=== PATIENT | female | born 1990 | race Caucasian/White ===

== ENCOUNTER → 2019-05-17 12:30 | Outpatient (CLI) | payer BC, SELFPAY ==
[2019-05-17 13:58] LABS: INR 1.92 (0.9-1.1); Prothrombin Time 19.4 seconds (9.4-11.8)
--- NOTE | 2019-05-17 14:52 | HMH.PHAINT ---
ACC-TEXTED PATIENT WITH INR 1.92. SHE INDICATED SHE HAD MISSED ANOTHER DOSE THIS PAST WEEK SHE HAD LAST WEEK TOO. HAVING HER TAKE EXTRA 3 MG DAILY X3 DAYS THEN RESUME 6 MG DAILY THEREAFTER. WILL RECHECK NEXT WEEK.
== END ==
LOC: ACC 12:34 → LAB 12:39
PROVIDERS: Visit Provider Pediatrics Pediatric Cardiology
DX: Z51.81 Encounter for therapeutic drug level monitoring (principal); Z79.01 Long term (current) use of anticoagulants; I48.91 Unspecified atrial fibrillation; Q24.5 Malformation of coronary vessels; Z95.2 Presence of prosthetic heart valve; Z95.1 Presence of aortocoronary bypass graft
CPT/HCPCS: 36415; 85610

== ENCOUNTER → 2019-06-18 11:12 | Outpatient (CLI) | payer SELFPAY ==
[2019-06-18 12:12] LABS: INR 1.58 (0.9-1.1); Prothrombin Time 16.1 seconds (9.4-11.8)
== END ==
PROVIDERS: Visit Provider Pediatrics Pediatric Cardiology
DX: Z51.81 Encounter for therapeutic drug level monitoring (principal); Z79.01 Long term (current) use of anticoagulants; I48.91 Unspecified atrial fibrillation; Q24.5 Malformation of coronary vessels; Z95.2 Presence of prosthetic heart valve
CPT/HCPCS: 36415; 85610

== ENCOUNTER → 2019-06-25 11:42 | Outpatient (CLI) | payer SELFPAY ==
[2019-06-25 12:22] LABS: INR 3.89 (0.9-1.1); Prothrombin Time 37.9 seconds (9.4-11.8)
--- NOTE | 2019-06-25 13:46 | HMH.PHAINT ---
ACC-PATIENT'S INR WAS DRAWN IN LAB (INR 3.89). PATIENT'S THERAPEUTIC GOAL IS 3-4. RECOMMENDED PATIENT STOP LOVENOX INJECTIONS AT THIS TIME AND CONTINUE WITH WARFARIN 6 MG DAILY. PATIENT INDICATED SHE HAS BEEN SICK OVER THE LAST WEEK AND SUSPECTS UTI. HAD HER TALK TO YENI MOSHER, FINANCIAL COUNSELOR, AND TO FOLLOW UP IN [facility] FOR POSSIBLE UTI.
== END ==
PROVIDERS: Visit Provider Pediatrics Pediatric Cardiology
DX: Z51.81 Encounter for therapeutic drug level monitoring (principal); Z79.01 Long term (current) use of anticoagulants; I48.91 Unspecified atrial fibrillation; Q24.5 Malformation of coronary vessels; Z95.2 Presence of prosthetic heart valve
CPT/HCPCS: 36415; 85610

== ENCOUNTER → 2019-07-16 18:30 | Outpatient (CLI) | payer SELFPAY ==
[2019-07-16 18:53] LABS: INR 2.94 (0.9-1.1)
--- NOTE | 2019-08-06 14:03 | HMH.PHAINT ---
08/06/19 INR-PATIENT OBTAINED INR FROM OUTPATIENT LAB. INR WAS 1.3 ON 08/04/19. INQUIRED WITH PATIENT ABOUT MISSING DOSES. PATIENT INDICATED SHE HAD BEEN ADMITTED TO HOSPITAL FOR OVARIAN CYST. GIVEN 2 INJECTIONS OF VITAMIN K DUE TO BLEEDING ASSOCIATED WITH THIS. RECOMMENDED PATIENT TAKE HER LOVENOX INJECTIONS BUT PATIENT IS NOT DOING THIS DUE TO HER PERCEIVED RISK OF HAVING A BLEED. PATIENT TAKING 9 MG DAILY X 3 DAYS, THEN RESUMING WARFARIN 7 MG ON TUE/TUE/TUE; 6 MG ON TUE/TUE/RADHA/SAT. FOLLOW UP INR ON 08/13/19
== END ==
PROVIDERS: Visit Provider Pediatrics Pediatric Cardiology
DX: Z51.81 Encounter for therapeutic drug level monitoring (principal); Z79.01 Long term (current) use of anticoagulants
CPT/HCPCS: 36415; 85610

== ENCOUNTER → 2019-08-13 12:05 | Outpatient (CLI) | payer BC, SELFPAY ==
[2019-08-13 12:45] LABS: INR 2.85 (0.9-1.1); Prothrombin Time 28.2 seconds (9.4-11.8)
== END ==
PROVIDERS: Visit Provider Pediatrics Pediatric Cardiology
DX: Z51.81 Encounter for therapeutic drug level monitoring (principal); Z79.01 Long term (current) use of anticoagulants; I48.91 Unspecified atrial fibrillation; Q24.5 Malformation of coronary vessels; Z95.2 Presence of prosthetic heart valve
CPT/HCPCS: 36415; 85610

== ENCOUNTER → 2019-08-28 12:17 | Outpatient (CLI) | payer BC, SELFPAY ==
[2019-08-28 13:49] LABS: INR 4.81 (0.9-1.1); Prothrombin Time 46.4 seconds (9.4-11.8)
== END ==
PROVIDERS: Visit Provider Pediatrics Pediatric Cardiology
DX: Z51.81 Encounter for therapeutic drug level monitoring (principal); Z79.01 Long term (current) use of anticoagulants
CPT/HCPCS: 36415; 85610

== ENCOUNTER 2019-09-10 13:59 | Outpatient (CLI) | payer BC, SELFPAY ==
[2019-09-10 15:19] LABS: PHA INR Fingerstick 2.1 (0.9-1.1)
== END 2019-09-10 15:21 | disposition home or self-care (01) ==
LOC: ACC 14:02
PROVIDERS: Visit Provider Pediatrics Pediatric Cardiology
DX: Z51.81 Encounter for therapeutic drug level monitoring (principal); Z79.01 Long term (current) use of anticoagulants; I48.91 Unspecified atrial fibrillation; Q24.5 Malformation of coronary vessels; Z95.2 Presence of prosthetic heart valve; Z95.1 Presence of aortocoronary bypass graft
CPT/HCPCS: 85610; 99211; G0463

== ENCOUNTER 2019-09-10 14:37 | Emergency (ER) | payer BC, SELFPAY ==
[2019-09-10 14:49] VITALS: BP 126/79; PULSE 85; RESP 18; TEMP 37.1; O2SAT 99; BMI 20.6
--- NOTE | 2019-09-10 14:56 | HMH.EDUTC ---
[facility] [place]ression: Strep throat Disposition: Home, Self-Care Condition on Discharge: Good Instructions: Strep Throat, DI for Strep Throat Additional Instructions: Drink plenty of fluids. Take tylenol or ibuprofen for pain or fever. Throw your tooth brush away and get a new one tomorrow. Take the medications as directed. Follow up with your regular doctor. GO TO THE ER FOR ANY WORSENING SYMPTOMS Prescriptions: Amoxicillin [Amoxicillin 500mg Tab] 500 mg PO TID 10 Days #30 tab Transmission Status: Received by [id number] Referrals: Provider,Referral, [Primary Care Provider] - Time of Disposition: 15:09 Medical Decision Making - Medical Records Medical records reviewed: No: I reviewed the patient's medical records. - Carlos Inquiry Pt receiving controlled substance: No Vital Signs: 09/10/19 14:49 09/10/19 15:10 Temperature 98.7 F 98.7 F Temperature Source Oral Pulse Rate 85 Pulse Rate [Right Radial] 85 Respiratory Rate 18 18 Blood Pressure 126/79 Blood Pressure [Right Arm] 126/79 Blood Pressure Mean [Right Arm] 94 Blood Pressure Source [Right Arm] Automatic Cuff Blood Pressure Position [Right Arm] Sitting 02 Sat by Pulse Oximetry 99 Oxygen Delivery Method Room Air - Lab Data Lab results reviewed: Yes: I reviewed the patient's lab results. Lab Results 09/10/19 15:03: Strep Scn Rapid Clinic Positive [place] [facility] [place] - General Stated complaint: sore throat,swollen glands,headache Time Seen by Provider: 09/10/19 14:56 Mode of Arrival: Ambulatory Source of Information: Patient, Significant Other Limitations: No Limitations Description of Symptoms (Recalled from Triage Doc. by RN): PT C/O SORE THROAT, EAR PAIN, SCRATCHY THROAT, AND SAYS THAT HER THROAT FEELS SWOLLEN. HEENT Symptoms (Recalled from RN notes): Yes (SORE THROAT AND EARS) Resp Symptoms (Recalled from RN notes): No Skin Symptoms (Recalled from RN notes): No MS Symptoms (Recalled from RN notes): No Functional Status (Recalled from RN notes): N/A - History of Present Illness Provider Complaint: She c/o sore throat, mild head ache, and swollen lymph nodes in her neck for the past 3 days. She denies any cough, fever, known exposure to COVID-19. - Related Data Home Medications Medication Instructions Recorded Confirmed Warfarin Sodium [Coumadin] 6 mg PO DAILY 06/25/19 06/25/19 Previous Rx's Medication Instructions Recorded Nitrofurantoin Monohyd/M-Cryst 100 mg PO BID 10 Days #20 cap 06/25/19 [Macrobid 100 mg Capsule] Phenazopyridine HCl [Pyridium 200 pow PO TID #6 tab 06/25/19 200mg Tablet] Amoxicillin [Amoxicillin 500mg Tab] 500 mg PO TID 10 Days #30 tab 09/10/19 Allergies Allergy/AdvReac Type Severity Reaction Status Date / Time No Known Allergies Allergy Verified 06/25/19 12:59 - Worker's Comp Is this a Worker's Comp case?: No [facility] History - Hepatitis A Screen Drug use history?: No High risk sexual behaviors?: No History of sexually transmitted infection?: No Currently employed?: No Childcare worker?: No Do you have indoor plumbing?: Yes Do you have electricity?: Yes Attestation statement:: This patient has been screened for Hepatitis A risk factors. I have reviewed the patient's past medical history: Yes Medical History: Denies:: Diabetes Mellitus Type 1, Diabetes Mellitus Type 2 - Social History Smoking Status: Never smoker Alcohol Intake: never Occupational Status: employed ROS Obtained: Yes All systems reviewed & no additional complaints - Constitutional Constitutional: Denies chills, Reports fever(s), Reports poor appetite, Reports malaise - Eyes Eyes: Denies eye discharge - ENT Ears, Nose, Mouth, and Throat: Reports as per HPI Physical Exam - General General appearance: alert, in no apparent distress - Head Head exam: atraumatic, normocephalic, normal inspection - Eye Eye exam: Present: normal appeara
[2019-09-10 15:10] VITALS: BP 126/79; PULSE 85; RESP 18; TEMP 37.1; O2SAT 99
[2019-10-12 15:43] LABS: UTC Strep Screen (Rapid) Negative (Negative)
== END 2019-09-10 15:14 | disposition home or self-care (01) ==
PROVIDERS: Emergency Provider Nurse Practitioner Family
DX: J02.0 Streptococcal pharyngitis (principal); Z95.2 Presence of prosthetic heart valve; Z79.899 Other long term (current) drug therapy
CPT/HCPCS: 87880; 99201

== ENCOUNTER 2019-09-26 12:48 | Outpatient (CLI) | payer BC, SELFPAY ==
[2019-09-26 13:44] LABS: PHA INR Fingerstick 3.8 (0.9-1.1)
== END 2019-09-26 13:47 | disposition home or self-care (01) ==
LOC: ACC 12:49
PROVIDERS: Visit Provider Pediatrics Pediatric Cardiology
DX: Z51.81 Encounter for therapeutic drug level monitoring (principal); Z79.01 Long term (current) use of anticoagulants; I48.91 Unspecified atrial fibrillation; Q24.5 Malformation of coronary vessels; Z95.2 Presence of prosthetic heart valve
CPT/HCPCS: 85610; 99211; G0463

== ENCOUNTER 2019-10-12 13:33 | Outpatient (CLI) | payer BC, SELFPAY ==
[2019-10-12 15:28] LABS: PHA INR Fingerstick 2.3 (0.9-1.1)
== END 2019-10-12 15:30 | disposition home or self-care (01) ==
LOC: ACC 13:35
PROVIDERS: Visit Provider Pediatrics Pediatric Cardiology
DX: Z51.81 Encounter for therapeutic drug level monitoring (principal); Z79.01 Long term (current) use of anticoagulants; I48.91 Unspecified atrial fibrillation; Q24.5 Malformation of coronary vessels; Z95.2 Presence of prosthetic heart valve
CPT/HCPCS: 85610; 99211; G0463

== ENCOUNTER 2019-10-12 13:57 | Emergency (ER) | payer BC, SELFPAY ==
[2019-10-12 14:11] VITALS: BP 126/88; PULSE 94; RESP 19; TEMP 37.2; O2SAT 100; BMI 18.8
[2019-10-12 14:18] LABS: UTC Strep Screen (Rapid) Negative (Negative)
--- NOTE | 2019-10-12 14:33 | HMH.EDUTC ---
[facility] [place] Clinical Impression: Pharyngitis Disposition: Home, Self-Care Condition on Discharge: Good Instructions: Sore Throat, DI for Pharyngitis/Tonsillopharyngitis -- Adult Additional Instructions: Drink plenty of fluids. Take tylenol or ibuprofen for pain or fever. Take the medications as directed. Follow up with your regular doctor. GO TO THE ER FOR ANY WORSENING SYMPTOMS Prescriptions: Ondansetron [Zofran 4mg ODT] 4 mg PO Q8HP PRN #10 tab.rapdis PRN Reason: Nausea Transmission Status: Received by [id number] predniSONE [Deltasone 10mg tablet] 10 mg PO BID 3 Days #6 tab Transmission Status: Received by [id number] Azithromycin [Z-Aiden 250mg Tab*] 250 mg PO UD DOSE PK #6 tab Transmission Status: Received by [id number] Referrals: Provider,Referral, MD [Primary Care Provider] - Forms: Work/School Release Time of Disposition: 14:45 Medical Decision Making - Medical Records Medical records reviewed: No: I reviewed the patient's medical records. - Carlos Inquiry Pt receiving controlled substance: No Vital Signs: 10/12/19 14:11 10/12/19 14:45 Temperature 98.9 F 98.9 F Temperature Source Oral Pulse Rate 94 H Pulse Rate [Right Brachial] 94 H Respiratory Rate 19 19 Blood Pressure 126/88 Blood Pressure [Right Arm] 126/88 Blood Pressure Mean [Right Arm] 100 Blood Pressure Source [Right Arm] Automatic Cuff Blood Pressure Position [Right Arm] Sitting 02 Sat by Pulse Oximetry 100 Oxygen Delivery Method Room Air - Lab Data Lab results reviewed: Yes: I reviewed the patient's lab results. Lab Results 10/12/19 13:58: Strep Scn Rapid Clinic Negative Orders (Tests/Meds): ORDERS Category Date Time Status SARS-CoV-2, [place] ([place]) Stat Lab 10/12/19 14:30 Received Strep Screen Confirmation Stat Micro 10/12/19 13:58 Received [facility] [place] HPI - General Stated complaint: sore throat Time Seen by Provider: 10/12/19 14:15 Mode of Arrival: Ambulatory Source of Information: Patient Limitations: No Limitations Description of Symptoms (Recalled from Triage Doc. by RN): PATIENT C/O SORE THROAT X 2 WEEKS. WAS TREATED FOR STREP 2 WEEKS AGO AND SHE FEELS IT IS NOT BETTER. PATIENT ALSO STATES THAT SHE VOMITED AT WORK D/T A MIGRAINE A FEW DAYS AGO AND HER EMPLOYER IS REQUESTING THAT SHE BE TESTED FOR COVID. HEENT Symptoms (Recalled from RN notes): Yes Resp Symptoms (Recalled from RN notes): No Skin Symptoms (Recalled from RN notes): No MS Symptoms (Recalled from RN notes): No Functional Status (Recalled from RN notes): WNL - History of Present Illness Provider Complaint: She states that she did not get much better after being treated for strep throat approx 2 weeks ago. She did take all her prescribed medications. She denies any fever or cough. - Related Data Home Medications Medication Instructions Recorded Confirmed Warfarin Sodium [Coumadin] 6 mg PO DAILY 06/25/19 10/12/19 Previous Rx's Medication Instructions Recorded Azithromycin [Z-Aiden 250mg Tab*] 250 mg PO UD DOSE PK #6 tab 10/12/19 Ondansetron [Zofran 4mg ODT] 4 mg PO Q8HP PRN #10 tab.rapdis 10/12/19 predniSONE [Deltasone 10mg tablet] 10 mg PO BID 3 Days #6 tab 10/12/19 Allergies Allergy/AdvReac Type Severity Reaction Status Date / Time No Known Allergies Allergy Verified 06/25/19 12:59 - Worker's Comp Is this a Worker's Comp case?: No [facility] History - Hepatitis A Screen Drug use history?: No High risk sexual behaviors?: No History of sexually transmitted infection?: No Currently employed?: No Childcare worker?: No Do you have indoor plumbing?: Yes Do you have electricity?: Yes Attestation statement:: This patient has been screened for Hepatitis A risk factors. I have reviewed the patient's past medical history: Yes Medical History: Denies:: Diabetes Mellitus Type 1, Diabetes Mellitus Type 2 - Social History Smoking Status: Never smoker Alcoho
[2019-10-12 14:45] VITALS: BP 126/88; PULSE 94; RESP 19; TEMP 37.2; O2SAT 100
[2019-10-14 08:18] LABS: Covid-19 Nasal PCR Sendout UK Not Detected
== END 2019-10-12 14:55 | disposition home or self-care (01) ==
PROVIDERS: Emergency Provider Nurse Practitioner Family
DX: J02.9 Acute pharyngitis, unspecified (principal)
CPT/HCPCS: 87880; 99202; U0003

== ENCOUNTER 2019-10-23 12:51 | Outpatient (CLI) | payer BC, SELFPAY ==
[2019-10-25 13:19] LABS: PHA INR Fingerstick 2.5 (0.9-1.1)
== END 2019-10-25 13:21 | disposition home or self-care (01) ==
LOC: ACC 12:53
PROVIDERS: Visit Provider Pediatrics Pediatric Cardiology
DX: Z51.81 Encounter for therapeutic drug level monitoring (principal); Z79.01 Long term (current) use of anticoagulants; I48.91 Unspecified atrial fibrillation; Q24.5 Malformation of coronary vessels; Z95.2 Presence of prosthetic heart valve
CPT/HCPCS: 85610; 99211; G0463

== ENCOUNTER → 2019-10-23 13:49 | Outpatient (CLI) | payer BC, SELFPAY ==
[2019-10-25 15:39] LABS: Covid-19 Nasal PCR Sendout Lex NOT DETECTED
== END ==
PROVIDERS: Visit Provider Internal Medicine Cardiovascular Disease
DX: Z01.818 Encounter for other preprocedural examination (principal)
CPT/HCPCS: U0004

== ENCOUNTER 2019-11-22 13:03 | Outpatient (CLI) | payer BC, SELFPAY | END 2019-11-22 15:19 | disposition home or self-care (01) | LOC: ACC 13:04 | PROVIDERS: PCP Pediatrics Pediatric Cardiology; Visit Provider Pediatrics Pediatric Cardiology | DX: Z51.81 Encounter for therapeutic drug level monitoring (principal); Z79.01 Long term (current) use of anticoagulants; I48.91 Unspecified atrial fibrillation; Q24.5 Malformation of coronary vessels; Z95.2 Presence of prosthetic heart valve | CPT/HCPCS: 85610; 99211; G0463 ==

== ENCOUNTER 2019-12-18 12:30 | Outpatient (CLI) | payer BC, SELFPAY ==
[2019-12-18 13:31] LABS: PHA INR Fingerstick 3.1 (0.9-1.1)
== END 2019-12-18 13:34 | disposition home or self-care (01) ==
LOC: ACC 12:33
PROVIDERS: PCP Pediatrics Pediatric Cardiology; Visit Provider Pediatrics Pediatric Cardiology
DX: Z79.01 Long term (current) use of anticoagulants (principal); I48.91 Unspecified atrial fibrillation; Z95.2 Presence of prosthetic heart valve; Q24.5 Malformation of coronary vessels
CPT/HCPCS: 85610; 99211; G0463

== ENCOUNTER 2019-12-19 12:16 | Emergency (ER) | payer BC, SELFPAY ==
[2019-12-19 12:19] VITALS: BP 155/83; PULSE 70; RESP 18; TEMP 36.8; O2SAT 99; BMI 22.1
--- NOTE | 2019-12-19 13:08 | HMH.EDGENADL ---
ED Disposition Clinical Impression: COVID-19 Disposition: Home, Self-Care Condition on Discharge: Good Instructions: DI for Diarrhea and Traveler's Diarrhea -- Adult, DI for Diarrhea and Traveler's Diarrhea -- Child, DI for Nausea -- Adult, DI for Nausea -- Child Referrals: Carol Ann Reinoso [Primary Care Provider] - - Critical Care Critical Care Time: No Attestation: On 12/19/19, the high probability of a clinically significant, sudden or life threatening deterioration of the following system(s) required my full and direct attention, intervention and personal management. The time I documented below is in addition to time spent performing reported procedures but includes the following listed in this critical care notation. Medical Decision Making - Medical Records Medical records reviewed: Yes: I reviewed the patient's medical records. - Carlos Inquiry Pt receiving controlled substance: No Vital Signs: 12/19/19 12:19 Temperature 98.2 F Temperature Source Oral Pulse Rate [Left Radial] 70 Respiratory Rate 18 Blood Pressure [Right Arm] 155/83 H Blood Pressure Mean [Right Arm] 107 Blood Pressure Source [Right Arm] Automatic Cuff Blood Pressure Position [Right Arm] Sitting 02 Sat by Pulse Oximetry 99 Oxygen Delivery Method Room Air Orders (Tests/Meds): ORDERS Category Date Time Status Covid-19 Nasal PCR Sendout Julio Stat Lab 12/19/19 12:35 Ordered Medical Decision Narrative: Presents for coronavirus 19 testing. On examination patient's vitals are stable, no tachycardia, hypoxemia, no significant dyspnea or work of breathing. Patient is well examination, abdominal exam benign, nontender to palpation, patient has mild cramps. Patient had coronavirus 19 swab performed here, patient was discharged in stable condition, follow-up with her primary care doctor for further work-up. Patient will be contacted by her primary care doctor regarding results. General Adult HPI - General Chief complaint: Nausea/Vomiting/Diarrhea Stated complaint: nausa vomiting muscle pain Time Seen by Provider: 12/19/19 13:08 Mode of Arrival: Ambulatory Limitations: No Limitations Description of Symptoms (Recalled from ER Triage Doc. by RN): PT states that she has had a small amout of vomiting once with some left leg pain. States she wants to get tested for covid due to her being in contact with a child whose family memeber has covid. NO direct contact with that person just the child. - History of Present Illness HPI narrative: Patient is a 29-year-old female, denies any past medical surgical history, patient is requesting a covid swab today. Patient has an acquaintance who tested positive for COVID earlier today, patient denies any chest pain, shortness of breath, does have some mild abdominal pain, and one episode of vomiting nonbilious nonbloody. Patient eats she would just like a COVID swab and would like to be discharged home. - Related Data Home Medications Medication Instructions Recorded Confirmed Warfarin Sodium [Coumadin] 6 mg PO DAILY 06/25/19 12/18/19 Warfarin Sodium 1 mg PO MOFR 12/18/19 12/18/19 Allergies Allergy/AdvReac Type Severity Reaction Status Date / Time No Known Allergies Allergy Verified 06/25/19 12:59 [facility] History - Hepatitis A Screen Drug use history?: No High risk sexual behaviors?: No History of sexually transmitted infection?: No Currently employed?: No Childcare worker?: No Do you have indoor plumbing?: Yes Do you have electricity?: Yes Attestation statement:: This patient has been screened for Hepatitis A risk factors. Medical History: Denies:: Diabetes Mellitus Type 1, Diabetes Mellitus Type 2 - Social History Smoking Status: Never smoker Alcohol Intake: never Occupational Status: other ROS Obtained: Yes All systems reviewed & no additional complaints Physical Exam - General General appearance: alert, in no apparent distress - Respiratory Respiratory
[2019-12-19 13:45] VITALS: BP 122/87; PULSE 85; RESP 17; TEMP 36.6; O2SAT 100
[2019-12-20 15:53] LABS: Covid-19 Nasal PCR Sendout Lex NOT DETECTED
== END 2019-12-19 13:45 | disposition home or self-care (01) ==
PROVIDERS: Emergency Provider Emergency Medicine; PCP Nurse Practitioner Family
DX: U07.1 COVID-19 (principal); R03.0 Elevated blood-pressure reading, without diagnosis of hypertension
CPT/HCPCS: 99282; U0004

== ENCOUNTER 2020-01-14 14:22 | Emergency (ER) | payer BC, SELFPAY ==
[2020-01-14 14:33] VITALS: BP 113/78; PULSE 69; RESP 18; TEMP 36.8; O2SAT 96; BMI 22.9
--- NOTE | 2020-01-14 14:42 | HMH.EDUTC ---
[facility] [place] Clinical Impression: Pharyngitis Qualifiers: Pharyngitis/tonsillitis etiology: unspecified etiology Qualified Code(s): J02.9 - Acute pharyngitis, unspecified Disposition: Home, Self-Care Condition on Discharge: Good Instructions: Sore Throat, DI for Pharyngitis/Tonsillopharyngitis -- Adult Additional Instructions: Drink plenty of fluids. Take tylenol or ibuprofen for pain or fever. Take the medications as directed. Follow up with your regular doctor. GO TO THE ER FOR ANY WORSENING SYMPTOMS Prescriptions: Azithromycin [Z-Aiden 250mg Tab*] 250 mg PO UD DOSE PK #6 tab Transmission Status: Received by [id number] Referrals: PCP,No [Primary Care Provider] - Forms: Work/School Release Time of Disposition: 14:49 Medical Decision Making - Medical Records Medical records reviewed: No: I reviewed the patient's medical records. - Carlos Inquiry Pt receiving controlled substance: No Vital Signs: 01/14/20 14:33 01/14/20 14:55 Temperature 98.3 F 98.3 F Temperature Source Oral Oral Pulse Rate 69 Pulse Rate [Radial] 69 Respiratory Rate 18 18 Blood Pressure 113/78 Blood Pressure [Right Arm] 113/78 Blood Pressure Mean [Right Arm] 89 Blood Pressure Source Automatic Cuff Blood Pressure Source [Right Arm] Automatic Cuff Blood Pressure Position Sitting Blood Pressure Position [Right Arm] Sitting 02 Sat by Pulse Oximetry 96 Oxygen Delivery Method Room Air Room Air - Lab Data Lab results reviewed: Yes: I reviewed the patient's lab results. Lab Results 01/14/20 14:39: Strep Scn Rapid Clinic Negative Orders (Tests/Meds): ORDERS Category Date Time Status Strep Screen Confirmation Stat Micro 01/14/20 14:39 Received [facility] [place] HPI - General Stated complaint: sore throat Time Seen by Provider: 01/14/20 14:42 Mode of Arrival: Ambulatory Source of Information: Patient Limitations: DEAF Description of Symptoms (Recalled from Triage Doc. by RN): SORE THROAT, EARS ARE ITCHY HEENT Symptoms (Recalled from RN notes): Yes Resp Symptoms (Recalled from RN notes): No Skin Symptoms (Recalled from RN notes): No MS Symptoms (Recalled from RN notes): No Functional Status (Recalled from RN notes): WNL - History of Present Illness Provider Complaint: She c.o sore throat and feeling bad for the past 2 days. She is also having a mild cough and some nausea. She denies any fever or chills. She denies any known contact with COVID-19. - Related Data Home Medications Medication Instructions Recorded Confirmed Warfarin Sodium [Coumadin] 6 mg PO DAILY 06/25/19 12/18/19 Warfarin Sodium 1 mg PO MOFR 12/18/19 12/18/19 Previous Rx's Medication Instructions Recorded Azithromycin [Z-Aiden 250mg Tab*] 250 mg PO UD DOSE PK #6 tab 01/14/20 Allergies Allergy/AdvReac Type Severity Reaction Status Date / Time No Known Allergies Allergy Verified 06/25/19 12:59 - Worker's Comp Is this a Worker's Comp case?: No [facility] History - Hepatitis A Screen Drug use history?: No High risk sexual behaviors?: No History of sexually transmitted infection?: No Currently employed?: No Childcare worker?: No Do you have indoor plumbing?: Yes Do you have electricity?: Yes Attestation statement:: This patient has been screened for Hepatitis A risk factors. I have reviewed the patient's past medical history: Yes Medical History: Reports:: Internal Pacemaker Denies:: Diabetes Mellitus Type 1, Diabetes Mellitus Type 2 Other Surgeries: Yes: Pacemaker - Social History Smoking Status: Never smoker Alcohol Intake: never Occupational Status: other ROS Obtained: Yes All systems reviewed & no additional complaints - Constitutional Constitutional: Reports chills, Denies fever(s), Reports poor appetite, Reports malaise - Eyes Eyes: Denies eye discharge - ENT Ears, Nose, Mouth, and Throat: Reports as per HPI - Cardiovascular Cardiovascular: Denies chest pain - Respiratory Res
[2020-01-14 14:47] LABS: UTC Strep Screen (Rapid) Negative (Negative)
[2020-01-14 14:55] VITALS: BP 113/78; PULSE 69; RESP 18; TEMP 36.8; O2SAT 96
== END 2020-01-14 14:56 | disposition home or self-care (01) ==
PROVIDERS: Emergency Provider Nurse Practitioner Family
DX: J02.9 Acute pharyngitis, unspecified (principal); Z95.0 Presence of cardiac pacemaker
CPT/HCPCS: 87880; 99201

== ENCOUNTER 2020-01-15 13:02 | Outpatient (CLI) | payer BC, SELFPAY ==
[2020-01-15 13:36] LABS: PHA INR Fingerstick 2.5 (0.9-1.1)
== END 2020-01-15 13:37 | disposition home or self-care (01) ==
PROVIDERS: PCP Internal Medicine Adolescent Medicine; Visit Provider Pediatrics Pediatric Cardiology
DX: Z51.81 Encounter for therapeutic drug level monitoring (principal); Z79.01 Long term (current) use of anticoagulants; I48.91 Unspecified atrial fibrillation; Q24.5 Malformation of coronary vessels; Z95.2 Presence of prosthetic heart valve; Z95.1 Presence of aortocoronary bypass graft
CPT/HCPCS: 85610; 99211; G0463

== ENCOUNTER 2020-02-12 12:56 | Outpatient (CLI) | payer BC, SELFPAY ==
[2020-02-12 14:05] LABS: PHA INR Fingerstick 2.7 (0.9-1.1)
== END 2020-02-12 14:09 | disposition home or self-care (01) ==
LOC: ACC 12:58
PROVIDERS: Visit Provider Pediatrics Pediatric Cardiology
DX: Z51.81 Encounter for therapeutic drug level monitoring (principal); Z79.01 Long term (current) use of anticoagulants; Z95.2 Presence of prosthetic heart valve
CPT/HCPCS: 85610; 99211; G0463

== ENCOUNTER 2020-02-24 12:51 | Emergency (ER) | payer BC, SELFPAY ==
[2020-02-24] VITALS (8 sets, daily range): BP systolic 105–130; BP diastolic 59–88; PULSE 60–91; RESP 12–17; TEMP 36.6–36.7; O2SAT 91–99; BMI 22.9
--- NOTE | 2020-02-24 12:50 | ECG_ITS ---
APPROVED REPORT Exam: Resting ECG HR:81 bpm ECG Measurements Heart Rate 81 AXES TN 136 P 217 QRSd 106 QRS 87 QT 380 T -2 QTc 441 Conclusion Unusual P axis, possible ectopic atrial rhythm with undetermined rhythm irregularity Incomplete left bundle branch block Nonspecific T wave abnormality Abnormal ECG Electronically signed by : Musa Rosales, 02/26/2020 14:48:40
--- NOTE | 2020-02-24 12:57 | XR_ITS ---
PROCEDURE: XR CHEST PORTABLE CLINICAL HISTORY: chest pain COMPARISON: No exams were available for comparison FINDINGS: The cardiomediastinal silhouette and pulmonary vascularity are within normal limits. The lungs are clear without infiltrates, suspicious nodules, or pleural effusions. The left-sided cardiac pacemaker a unipolar Julio road projecting over the right side of the heart at the level of the right hilum there monitor lines overlying the chest and sternal wire sutures are seen as well. No acute bony abnormalities. IMPRESSION: No acute findings. Dictated by: Dr. Loki Nguyen MD 02/24/2020 14:37 Dr. Loki Nguyen MD in [place] 02/24/2020 14:37
--- NOTE | 2020-02-24 13:20 | HMH.EDCP ---
ED Disposition Clinical Impression: Atypical chest pain Disposition: Home, Self-Care Condition on Discharge: Good Instructions: DI for Atypical Chest Pain Additional Instructions: Follow up with your Cardiologists at and return with any concerns. Referrals: PCP,No [Primary Care Provider] - - Critical Care Critical Care Time: No Attestation: On 02/24/20, the high probability of a clinically significant, sudden or life threatening deterioration of the following system(s) required my full and direct attention, intervention and personal management. The time I documented below is in addition to time spent performing reported procedures but includes the following listed in this critical care notation. Medical Decision Making - Carlos Inquiry Pt receiving controlled substance: No Vital Signs: 02/24/20 12:51 02/24/20 12:52 02/24/20 13:00 Temperature 97.9 F Temperature Source Temporal Artery Scan Pulse Rate Pulse Rate [Right] 91 H 91 H 85 Respiratory Rate 17 Blood Pressure Blood Pressure [Right Arm] 122/88 122/88 130/80 Blood Pressure Mean [Right Arm] 99 99 96 Blood Pressure Source Blood Pressure Source [Right Arm] Automatic Cuff Automatic Cuff Blood Pressure Position Blood Pressure Position [Right Arm] Sitting Sitting 02 Sat by Pulse Oximetry 91 L 99 99 Oxygen Delivery Method Room Air 02/24/20 13:30 02/24/20 13:52 02/24/20 14:00 Temperature Temperature Source Pulse Rate Pulse Rate [Right] 71 60 60 Respiratory Rate Blood Pressure Blood Pressure [Right Arm] 111/74 105/59 L 105/59 L Blood Pressure Mean [Right Arm] 86 74 74 Blood Pressure Source Blood Pressure Source [Right Arm] Automatic Cuff Automatic Cuff Automatic Cuff Blood Pressure Position Blood Pressure Position [Right Arm] Sitting Sitting Sitting 02 Sat by Pulse Oximetry 95 96 95 Oxygen Delivery Method Room Air Room Air Room Air 02/24/20 14:22 02/24/20 14:25 Temperature 97.9 F 98.1 F Temperature Source Oral Pulse Rate 62 90 Pulse Rate [Right] Respiratory Rate 15 12 Blood Pressure 105/59 L 106/60 L Blood Pressure [Right Arm] Blood Pressure Mean [Right Arm] Blood Pressure Source Automatic Cuff Blood Pressure Source [Right Arm] Blood Pressure Position Sitting Blood Pressure Position [Right Arm] 02 Sat by Pulse Oximetry Oxygen Delivery Method Room Air - Lab Data Lab Results 02/24/20 13:18: WBC 7.5, RBC 5.58 H, Hgb 17.1 H, Hct 51.2 H, MCV 91.7, MCH 30.7, MCHC 33.5, RDW 12.5, Plt Count 270, MPV 7.8, Neut % (Auto) 51.4, Lymph % (Auto) 35.7, Beltrami % (Auto) 4.9, Eos % (Auto) 7.2, Baso % (Auto) 0.8, Neut # (Auto) 3.9, Lymph # (Auto) 2.7, [place]trami # (Auto) 0.4, Eos # (Auto) 0.5 H, Baso # (Auto) 0.1 02/24/20 13:18: Sodium 142, Potassium 3.9, Chloride 102, Carbon Dioxide 28, Anion Gap 15.9 H, BUN 14, Creatinine 0.70, Estimated Creat Clear 95, Estimated GFR 100, Est GFR ( Amer) 121, Glucose 79, Calcium 10.1, Troponin I < 0.01 02/24/20 13:18: Serum HCG, Qual Negative Result diagrams: 02/24/20 13:18 02/24/20 13:18 Orders (Tests/Meds): ED MEDICATIONS Discontinued Medications Generic Name Dose Route Start Last Admin Trade Name Freq PRN Reason Stop Dose Admin Aspirin 324 mg 02/24/20 12:57 02/24/20 13:03 Aspirin 81mg Chewable Tablet PO 02/24/20 12:58 324 mg ONCE ONE Administration Naproxen 500 mg 02/24/20 13:59 02/24/20 14:20 Naproxen 500mg Tablet PO 02/24/20 14:00 500 mg ONCE ONE Administration Medical Decision Narrative: The patient is a 29 year old female who presents with chest pain. On arrival she is awake, alert stable. EKG obtained and is nonischemic. Benign exam and well appearing. Labs including CBC, BMP, troponins were obtained and unremarkable. CXR is unremarkable per my read. Urine is negative. Given naproxen for pain with improvement. ON reassesment patient is feeling better. Will discharge her with follow up with her Cardiol
[2020-02-24 13:28] LABS: Basophils # 0.1 K/mm3 (0-0.2); Basophils % 0.8 % (0.1-2.0); Eosinophils # 0.5 K/mm3 (0.0-0.4); Eosinophils % 7.2 % (0.1-12.0); Hematocrit 51.2 % (37.0-47.0); Hemoglobin 17.1 g/dL (12.2-16.2); Lymphocytes # 2.7 K/mm3 (0.7-4.5); Lymphocytes % 35.7 % (10-50); Mean Corpuscular HGB Conc 33.5 g/dL (31.8-35.4); Mean Corpuscular Hemoglobin 30.7 pg (27.0-31.2); Mean Corpuscular Volume 91.7 fl (81-99); Mean Platelet Volume 7.8 fl (7.4-10.4); Monocytes # 0.4 K/mm3 (0.1-1.0); Monocytes % 4.9 % (1.7-9.3); Neutrophils # 3.9 K/mm3 (1.8-7.8); Neutrophils % 51.4 % (37.0-80.0); Platelet Count 270 K/mm3 (142-424); Red Blood Count 5.58 M/mm3 (4.20-5.40); Red Cell Distribution Width 12.5 % (11.5-17.5); White Blood Count 7.5 K/mm3 (4.8-10.8)
[2020-02-24 13:31] LABS: Chloride 102 mmol/L (98-107)
[2020-02-24 13:32] LABS: Potassium 3.9 mmoL/L (3.5-5.1); Sodium 142 mmol/L (136-145)
[2020-02-24 13:35] LABS: Anion Gap 15.9 mEq/L (5-15); Blood Urea Nitrogen 14 mg/dl (7-17); Calcium 10.1 mg/dl (8.4-10.2); Carbon Dioxide 28 mmol/L (22.0-30.0); Creatinine Clearance Estimated 95 mL/min (50-200); Estimated Glomerular Filt Rate 100 ml/min (>60); GFR (African American) 121 ML/MIN (>60); Glucose 79 mg/dl (74-100)
--- NOTE | 2020-02-24 13:37 | PC.NURSE ---
Rad at bedside
[2020-02-24 13:47] LABS: Troponin I < 0.01 ng/ml (0.00-0.034)
[2020-02-24 13:49] LABS: HCG Qualitative, Serum Negative (Negative)
== END 2020-02-24 14:45 | disposition home or self-care (01) ==
PROVIDERS: Emergency Provider Emergency Medicine
DX: R07.89 Other chest pain (principal); Z95.0 Presence of cardiac pacemaker; Z95.1 Presence of aortocoronary bypass graft; Z95.2 Presence of prosthetic heart valve; Z79.899 Other long term (current) drug therapy
CPT/HCPCS: 71045; 80048; 84484; 84703; 85025; 93005; 99283

== ENCOUNTER 2020-02-27 12:58 | Outpatient (CLI) | payer BC, SELFPAY ==
[2020-02-27 13:47] LABS: PHA INR Fingerstick 1.8 (0.9-1.1)
== END 2020-02-27 13:53 | disposition home or self-care (01) ==
LOC: ACC 12:59
PROVIDERS: Visit Provider Pediatrics Pediatric Cardiology
DX: Z51.81 Encounter for therapeutic drug level monitoring (principal); Z79.01 Long term (current) use of anticoagulants; I48.91 Unspecified atrial fibrillation; Q24.5 Malformation of coronary vessels; Z95.2 Presence of prosthetic heart valve; Z95.1 Presence of aortocoronary bypass graft
CPT/HCPCS: 85610; 99211; G0463

== ENCOUNTER → 2020-03-10 16:28 | Outpatient (CLI) | payer BC, SELFPAY | PROVIDERS: Visit Provider Family Medicine | DX: N39.0 Urinary tract infection, site not specified (principal) | CPT/HCPCS: 87086 ==

== ENCOUNTER 2020-03-12 11:25 | Outpatient (CLI) | payer BC, SELFPAY ==
[2020-03-12 13:42] LABS: Prothrombin Time 60.9 seconds (9.4-11.8)
[2020-03-12 15:34] LABS: PHA INR Fingerstick 5.4 (0.9-1.1)
== END 2020-03-12 15:36 | disposition home or self-care (01) ==
LOC: ACC 11:26
PROVIDERS: PCP Family Medicine; Visit Provider Family Medicine
DX: Z51.81 Encounter for therapeutic drug level monitoring (principal); Z79.01 Long term (current) use of anticoagulants; I48.91 Unspecified atrial fibrillation; Q24.5 Malformation of coronary vessels; Z95.2 Presence of prosthetic heart valve
CPT/HCPCS: 36415; 85610; 99211; G0463

== ENCOUNTER → 2020-03-12 11:55 | Outpatient (CLI) | payer BC, SELFPAY | PROVIDERS: Visit Provider Family Medicine | DX: Z51.81 Encounter for therapeutic drug level monitoring (principal); Z79.01 Long term (current) use of anticoagulants | CPT/HCPCS: 36415; 85610 ==

== ENCOUNTER 2020-03-17 13:01 | Outpatient (CLI) | payer BC, SELFPAY ==
[2020-03-17 14:59] LABS: PHA INR Fingerstick 3.9 (0.9-1.1)
== END 2020-03-17 15:33 | disposition home or self-care (01) ==
LOC: ACC 13:01
PROVIDERS: PCP Family Medicine; Visit Provider Family Medicine
DX: Z51.81 Encounter for therapeutic drug level monitoring (principal); Z79.01 Long term (current) use of anticoagulants; I48.91 Unspecified atrial fibrillation; Q24.5 Malformation of coronary vessels; Z95.2 Presence of prosthetic heart valve
CPT/HCPCS: 85610; 99211; G0463

== ENCOUNTER 2020-03-27 12:51 | Outpatient (CLI) | payer BC, SELFPAY ==
[2020-03-27 14:37] LABS: PHA INR Fingerstick 3.9 (0.9-1.1)
== END 2020-03-27 14:39 | disposition home or self-care (01) ==
LOC: ACC 12:52
PROVIDERS: PCP Family Medicine; Visit Provider Family Medicine
DX: Z51.81 Encounter for therapeutic drug level monitoring (principal); Z79.01 Long term (current) use of anticoagulants; I48.91 Unspecified atrial fibrillation; Q24.5 Malformation of coronary vessels; Z95.2 Presence of prosthetic heart valve; Z95.1 Presence of aortocoronary bypass graft
CPT/HCPCS: 85610; 99211; G0463

== ENCOUNTER 2020-04-16 13:00 | Outpatient (CLI) | payer BC, SELFPAY ==
[2020-04-16 16:02] LABS: INR 6.19 (0.9-1.1); Prothrombin Time 58.2 seconds (9.4-11.8)
== END 2020-04-16 16:10 | disposition home or self-care (01) ==
LOC: ACC 13:01
PROVIDERS: PCP Family Medicine; Visit Provider Family Medicine
DX: Z51.81 Encounter for therapeutic drug level monitoring (principal); Z79.01 Long term (current) use of anticoagulants
CPT/HCPCS: 36415; 85610; 99211; G0463

== ENCOUNTER 2020-04-22 12:21 | Outpatient (CLI) | payer BC, SELFPAY ==
[2020-04-22 14:15] LABS: PHA INR Fingerstick 2.3 (0.9-1.1)
== END 2020-04-22 14:16 | disposition home or self-care (01) ==
PROVIDERS: PCP Family Medicine; Visit Provider Family Medicine
DX: Z51.81 Encounter for therapeutic drug level monitoring (principal); Z79.01 Long term (current) use of anticoagulants; I48.91 Unspecified atrial fibrillation; Q24.5 Malformation of coronary vessels; Z95.2 Presence of prosthetic heart valve
CPT/HCPCS: 85610; 99211; G0463

== ENCOUNTER 2020-04-30 12:44 | Outpatient (CLI) | payer BC, SELFPAY ==
--- NOTE | 2020-04-30 13:29 | XR_ITS ---
PROCEDURE: XR WRIST LT MIN 3V CLINICAL INDICATION: left wrist pain/ cyst evaluation COMPARISON: No exams were available for comparison FINDINGS: No fracture or dislocation. No lytic or blastic change. There is normal mineralization. The joint spaces are well-preserved. No significant degenerative/arthritic changes. No erosive changes evident. Other findings:None. IMPRESSION: No acute findings. Dictated by: Foster Patel MD 04/30/2020 17:46 Foster Patel MD in [facility] 04/30/2020 17:46
[2020-04-30 14:58] LABS: Prothrombin Time 54.9 seconds (9.4-11.8)
[2020-04-30 15:04] LABS: PHA INR Fingerstick 4.7 (0.9-1.1)
== END 2020-04-30 15:23 | disposition home or self-care (01) ==
PROVIDERS: PCP Family Medicine; Visit Provider Family Medicine
DX: M25.532 Pain in left wrist (principal); Z51.81 Encounter for therapeutic drug level monitoring; Z79.01 Long term (current) use of anticoagulants
CPT/HCPCS: 36415; 73110; 85610; 99211; G0463

== ENCOUNTER 2020-05-07 14:30 | Outpatient (CLI) | payer BC, SELFPAY ==
[2020-05-07 15:16] LABS: PHA INR Fingerstick 1.5 (0.9-1.1)
== END 2020-05-07 15:18 | disposition home or self-care (01) ==
LOC: ACC 14:30
PROVIDERS: PCP Family Medicine; Visit Provider Family Medicine
DX: Z51.81 Encounter for therapeutic drug level monitoring (principal); Z79.01 Long term (current) use of anticoagulants; I48.91 Unspecified atrial fibrillation; Q24.5 Malformation of coronary vessels; Z95.2 Presence of prosthetic heart valve
CPT/HCPCS: 85610; 99211; G0463

== ENCOUNTER 2020-05-21 14:30 | Outpatient (CLI) | payer BC, SELFPAY ==
[2020-05-21 16:16] LABS: PHA INR Fingerstick 2.9 (0.9-1.1)
== END 2020-05-21 16:19 | disposition home or self-care (01) ==
LOC: ACC 14:31
PROVIDERS: PCP Family Medicine; Visit Provider Family Medicine
DX: Z51.81 Encounter for therapeutic drug level monitoring (principal); Z79.01 Long term (current) use of anticoagulants; I48.91 Unspecified atrial fibrillation; Q24.5 Malformation of coronary vessels; Z95.2 Presence of prosthetic heart valve
CPT/HCPCS: 85610; 99211; G0463

== ENCOUNTER 2020-06-13 14:22 | Outpatient (CLI) | payer BC, SELFPAY ==
[2020-06-13 15:44] LABS: INR 6.16 (0.9-1.1); Prothrombin Time 56.3 seconds (9.4-11.8)
[2020-06-13 15:57] LABS: PHA INR Fingerstick 5.1 (0.9-1.1)
== END 2020-06-13 16:02 | disposition home or self-care (01) ==
PROVIDERS: PCP Family Medicine; Visit Provider Family Medicine
DX: Z51.81 Encounter for therapeutic drug level monitoring (principal); Z79.01 Long term (current) use of anticoagulants; I48.91 Unspecified atrial fibrillation; Q24.5 Malformation of coronary vessels; Z95.2 Presence of prosthetic heart valve
CPT/HCPCS: 36415; 85610; 99211; G0463

== ENCOUNTER 2020-06-18 13:21 | Outpatient (CLI) | payer BC, SELFPAY ==
[2020-06-18 14:03] LABS: PHA INR Fingerstick 2.7 (0.9-1.1)
== END 2020-06-18 14:22 | disposition home or self-care (01) ==
LOC: ACC 13:22
PROVIDERS: PCP Family Medicine; Visit Provider Family Medicine
DX: Z51.81 Encounter for therapeutic drug level monitoring (principal); Z79.01 Long term (current) use of anticoagulants; I48.91 Unspecified atrial fibrillation; Q24.5 Malformation of coronary vessels; Z95.2 Presence of prosthetic heart valve; Z95.1 Presence of aortocoronary bypass graft
CPT/HCPCS: 85610; 99211; G0463

== ENCOUNTER 2020-07-03 14:58 | Outpatient (CLI) | payer BC, SELFPAY ==
[2020-07-03 15:54] LABS: PHA INR Fingerstick 1.9 (0.9-1.1)
== END 2020-07-03 15:56 | disposition home or self-care (01) ==
LOC: ACC 14:59
PROVIDERS: PCP Family Medicine; Visit Provider Family Medicine
DX: Z51.81 Encounter for therapeutic drug level monitoring (principal); Z79.01 Long term (current) use of anticoagulants; I48.91 Unspecified atrial fibrillation; Q24.5 Malformation of coronary vessels; Z95.2 Presence of prosthetic heart valve; Z95.1 Presence of aortocoronary bypass graft
CPT/HCPCS: 85610; 99211; G0463

== ENCOUNTER → 2020-07-04 16:53 | Outpatient (CLI) | payer BC, SELFPAY ==
[2020-07-04 18:10] LABS: HCG Qualitative, Serum Negative (Negative)
== END ==
PROVIDERS: Visit Provider Family Medicine
DX: N64.4 Mastodynia (principal); R11.2 Nausea with vomiting, unspecified
CPT/HCPCS: 84703

== ENCOUNTER 2020-07-17 13:27 | Outpatient (CLI) | payer BC, SELFPAY | END 2020-07-17 15:43 | disposition home or self-care (01) | LOC: ACC 13:28 | PROVIDERS: PCP Family Medicine; Visit Provider Family Medicine | DX: I48.91 Unspecified atrial fibrillation (principal); Q24.5 Malformation of coronary vessels; Z95.2 Presence of prosthetic heart valve | CPT/HCPCS: 85610; 99211; G0463 ==

== ENCOUNTER 2020-08-08 14:08 | Outpatient (CLI) | payer BC, SELFPAY ==
[2020-08-08 15:07] LABS: INR 5.59 (0.9-1.1); Prothrombin Time 58.1 seconds (10.1-12.5)
== END 2020-08-08 16:21 | disposition home or self-care (01) ==
LOC: ACC 14:09
PROVIDERS: PCP Family Medicine; Visit Provider Family Medicine
DX: Z51.81 Encounter for therapeutic drug level monitoring (principal); Z79.01 Long term (current) use of anticoagulants; I48.91 Unspecified atrial fibrillation; Q24.5 Malformation of coronary vessels; Z95.2 Presence of prosthetic heart valve
CPT/HCPCS: 36415; 85610; 99211; G0463

== ENCOUNTER 2020-08-14 13:52 | Outpatient (CLI) | payer BC, SELFPAY ==
[2020-08-14 15:21] LABS: PHA INR Fingerstick 2.4 (0.9-1.1)
== END 2020-08-14 15:28 | disposition home or self-care (01) ==
LOC: ACC 13:53
PROVIDERS: PCP Emergency Medicine; Visit Provider Family Medicine
DX: Z51.81 Encounter for therapeutic drug level monitoring (principal); Z79.01 Long term (current) use of anticoagulants; I48.91 Unspecified atrial fibrillation; Q24.5 Malformation of coronary vessels; Z95.2 Presence of prosthetic heart valve
CPT/HCPCS: 85610; 99211; G0463

== ENCOUNTER 2020-09-05 12:55 | Outpatient (CLI) | payer BC, SELFPAY ==
[2020-09-05 15:36] LABS: PHA INR Fingerstick 2.1 (0.9-1.1)
== END 2020-09-05 15:38 | disposition home or self-care (01) ==
LOC: ACC 12:55
PROVIDERS: PCP Emergency Medicine; Visit Provider Family Medicine
DX: Z51.81 Encounter for therapeutic drug level monitoring (principal); Z79.01 Long term (current) use of anticoagulants; I48.91 Unspecified atrial fibrillation; Q24.5 Malformation of coronary vessels; Z95.2 Presence of prosthetic heart valve
CPT/HCPCS: 85610; 99211; G0463

== ENCOUNTER → 2020-09-05 17:07 | Outpatient (CLI) | payer BC, SELFPAY | PROVIDERS: Visit Provider Family Medicine | DX: N39.0 Urinary tract infection, site not specified (principal) | CPT/HCPCS: 87086; 87088; 87186 ==

== ENCOUNTER 2020-09-09 11:52 | Outpatient (CLI) | payer BC, SELFPAY ==
[2020-09-09 13:33] LABS: PHA INR Fingerstick 2.1 (0.9-1.1)
== END 2020-09-09 13:35 | disposition home or self-care (01) ==
LOC: ACC 11:53
PROVIDERS: PCP Family Medicine; Visit Provider Family Medicine
DX: Z51.81 Encounter for therapeutic drug level monitoring (principal); Z79.01 Long term (current) use of anticoagulants; I48.91 Unspecified atrial fibrillation; Q24.5 Malformation of coronary vessels; Z95.2 Presence of prosthetic heart valve
CPT/HCPCS: 85610; 99211; G0463

== ENCOUNTER → 2020-09-15 14:05 | Outpatient (CLI) | payer BC, SELFPAY ==
--- NOTE | 2020-09-15 14:10 | US_ITS ---
PROCEDURE: US TRANSVAGINAL CLINICAL INDICATION: pelvic pain/ check for abnormalities COMPARISON: No exams were available for comparison FINDINGS: UTERUS: 7cm x 4cmx 3cm with a combined endometrial thickness of 3.5mm LEFT OVARY: [id number] with a volume of 0.9ml. RIGHT OVARY: [id number] with a volume of 45ml. The right ovary is enlarged. There are at least 3 complex cyst within the right ovary measuring approximately 1.5 cm each containing low level echoes suggesting small hemorrhagic cyst. No cul-de-sac fluid apparent. IMPRESSION: Enlarged right ovary containing at least 3 complex cysts. Consider 6-8 week follow-up to confirm resolution. Dictated by: Foster Patel MD 09/16/2020 07:58 Foster Patel MD in [facility] 09/16/2020 07:58
== END ==
PROVIDERS: PCP Family Medicine; Visit Provider Nurse Practitioner Obstetrics & Gynecology
DX: R10.2 Pelvic and perineal pain (principal)
CPT/HCPCS: 76830

== ENCOUNTER 2020-09-30 13:55 | Outpatient (CLI) | payer BC, SELFPAY ==
[2020-09-30 15:10] LABS: PHA INR Fingerstick 2.3 (0.9-1.1)
== END 2020-09-30 15:18 | disposition home or self-care (01) ==
LOC: ACC 13:56
PROVIDERS: PCP Family Medicine; Visit Provider Family Medicine
DX: Z51.81 Encounter for therapeutic drug level monitoring (principal); Z79.01 Long term (current) use of anticoagulants; I48.91 Unspecified atrial fibrillation; Q24.5 Malformation of coronary vessels; Z95.2 Presence of prosthetic heart valve
CPT/HCPCS: 85610; 99211; G0463

== ENCOUNTER 2020-10-16 13:55 | Outpatient (CLI) | payer BC, SELFPAY ==
[2020-10-16 15:04] LABS: PHA INR Fingerstick 1.7 (0.9-1.1)
== END 2020-10-16 15:20 | disposition home or self-care (01) ==
LOC: ACC 13:55
PROVIDERS: PCP Family Medicine; Visit Provider Family Medicine
DX: Z51.81 Encounter for therapeutic drug level monitoring (principal); Z79.01 Long term (current) use of anticoagulants; I48.91 Unspecified atrial fibrillation; Q24.5 Malformation of coronary vessels; Z95.2 Presence of prosthetic heart valve
CPT/HCPCS: 85610; 99211; G0463

== ENCOUNTER 2020-10-31 13:59 | Outpatient (CLI) | payer BC, SELFPAY ==
[2020-10-31 15:03] LABS: PHA INR Fingerstick 2.7 (0.9-1.1)
== END 2020-10-31 15:11 | disposition home or self-care (01) ==
LOC: ACC 14:00
PROVIDERS: PCP Family Medicine; Visit Provider Family Medicine
DX: Z51.81 Encounter for therapeutic drug level monitoring (principal); Z79.01 Long term (current) use of anticoagulants; I48.91 Unspecified atrial fibrillation; Q24.5 Malformation of coronary vessels; Z95.2 Presence of prosthetic heart valve
CPT/HCPCS: 85610; 99211; G0463

== ENCOUNTER → 2020-11-19 19:08 | Outpatient (CLI) | payer BC, SELFPAY | PROVIDERS: Visit Provider Nurse Practitioner Family | DX: N39.0 Urinary tract infection, site not specified (principal) | CPT/HCPCS: 87086; 87088; 87186 ==

== ENCOUNTER 2020-11-21 14:12 | Outpatient (CLI) | payer BC, SELFPAY ==
[2020-11-21 18:00] LABS: PHA INR Fingerstick 3.9 (0.9-1.1)
== END 2020-11-21 18:04 | disposition home or self-care (01) ==
LOC: ACC 14:13
PROVIDERS: PCP Family Medicine; Visit Provider Family Medicine
DX: Z51.81 Encounter for therapeutic drug level monitoring (principal); Z79.01 Long term (current) use of anticoagulants; I48.91 Unspecified atrial fibrillation; Q24.5 Malformation of coronary vessels; Z95.2 Presence of prosthetic heart valve
CPT/HCPCS: 85610; 99211; G0463

== ENCOUNTER 2020-12-10 14:38 | Outpatient (CLI) | payer BC, SELFPAY ==
[2020-12-10 16:03] LABS: Prothrombin Time 44.3 seconds (10.1-12.5)
[2020-12-10 16:06] LABS: INR 4.17 (0.9-1.1)
== END 2020-12-10 16:38 | disposition home or self-care (01) ==
PROVIDERS: PCP Family Medicine; Visit Provider Family Medicine
DX: Z51.81 Encounter for therapeutic drug level monitoring (principal); Z79.01 Long term (current) use of anticoagulants; I48.91 Unspecified atrial fibrillation; Q24.5 Malformation of coronary vessels; Z95.2 Presence of prosthetic heart valve
CPT/HCPCS: 36415; 85610; 99211; G0463

== ENCOUNTER 2020-12-23 14:17 | Outpatient (CLI) | payer BC, SELFPAY ==
[2020-12-23 16:00] LABS: PHA INR Fingerstick 2.8 (0.9-1.1)
== END 2020-12-23 16:04 | disposition home or self-care (01) ==
LOC: ACC 14:19
PROVIDERS: PCP Family Medicine; Visit Provider Family Medicine
DX: I48.91 Unspecified atrial fibrillation (principal); Q24.5 Malformation of coronary vessels; Z95.2 Presence of prosthetic heart valve; Z51.81 Encounter for therapeutic drug level monitoring; Z79.01 Long term (current) use of anticoagulants
CPT/HCPCS: 85610; 99211; G0463

== ENCOUNTER 2020-12-23 14:51 | Emergency (ER) | payer BC, SELFPAY ==
[2020-12-23 15:41] VITALS: BP 110/64; PULSE 64; RESP 16; TEMP 37; O2SAT 99; BMI 22.9
[2020-12-23 15:48] VITALS: BP 112/64; PULSE 64; RESP 16; TEMP 36.6; O2SAT 100
--- NOTE | 2020-12-23 15:50 | HMH.EDUTC ---
[facility] [place] Clinical Impression: COVID-19 Disposition: Home, Self-Care Condition on Discharge: Good Instructions: DI for COVID-19 (Suspected or Confirmed ), Preventing the Spread of Coronavirus Discharge Instructions Referrals: Brian Narayan MD [Primary Care Provider] - Forms: Work/School Release Medical Decision Making - Carlos Inquiry Pt receiving controlled substance: No Carlos was queried for this patient: No Vital Signs: 12/23/20 15:41 12/23/20 15:48 Temperature 98.6 F 98 F Temperature Source Temporal Artery Scan Pulse Rate 64 Pulse Rate [Right] 64 Respiratory Rate 16 16 Blood Pressure 112/64 Blood Pressure [Right Arm] 110/64 Blood Pressure Mean [Right Arm] 79 Blood Pressure Source Automatic Cuff Blood Pressure Source [Right Arm] Automatic Cuff Blood Pressure Position Sitting Blood Pressure Position [Right Arm] Sitting 02 Sat by Pulse Oximetry 99 Oxygen Delivery Method Room Air Room Air Orders (Tests/Meds): ORDERS Category Date Time Status Covid-19 Nasal PCR ([facility]) Routine Lab 12/23/20 15:37 Ordered [facility] H[place] - General Stated complaint: exposure and symthoms Time Seen by Provider: 12/23/20 15:50 Mode of Arrival: Ambulatory Source of Information: Patient Limitations: No Limitations Description of Symptoms (Recalled from Triage Doc. by RN): pt here for covid test. Brother in law tested positive on . PT c/o sinus problems HEENT Symptoms (Recalled from RN notes): No Resp Symptoms (Recalled from RN notes): No Skin Symptoms (Recalled from RN notes): No MS Symptoms (Recalled from RN notes): No Functional Status (Recalled from RN notes): na - History of Present Illness Provider Complaint: Patient advised that brother in law recently tested positive for COVID and she has been around him recently States that she is having a scratchy throat and nasal congestion and wanted to get tested for COVID - Related Data Home Medications Medication Instructions Recorded Confirmed Warfarin Sodium 1 mg PO MOWEFR 12/18/19 11/19/20 Warfarin Sodium 6 mg PO DAILY 03/17/20 11/19/20 Previous Rx's Medication Instructions Recorded cephalexin 500 mg capsule 500 mg PO BID 10 Days #20 cap 11/19/20 fluconazole 150 mg tablet 150 mg PO Q3D 0 Days #2 tab 11/19/20 Allergies Allergy/AdvReac Type Severity Reaction Status Date / Time No Known Allergies Allergy Verified 11/19/20 14:23 - Worker's Comp Is this a Worker's Comp case?: No [facility] History - Hepatitis A Screen Drug use history?: No High risk sexual behaviors?: No History of sexually transmitted infection?: No Currently employed?: No Childcare worker?: No Do you have indoor plumbing?: Yes Do you have electricity?: Yes Attestation statement:: This patient has been screened for Hepatitis A risk factors. I have reviewed the patient's past medical history: Yes Medical History: Reports:: Internal Pacemaker, Urinary Tract Infection Denies:: Diabetes Mellitus Type 1, Diabetes Mellitus Type 2 Other Surgeries: Yes: Cardiac Surgery, Dilation and Curettage, Mitral Valve Replacement, Pacemaker, Tubal Ligation Amputation: No Fractures: No - Social History Smoking Status: Never smoker Alcohol Intake: never Occupational Status: employed Family Hx:: No significant family history ROS Obtained: Yes All systems reviewed & no additional complaints, Yes Systems reviewed as appropriate & no additional complaints - Constitutional Constitutional: Reports system reviewed and no additional complaints, except as docu, Reports body ache, Reports chills, Denies fever(s), Reports headache(s) - ENT Ears, Nose, Mouth, and Throat: Reports system reviewed and no additional complaints, except as docu, Reports nasal congestion, Reports nasal discharge - Cardiovascular Cardiovascular: Reports system reviewed and no additional complaints, except as docu - Respiratory Respiratory: Reports system reviewed and no additional complaints, e
== END 2020-12-23 15:49 | disposition home or self-care (01) ==
PROVIDERS: Emergency Provider Nurse Practitioner; PCP Family Medicine
DX: Z20.822 Contact with and (suspected) exposure to COVID-19 (principal); Z95.0 Presence of cardiac pacemaker
CPT/HCPCS: 99202; G0463; U0003

== ENCOUNTER 2021-01-07 14:07 | Outpatient (CLI) | payer BC, SELFPAY ==
[2021-01-07 16:29] LABS: PHA INR Fingerstick 2.4 (0.9-1.1)
== END 2021-01-07 16:31 | disposition home or self-care (01) ==
LOC: ACC 14:08
PROVIDERS: PCP Family Medicine; Visit Provider Family Medicine
DX: Z51.81 Encounter for therapeutic drug level monitoring (principal); Z79.01 Long term (current) use of anticoagulants; I48.91 Unspecified atrial fibrillation; Q24.5 Malformation of coronary vessels; Z95.2 Presence of prosthetic heart valve
CPT/HCPCS: 85610; 99211; G0463

== ENCOUNTER → 2021-01-16 17:01 | Outpatient (CLI) | payer BC, SELFPAY | PROVIDERS: PCP Family Medicine; Visit Provider Nurse Practitioner | DX: Z20.822 Contact with and (suspected) exposure to COVID-19 (principal) | CPT/HCPCS: C9803; U0003; U0005 ==

== ENCOUNTER → 2021-01-21 17:06 | Outpatient (CLI) | payer BC, SELFPAY | PROVIDERS: PCP Family Medicine; Visit Provider Nurse Practitioner | DX: Z20.822 Contact with and (suspected) exposure to COVID-19 (principal) | CPT/HCPCS: C9803; U0003; U0005 ==

== ENCOUNTER 2021-01-22 13:24 | Outpatient (CLI) | payer BC, SELFPAY ==
[2021-01-22 16:52] LABS: PHA INR Fingerstick 1.8 (0.9-1.1)
== END 2021-01-22 16:56 | disposition home or self-care (01) ==
LOC: ACC 13:26
PROVIDERS: PCP Family Medicine; Visit Provider Family Medicine
DX: Z51.81 Encounter for therapeutic drug level monitoring (principal); Z79.01 Long term (current) use of anticoagulants; I48.91 Unspecified atrial fibrillation; Q24.5 Malformation of coronary vessels; Z95.2 Presence of prosthetic heart valve
CPT/HCPCS: 85610; 99211; G0463

== ENCOUNTER → 2021-01-28 12:21 | Outpatient (CLI) | payer BC, SELFPAY | PROVIDERS: PCP Family Medicine; Visit Provider Nurse Practitioner | DX: Z20.822 Contact with and (suspected) exposure to COVID-19 (principal) | CPT/HCPCS: C9803; U0003; U0005 ==

== ENCOUNTER 2021-02-13 14:31 | Outpatient (CLI) | payer BC, SELFPAY ==
[2021-02-13 15:08] LABS: PHA INR Fingerstick 2.1 (0.9-1.1)
== END 2021-02-13 15:09 | disposition home or self-care (01) ==
LOC: ACC 14:31
PROVIDERS: PCP Emergency Medicine; Visit Provider Emergency Medicine
DX: Z51.81 Encounter for therapeutic drug level monitoring (principal); Z79.01 Long term (current) use of anticoagulants; I48.91 Unspecified atrial fibrillation; Q24.5 Malformation of coronary vessels; Z95.2 Presence of prosthetic heart valve
CPT/HCPCS: 85610; 99211; G0463

== ENCOUNTER 2021-03-09 14:27 | Outpatient (CLI) | payer BC, SELFPAY ==
[2021-03-09 15:57] LABS: PHA INR Fingerstick 2.9 (0.9-1.1)
== END 2021-03-09 15:58 | disposition home or self-care (01) ==
LOC: ACC 14:28
PROVIDERS: PCP Family Medicine; Visit Provider Family Medicine
DX: Z51.81 Encounter for therapeutic drug level monitoring (principal); Z79.01 Long term (current) use of anticoagulants; I48.91 Unspecified atrial fibrillation; Q24.5 Malformation of coronary vessels; Z95.2 Presence of prosthetic heart valve
CPT/HCPCS: 85610; 99211; G0463

== ENCOUNTER 2021-03-10 16:12 | Emergency (ER) | payer BC, SELFPAY ==
[2021-03-10 16:28] VITALS: BP 120/69; PULSE 81; RESP 16; TEMP 37.1; O2SAT 98; BMI 15.7
[2021-03-10 16:42] LABS: Apearance,Urine Cloudy (Clear); Color,Urine Amber (Yellow); Protein,Urine 1+ (Negative); Specific Gravity, Urine 1.025 (1.005-1.030)
[2021-03-10 16:43] LABS: Bilirubin,Urine 1+ (Negative); Blood, Urine 2+ (Negative); Glucose,Urine (UA) Negative (Negative); Ketones,Urine Negative (Negative); UTC Leukocyte Esterase,Urine 1+ (Negative); UTC Nitrate,Urine Negative (Negative); UTC Pregnancy Test, Urine Negative (Negative); UTC Strep Screen (Rapid) Negative (Negative); Urobilinogen,Urine 0.2 EU/dl (0.2)
--- NOTE | 2021-03-10 16:44 | HMH.EDUTC ---
[facility] [place] Clinical Impression: UTI (urinary tract infection) Qualifiers: Urinary tract infection type: site unspecified Hematuria presence: with hematuria Qualified Code(s): N39.0 - Urinary tract infection, site not specified Pharyngitis Qualifiers: Pharyngitis/tonsillitis etiology: unspecified etiology Qualified Code(s): J02.9 - Acute pharyngitis, unspecified Disposition: Home, Self-Care Condition on Discharge: Good Instructions: DI for Pharyngitis/Tonsillopharyngitis -- Adult, DI for Urinary Tract Infection (UTI) Additional Instructions: Drink plenty of fluids. Take tylenol or ibuprofen for pain or fever. Take the medications as directed. Follow up with your regular doctor. GO TO THE ER FOR ANY WORSENING SYMPTOMS Quarantine until you know the results of your covid-19 test. If it is positive, the health department should call you and give you further instructions about your length of Quarantine and other things. Notify your school or workplace of your results and follow their instructions regarding return to work/school. The pyridium will make your urine turn orange, this is an expected side effect. It will stain your clothes if it comes into contact with them. Prescriptions: Cefdinir [Omnicef 300mg Capsule] 300 mg PO BID #20 cap Transmission Status: Received by [id number] Phenazopyridine HCl [Pyridium 200mg Tablet] 200 pow PO TID #6 tab Transmission Status: Received by [id number] Referrals: Brian Narayan MD [Primary Care Provider] - Forms: Work/School Release Time of Disposition: 17:06 Medical Decision Making - Medical Records Medical records reviewed: No: I reviewed the patient's medical records. - Carlos Inquiry Pt receiving controlled substance: No Vital Signs: 03/10/21 16:28 03/10/21 17:10 Temperature 98.8 F 98.8 F Temperature Source Oral Pulse Rate 81 Pulse Rate [Left] 81 Respiratory Rate 16 16 Blood Pressure 120/69 Blood Pressure [Right Arm] 120/69 Blood Pressure Mean [Right Arm] 86 02 Sat by Pulse Oximetry 98 - Lab Data Lab results reviewed: Yes: I reviewed the patient's lab results. Lab Results 03/10/21 16:39: Strep Scn Rapid Clinic Negative 03/10/21 16:39: Urine Color Clarice, Urine Appearance Cloudy, Urine pH 6.0, Ur Specific [place] 1.025, Urine Protein 1+, Urine Glucose (UA) Negative, Urine Ketones Negative, Urine Blood 2+, Urine Nitrate Negative, Urine Bilirubin 1+ A, Urine Urobilinogen 0.2, Ur Leukocyte Esterase 1+ A, Tst Clinic Negative Orders (Tests/Meds): ORDERS Category Date Time Status Covid-19 Nasal PCR ([facility]) Routine Lab 03/10/21 17:07 Received Strep Screen Confirmation Routine Micro 03/10/21 16:39 Received Urine Culture Stat Micro 03/10/21 16:26 Received [facility] HPI - General Stated complaint: UTI Time Seen by Provider: 03/10/21 16:44 Mode of Arrival: Ambulatory Source of Information: Patient Limitations: No Limitations Description of Symptoms (Recalled from Triage Doc. by RN): pt c/o burning with urination x2 wks. pt c/o sore throat and body aches since yesterday. HEENT Symptoms (Recalled from RN notes): Yes (sore throat) Resp Symptoms (Recalled from RN notes): No Skin Symptoms (Recalled from RN notes): No MS Symptoms (Recalled from RN notes): No Functional Status (Recalled from RN notes): body aches - History of Present Illness Provider Complaint: She states that she has been having low back pain and burning while urinating for the past 2 days. She also has a sore throat. She denies fever and chills. - Related Data Home Medications Medication Instructions Recorded Confirmed Warfarin Sodium 1 mg PO MOWEFR 12/18/19 11/19/20 Warfarin Sodium 6 mg PO DAILY 03/17/20 11/19/20 Previous Rx's Medication Instructions Recorded cephalexin 500 mg capsule 500 mg PO BID 10 Days #20 cap 11/19/20 fluconazole 150 mg tablet 150 mg PO Q3D 0 Days #2 tab 11/19/20 Cefdinir [Omnicef 300mg
[2021-03-10 17:10] VITALS: BP 120/69; PULSE 81; RESP 16; TEMP 37.1
== END 2021-03-10 17:16 | disposition home or self-care (01) ==
PROVIDERS: Emergency Provider Nurse Practitioner Family; PCP Family Medicine
DX: N30.00 Acute cystitis without hematuria (principal); J02.9 Acute pharyngitis, unspecified; Z95.0 Presence of cardiac pacemaker
CPT/HCPCS: 81003; 81025; 87086; 87880; 99203; C9803; G0463; U0003; U0005

== ENCOUNTER → 2021-03-25 17:00 | Outpatient (CLI) | payer BC, SELFPAY | PROVIDERS: Visit Provider Nurse Practitioner Family | DX: N39.0 Urinary tract infection, site not specified (principal) | CPT/HCPCS: 87086 ==

== ENCOUNTER → 2021-03-30 15:27 | Outpatient (CLI) | payer BC, SELFPAY ==
[2021-03-30 19:17] LABS: INR 6.34 (0.9-1.1); Prothrombin Time 62.5 seconds (10.1-12.5)
--- NOTE | 2021-03-31 11:42 | HMH.PHAINT ---
WARFARIN 4.5 MG ON SUN/TUE/TUE/RADHA/SAT, 3 MG ON TUE/TUE. PATIENT HAS BEEN TAKING WARFARIN 3 MG ON TUE/TUE; 6 MG ON TUE/TUE/TUE/TUE/SAT. DOSE HAD BEEN CHANGED AT LAST VISIT.
== END ==
PROVIDERS: PCP Family Medicine; Visit Provider Family Medicine
DX: Z51.81 Encounter for therapeutic drug level monitoring (principal); Z79.01 Long term (current) use of anticoagulants; I48.91 Unspecified atrial fibrillation; Q24.5 Malformation of coronary vessels; Z95.2 Presence of prosthetic heart valve
CPT/HCPCS: 36415; 85610

== ENCOUNTER → 2021-04-01 15:06 | Outpatient (CLI) | payer BC, SELFPAY | PROVIDERS: Visit Provider Nurse Practitioner Family | DX: N39.0 Urinary tract infection, site not specified (principal) | CPT/HCPCS: 87086 ==

== ENCOUNTER → 2021-04-07 17:32 | Outpatient (CLI) | payer BC, SELFPAY | PROVIDERS: PCP Family Medicine; Visit Provider Nurse Practitioner Family | DX: U07.1 COVID-19 (principal) | CPT/HCPCS: C9803; U0003; U0005 ==

== ENCOUNTER 2021-04-10 10:54 | Outpatient (CLI) | payer BC, SELFPAY ==
[2021-04-10] VITALS (8 sets, daily range): BP systolic 101–111; BP diastolic 63–79; PULSE 60–76; RESP 16–18; TEMP 36.7–37.1; O2SAT 96–99
[2021-04-10 12:13] LABS: INR 4.11 (0.9-1.1); Prothrombin Time 41.8 seconds (10.1-12.5)
== END 2021-04-10 13:22 | disposition home or self-care (01) ==
LOC: INF 10:54
PROVIDERS: PCP Family Medicine; Visit Provider Family Medicine
DX: U07.1 COVID-19 (principal); Z23 Encounter for immunization; I48.91 Unspecified atrial fibrillation; Q24.5 Malformation of coronary vessels; Z95.2 Presence of prosthetic heart valve; R79.1 Abnormal coagulation profile
CPT/HCPCS: 85610; 96365

== ENCOUNTER → 2021-04-16 16:27 | Outpatient (CLI) | payer BC, SELFPAY | PROVIDERS: Visit Provider Nurse Practitioner | DX: U07.1 COVID-19 (principal) | CPT/HCPCS: C9803; U0003; U0005 ==

== ENCOUNTER 2021-05-04 15:30 | Outpatient (CLI) | payer BC, SELFPAY ==
[2021-05-04 15:50] LABS: PHA INR Fingerstick 1.8 (0.9-1.1)
== END 2021-05-04 15:52 | disposition home or self-care (01) ==
LOC: ACC 15:30
PROVIDERS: Family Medicine; PCP Emergency Medicine; Visit Provider Emergency Medicine
DX: Z51.81 Encounter for therapeutic drug level monitoring (principal); Z79.01 Long term (current) use of anticoagulants; I48.91 Unspecified atrial fibrillation; Q24.5 Malformation of coronary vessels; Z95.2 Presence of prosthetic heart valve
CPT/HCPCS: 85610; 99211; G0463

== ENCOUNTER 2021-05-14 14:17 | Outpatient (CLI) | payer BC, SELFPAY ==
[2021-05-14 15:13] LABS: PHA INR Fingerstick 1.8 (0.9-1.1)
== END 2021-05-14 15:20 | disposition home or self-care (01) ==
PROVIDERS: PCP Family Medicine; Visit Provider Family Medicine
DX: Z51.81 Encounter for therapeutic drug level monitoring (principal); Z79.01 Long term (current) use of anticoagulants; I48.91 Unspecified atrial fibrillation; Q24.5 Malformation of coronary vessels; Z95.2 Presence of prosthetic heart valve
CPT/HCPCS: 85610; 99211; G0463

== ENCOUNTER 2021-05-26 11:50 | Outpatient (CLI) | payer BC, SELFPAY ==
[2021-05-26 15:51] LABS: PHA INR Fingerstick 1.5 (0.9-1.1)
== END 2021-05-26 15:52 | disposition home or self-care (01) ==
LOC: ACC 11:51
PROVIDERS: PCP Family Medicine; Visit Provider Family Medicine
DX: Z51.81 Encounter for therapeutic drug level monitoring (principal); Z79.01 Long term (current) use of anticoagulants; I48.91 Unspecified atrial fibrillation; Q24.5 Malformation of coronary vessels; Z95.2 Presence of prosthetic heart valve
CPT/HCPCS: 85610; 99211; G0463

== ENCOUNTER 2021-06-03 13:25 | Outpatient (CLI) | payer BC, SELFPAY ==
[2021-06-03 14:38] LABS: PHA INR Fingerstick 2.5 (0.9-1.1)
== END 2021-06-03 14:41 | disposition home or self-care (01) ==
LOC: ACC 13:25
PROVIDERS: PCP Family Medicine; Visit Provider Family Medicine
DX: Z51.81 Encounter for therapeutic drug level monitoring (principal); Z79.01 Long term (current) use of anticoagulants; I48.91 Unspecified atrial fibrillation; Q24.5 Malformation of coronary vessels; Z95.2 Presence of prosthetic heart valve
CPT/HCPCS: 85610; 99211; G0463

== ENCOUNTER 2021-06-10 13:11 | Outpatient (CLI) | payer BC, SELFPAY ==
[2021-06-10 13:32] LABS: PHA INR Fingerstick 2.4 (0.9-1.1)
== END 2021-06-10 13:35 | disposition home or self-care (01) ==
LOC: ACC 13:12
PROVIDERS: PCP Family Medicine; Visit Provider Family Medicine
DX: Z51.81 Encounter for therapeutic drug level monitoring (principal); Z79.01 Long term (current) use of anticoagulants; I48.91 Unspecified atrial fibrillation; Q24.5 Malformation of coronary vessels; Z95.2 Presence of prosthetic heart valve
CPT/HCPCS: 85610; 99211; G0463

== ENCOUNTER 2021-06-24 11:14 | Outpatient (CLI) | payer BC, SELFPAY ==
[2021-06-24 12:43] LABS: PHA INR Fingerstick 4.3 (0.9-1.1)
[2021-06-24 14:58] LABS: INR 5.12 (0.9-1.1); Prothrombin Time 51.3 seconds (10.1-12.5)
== END 2021-06-24 13:56 | disposition home or self-care (01) ==
PROVIDERS: PCP Family Medicine; Visit Provider Family Medicine
DX: Z51.81 Encounter for therapeutic drug level monitoring (principal); Z79.01 Long term (current) use of anticoagulants; I48.91 Unspecified atrial fibrillation; Q24.5 Malformation of coronary vessels; Z95.2 Presence of prosthetic heart valve
CPT/HCPCS: 36415; 85610; 99211; G0463

== ENCOUNTER 2021-08-25 12:40 | Outpatient (CLI) | payer BC, SELFPAY | END 2021-08-25 15:32 | disposition home or self-care (01) | LOC: ACC 12:41 | PROVIDERS: PCP Family Medicine; Visit Provider Family Medicine | DX: Z51.81 Encounter for therapeutic drug level monitoring (principal); Z79.01 Long term (current) use of anticoagulants; Q24.5 Malformation of coronary vessels; I48.91 Unspecified atrial fibrillation; Z95.2 Presence of prosthetic heart valve | CPT/HCPCS: 85610; 99211; G0463 ==

== ENCOUNTER 2021-10-30 12:11 | Emergency (ER) | payer BC, SELFPAY ==
[2021-10-30 13:10] VITALS: BP 115/74; PULSE 86; RESP 20; TEMP 37; O2SAT 96; BMI 20.7
--- NOTE | 2021-10-30 13:27 | HMH.EDUTC ---
[facility] [place] Clinical Impression: UTI (urinary tract infection) Qualifiers: Urinary tract infection type: site unspecified Hematuria presence: with hematuria Qualified Code(s): N39.0 - Urinary tract infection, site not specified Disposition: Home, Self-Care Condition on Discharge: Good Instructions: Urinary Tract Infection, DI for Urinary Tract Infection (UTI), Nitrofurantoin Additional Instructions: *Increase fluids. Water not Soda or Tea *Start antibiotic immediately and be sure to take as ordered for the FULL length of time although you should start to see improvement over the next 48 hours *Pyridium as needed Remember this medication will turn your urine Crane. This is normal but it will stain what ever it gets on *You should not use Pyridium for more than 48 hours. If so , follow up with your primary physician to review urine culture and ensure that antibiotic is adequate for infection *Be SURE to follow up anytime for new or worsening symptoms with your family doctor. AND in 48 hours for urine culture results with your family doctor, if you do not have a doctor then you may call back to the [facility] for urine culture results and further treatment. We do recommend that you choose and establish care with a Primary Care Physician. AND follow up with them in 10-14 days to repeat UA to ensure infection is resolved and blood no longer present *Be sure to let your PCP know that we sent urine cultures from the [facility] so they can follow up to ensure that you area the on the correct antibiotic Call your doctor office and make appointment for 48 hours (2 days from today) to follow up and get the results of your urine culture and further treatment Prescriptions: Nitrofurantoin Monohyd/M-Cryst [Macrobid 100 mg Capsule] 100 mg PO BID 7 Days #14 cap Transmission Status: Received by [id number] Phenazopyridine HCl [Pyridium 200mg Tablet] 200 pow PO TID #6 tab Transmission Status: Received by [id number] Referrals: Brian Narayan MD [Primary Care Provider] - As needed Time of Disposition: 13:51 Medical Decision Making - Carlos Inquiry Pt receiving controlled substance: No Carlos was queried for this patient: No Vital Signs: 10/30/21 13:10 10/30/21 13:44 Temperature 98.6 F 98.6 F Temperature Source Oral Pulse Rate 86 Pulse Rate [Left Brachial] 86 Respiratory Rate 20 20 Blood Pressure 115/74 Blood Pressure [Left Arm] 115/74 Blood Pressure Mean [Left Arm] 87 Blood Pressure Source [Left Arm] Automatic Cuff Blood Pressure Position [Left Arm] Sitting 02 Sat by Pulse Oximetry 96 Oxygen Delivery Method Room Air - Lab Data Lab results reviewed: Yes: I reviewed the patient's lab results. Lab Results 10/30/21 13:10: Urine Color Dark yellow, Urine Appearance Clear, Urine pH 7.0, Ur Specific [place] 1.015, Urine Protein Negative, Urine Glucose (UA) Negative, Urine Ketones Negative, Urine Blood Trace, Urine Nitrate Positive A, Urine Bilirubin Negative, Urine Urobilinogen 0.2, Ur Leukocyte Esterase Trace Orders (Tests/Meds): ED MEDICATIONS Discontinued Medications Generic Name Dose Route Start Last Admin Trade Name Ezq PRN Reason Stop Dose Admin Ceftriaxone Sodium 1 gm 10/30/21 13:30 10/30/21 13:40 Ceftriaxone 1gm Vial IM 10/30/21 13:31 1 gm ONCE ONE Administration Lidocaine HCl 0 ml 10/30/21 13:30 10/30/21 13:40 Lidocaine 1% 5ml Pf Vial IM 10/30/21 13:31 2 ml ONCE ONE Administration ORDERS Category Date Time Status Urine Culture Stat Micro 10/30/21 13:25 Ordered [facility] [place] HPI - General Stated complaint: possible uti Time Seen by Provider: 10/30/21 13:27 Mode of Arrival: Ambulatory Source of Information: Patient Limitations: No Limitations Description of Symptoms (Recalled from Triage Doc. by RN): PATIENT C/O BURNING AND FREQUENCY WITH URINATION X 3 DAYS HEENT Symptoms (Recalled from RN notes): No Resp Symptoms (Recalled from RN notes): No Skin Symptoms
[2021-10-30 13:30] LABS: Apearance,Urine Clear (Clear); Bilirubin,Urine Negative (Negative); Blood, Urine Trace (Negative); Color,Urine Dark Yellow (Yellow); Glucose,Urine (UA) Negative (Negative); Ketones,Urine Negative (Negative); Protein,Urine Negative (Negative); Specific Gravity, Urine 1.015 (1.005-1.030); UTC Leukocyte Esterase,Urine Trace (Negative); UTC Nitrate,Urine Positive (Negative); Urobilinogen,Urine 0.2 EU/dl (0.2)
[2021-10-30 13:44] VITALS: BP 115/74; PULSE 86; RESP 20; TEMP 37; O2SAT 96
== END 2021-10-30 13:51 | disposition home or self-care (01) ==
PROVIDERS: Emergency Provider Nurse Practitioner; PCP Family Medicine
DX: N39.0 Urinary tract infection, site not specified (principal); H91.90 Unspecified hearing loss, unspecified ear; Z79.01 Long term (current) use of anticoagulants; Z95.0 Presence of cardiac pacemaker
CPT/HCPCS: 81003; 87086; 87088; 87186; 96372; 99213; G0463; J0696

== ENCOUNTER 2021-12-29 13:32 | Emergency (ER) | payer BC, SELFPAY ==
[2021-12-29 14:41] VITALS: BP 117/75; PULSE 70; RESP 18; TEMP 37.1; O2SAT 99; BMI 22.6
--- NOTE | 2021-12-29 15:02 | EXP.UTC ---
Discharge Plan Disposition Patient Disposition: Home, Self-Care Condition: Good Prescriptions Prescriptions: New benzonatate [benzonatate] 100 mg capsule 100 mg PO TIDP PRN (Reason: Cough) Qty: 30 0RF No Action phenazopyridine 200 MG tablet 200 pow PO TID Qty: 6 0RF nitrofurantoin monohyd/m-cryst 100 MG capsule 100 mg PO BID 7 Days Qty: 14 0RF warfarin 6 mg tablet 6 mg PO SUTUWETHFRSA warfarin 6 MG tablet 3 mg PO MO Referrals Follow up/Referrals: Brian Narayan MD [Primary Care Provider] - See instructions Activity Restrictions/Add. Instructions Additional Instructions/Restrictions: Drink plenty of fluids. Take tylenol for pain or fever. Return if you begin to have difficulty breathing. Follow up with your regular doctor. GO TO THE ER FOR ANY WORSENING SYMPTOMS Quarantine until you know the results of your covid-19 test. Notify your school or workplace of your results and follow their instructions regarding return to work/school. Clinical Impressions Clinical Impression: Acute viral syndrome Stand Alone Forms Stand Alone Forms: Work/School Release Instructions Patient Instructions: Coronavirus Disease 2019, Preventing the Spread of Coronavirus Discharge Instructions Discharge ED Provider: Evin Moran [facility] General Stated complaint: Scratchy throat, covid test Mode of Arrival: Ambulatory Source of Information: Patient Limitations: No Limitations Time Seen by Provider: 12/29/21 15:01 Description of Symptoms (Recalled from Triage Doc. by RN): patient comes in for covid test. pt was exposed by grandfather. only symptom is scratchy throat and cough. HEENT Symptoms (Recalled from RN notes): Yes Resp Symptoms (Recalled from RN notes): Yes Skin Symptoms (Recalled from RN notes): No MS Symptoms (Recalled from RN notes): No Functional Status (Recalled from RN notes): n/a History of Present Illness Provider Complaint: She states that for the past 1 day she has had low grade fever and chills. She has been exposed to covid-19 Related Data Home Medications Medication Instructions Recorded Confirmed warfarin 6 mg tablet 6 mg PO SUTUWETHFRSA Blood thinner 04/02/21 07/14/21 warfarin 6 mg tablet 3 mg PO MO Blood thinner 06/24/21 07/14/21 Previous Rx's Medication Instructions Recorded nitrofurantoin 100 mg PO BID 7 days #14 caps 07/08/22 monohydrate/macrocrystals 100 mg capsule phenazopyridine 200 mg tablet 200 pow PO TID #6 tabs 10/30/21 benzonatate 100 mg capsule 100 mg PO TIDP PRN Cough #30 caps 12/29/21 Allergies Allergy/AdvReac Type Severity Reaction Status Date / Time No Known Allergies Allergy Verified 12/29/21 14:46 Worker's Comp Is this a Worker's Comp case?: No PFSH PFSH Social History Smoking Status: Never smoker alcohol intake: never current occupational status: other Travel in the last 8 weeks: None household members: spouse housing: house ROS Obtained: Yes All systems reviewed & no additional complaints except as documented Constitutional Constitutional: Reports system reviewed and no additional complaints, except as documented, Denies chills and Denies fever(s) Eyes Eyes: Denies eye discharge ENT Ears, Nose, Mouth, and Throat: Denies dysphagia, Denies sore throat and Denies throat swelling Cardiovascular Cardiovascular: Denies chest pain and Denies dyspnea Respiratory Respiratory: Denies chest congestion, Denies cough and Denies dyspnea Gastrointestinal Gastrointestingal: Denies abdominal pain, constipation, diarrhea, dysphagia, nausea or vomiting Musculoskeletal Musculoskeletal: Denies arthralgias Integumentary/Breasts Skin/Breast: Denies rash Neurologic Neurologic: Denies paresthesias Allergic/Immunologic Allergic/Immunologic: Denies throat swelling Physical Exam General General appearance: alert and in no apparent distress Head Head exam: atra
[2021-12-29 15:14] VITALS: BP 117/75; PULSE 70; RESP 18; TEMP 37.1
== END 2021-12-29 15:21 | disposition home or self-care (01) ==
PROVIDERS: Emergency Provider Nurse Practitioner Family; PCP Family Medicine
DX: B34.9 Viral infection, unspecified (principal); R05.9 Cough, unspecified; Z79.01 Long term (current) use of anticoagulants; Z79.899 Other long term (current) drug therapy; Z20.822 Contact with and (suspected) exposure to COVID-19
CPT/HCPCS: 99213; C9803; G0463; U0003; U0005

== ENCOUNTER 2022-03-05 13:24 | Outpatient (CLI) | payer BC, SELFPAY ==
[2022-03-05 15:06] LABS: PHA INR Fingerstick 3.9 (0.9-1.1)
== END 2022-03-05 15:42 ==
LOC: ACC 13:25
PROVIDERS: PCP Family Medicine; Visit Provider Family Medicine
DX: Z51.81 Encounter for therapeutic drug level monitoring (principal); Z79.01 Long term (current) use of anticoagulants; I48.91 Unspecified atrial fibrillation; Q24.5 Malformation of coronary vessels; Z95.2 Presence of prosthetic heart valve
CPT/HCPCS: 85610; 99211; G0463

== ENCOUNTER 2022-04-01 08:17 | Emergency (ER) | payer BC, SELFPAY ==
--- NOTE | 2022-04-01 09:06 | EXP.UTC ---
Discharge Plan Disposition Patient Disposition: Home, Self-Care Condition: Good Prescriptions Prescriptions: New mtifkdbiyyfdvyv-bkstfggnw-IV [Bromfed DM] 2-30-10 mg/5 mL Syrup 5 ml PO Q6H PRN (Reason: Cough) Qty: 240 0RF ondansetron 4 mg Tablet,Disintegrating 4 mg PO Q8H PRN (Reason: Nausea) Qty: 12 0RF No Action warfarin 6 mg tablet See Rx Instructions .ROUTE .COMPLEX Qty: 30 0RF Dose Instruction: TAKE 1 TABLET BY MOUTH ONCE DAILY DIRECTED Rx Instructions: TAKE 1 TABLET BY MOUTH ONCE DAILY DIRECTED phenazopyridine 200 MG tablet 200 pow PO TID Qty: 6 0RF nitrofurantoin monohyd/m-cryst 100 MG capsule 100 mg PO BID 7 Days Qty: 14 0RF warfarin 6 mg tablet 6 mg PO SUTUWETHFRSA benzonatate [benzonatate] 100 mg capsule 100 mg PO TIDP PRN (Reason: Cough) Qty: 30 0RF Referrals Follow up/Referrals: Brian Narayan MD [Primary Care Provider] - See instructions Activity Restrictions/Add. Instructions Additional Instructions/Restrictions: Drink plenty of fluids. Take tylenol or ibuprofen for pain or fever. Take the medications as directed. Follow up with your regular doctor. GO TO THE ER FOR ANY WORSENING SYMPTOMS Clinical Impressions Clinical Impression: Acute viral syndrome, Exposure to 2019 novel coronavirus Instructions Patient Instructions: Coronavirus Disease 2019, Preventing the Spread of Coronavirus Discharge Instructions Discharge ED Provider: Evin Moran [facility] General Stated complaint: Cough,Sore throat Time Seen by Provider: 04/01/22 09:06 History of Present Illness Provider Complaint: She states that for the past 2 days she has had cough, sore throat and malaise. Related Data Home Medications Medication Instructions Recorded Confirmed warfarin 6 mg tablet 6 mg PO SUTUWETHFRSA Blood thinner 04/02/21 07/14/21 Previous Rx's Medication Instructions Recorded nitrofurantoin 100 mg PO BID 7 days #14 caps 10/30/21 monohydrate/macrocrystals 100 mg capsule phenazopyridine 200 mg tablet 200 pow PO TID #6 tabs 10/30/21 benzonatate 100 mg capsule 100 mg PO TIDP PRN Cough #30 caps 12/29/21 warfarin 6 mg tablet See Rx Instructions .Route 02/01/22 .COMPLEX #30 tabs twinlkafqqfpbrt-oyyamshifiikijc-DC 5 ml PO Q6H PRN Cough #240 mL 04/01/22 2 mg-30 mg-10 mg/5 mL oral syrup (Bromfed DM) ondansetron 4 mg disintegrating 4 mg PO Q8H PRN Nausea #12 tabs 04/01/22 tablet Allergies Allergy/AdvReac Type Severity Reaction Status Date / Time No Known Allergies Allergy Verified 04/01/22 09:31 [facility] Disclaimer: The information contained in this section may have been updated after the patient was seen, as this information can be updated by other users. Social History Smoking Status: Never smoker alcohol intake: never current occupational status: other Travel in the last 8 weeks: None household members: spouse housing: house ROS Obtained: Yes All systems reviewed & no additional complaints except as documented Constitutional Constitutional: Reports chills and Reports fever(s) Eyes Eyes: Denies eye discharge ENT Ears, Nose, Mouth, and Throat: Reports as per HPI Cardiovascular Cardiovascular: Denies chest pain Respiratory Respiratory: Denies chest congestion and Reports cough Gastrointestinal Gastrointestingal: Reports nausea; Denies abdominal pain, constipation, cramping, diarrhea or vomiting Musculoskeletal Musculoskeletal: Denies arthralgias Integumentary/Breasts Skin/Breast: Denies rash Neurologic Neurologic: Denies paresthesias Physical Exam General General appearance: alert and in no apparent distress Head Head exam: atraumatic, normocephalic and normal inspection Eye Eye exam: Present normal appearance, PERRL and EOMI ENT ENT exam: Present normal exam, normal oropharynx, mucous membranes moist, TM's normal bilaterally and normal exte
[2022-04-01 09:27] VITALS: BP 115/72; PULSE 75; RESP 16; TEMP 37.1; O2SAT 100; BMI 22.9
[2022-04-01 09:28] LABS: Adenovirus,PCR Not Detected (NotDetected); Bordetella Pertussis Not Detected (NotDetected); Chlamydophila Pneumoniae, PCR Not Detected (NotDetected); Coronavirus 19, PCR Not Detected (NotDetected); Coronavirus 229E Not Detected (NotDetected); Coronavirus NL63 Not Detected (NotDetected); Coronavirus OC43 Not Detected (NotDetected); Coronovirus HKU1,PCR Not Detected (NotDetected); Human Metapneumovirus Not Detected (NotDetected); Influenza A, PCR Not Detected (NotDetected); Influenza AH1, 2009 Not Detected (NotDetected); Influenza AH1, PCR Not Detected (NotDetected); Influenza AH3,PCR Not Detected (NotDetected); Influenza B, PCR Not Detected (NotDetected); Mycoplasma Pneumoniae, PCR Not Detected (NotDetected); Parainfluenza 1, PCR Not Detected (NotDetected); Parainfluenza 2, PCR Not Detected (NotDetected); Parainfluenza 3, PCR Not Detected (NotDetected); Parainfluenza 4, PCR Not Detected (NotDetected); Respiratory Syncytial Virus Not Detected (NotDetected); Rhinovirus/Enterovirus Not Detected (NotDetected)
[2022-04-01 09:45] VITALS: BP 115/72; PULSE 75; RESP 16; TEMP 37.1
== END 2022-04-01 09:52 | disposition home or self-care (01) ==
PROVIDERS: Emergency Provider Nurse Practitioner Family; PCP Family Medicine
DX: J02.9 Acute pharyngitis, unspecified (principal); R53.81 Other malaise; R50.9 Fever, unspecified; R05.9 Cough, unspecified; R11.0 Nausea; Z20.822 Contact with and (suspected) exposure to COVID-19; Z79.01 Long term (current) use of anticoagulants; Z79.52 Long term (current) use of systemic steroids
CPT/HCPCS: 87581; 87632; 87798; 99213; C9803; G0463; U0003; U0005

== ENCOUNTER 2022-04-26 11:49 | Emergency (ER) | payer BC, SELFPAY ==
[2022-04-26 13:25] VITALS: BP 125/77; PULSE 84; RESP 18; TEMP 36.8; O2SAT 99; BMI 19.3
[2022-04-26 13:38] VITALS: BP 125/77; PULSE 84; RESP 18; TEMP 36.8; O2SAT 99
--- NOTE | 2022-04-26 13:41 | EXP.UTC ---
Discharge Plan Disposition Patient Disposition: Home, Self-Care Condition: Good Prescriptions Prescriptions: New phenazopyridine [Pyridium] 200 mg tablet 200 mg PO Q8H 2 Days Qty: 6 0RF nitrofurantoin monohyd/m-cryst [Macrobid] 100 mg capsule 100 mg PO Q12H 7 Days Qty: 14 0RF Rx Instructions: must administer with a meal/food No Action warfarin 6 mg tablet 6 mg PO DIRECTED Rx Instructions: 6 MG M//, 3 MG S/S/T/ Referrals Follow up/Referrals: Brian Narayan MD [Primary Care Provider] - See instructions Activity Restrictions/Add. Instructions Additional Instructions/Restrictions: Make sure to let the [facility] Clinic know you are on antibiotics they have to monitor your levels and adjust your levels Take medication as prescribe *Increase fluids. Water not Soda or Tea *Start antibiotic immediately and be sure to take as ordered for the FULL length of time although you should start to see improvement over the next 48 hours *Pyridium as needed Remember this medication will turn your urine . This is normal but it will stain what ever it gets on *You should not use Pyridium for more than 48 hours. If so , follow up with your primary physician to review urine culture and ensure that antibiotic is adequate for infection *Be SURE to follow up anytime for new or worsening symptoms with your family doctor. AND in 48 hours for urine culture results with your family doctor, if you do not have a doctor then you may call back to the [facility] for urine culture results and further treatment. We do recommend that you choose and establish care with a Primary Care Physician. ?AND follow up with them ?in 10-14 days to repeat UA to ensure infection is resolved and blood no longer present *Be sure to let your PCP know that we sent urine cultures from the [facility] so they can follow up to ensure that you area the on the correct antibiotic Call your doctor office and make appointment for 48 hours (2 days from today) ?to follow up and get the results of your urine culture and further treatment Clinical Impressions Clinical Impression: UTI (urinary tract infection) Instructions Patient Instructions: DI for Urinary Tract Infection (UTI), Urinary Tract Infection Discharge ED Provider: Yocasta Crocker [facility] [place] General Stated complaint: Possible UTI Mode of Arrival: Ambulatory Source of Information: Patient Limitations: No Limitations Time Seen by Provider: 04/26/22 13:41 Description of Symptoms (Recalled from Triage Doc. by RN): PATIENT C/O FREQUENCY AND BURNING WITH URINATION SINCE YESTERDAY HEENT Symptoms (Recalled from RN notes): No Resp Symptoms (Recalled from RN notes): No Skin Symptoms (Recalled from RN notes): No MS Symptoms (Recalled from RN notes): No Functional Status (Recalled from RN notes): WNL History of Present Illness Provider Complaint: Patient is hearing impaired but can read lips and respond appropriately States that she has been having burning with urination since yesterday and only goes small amounts at a time Denies fever, chill, or abdominal pain Related Data Home Medications Medication Instructions Recorded Confirmed warfarin 6 mg tablet 6 mg PO DIRECTED Blood thinner 04/02/21 04/26/22 Previous Rx's Medication Instructions Recorded nitrofurantoin 100 mg PO Q12H 7 days #14 caps 04/26/22 monohydrate/macrocrystals 100 mg capsule (Macrobid) phenazopyridine 200 mg tablet 200 mg PO Q8H pain 2 days #6 tabs 04/26/22 (Pyridium) Allergies Allergy/AdvReac Type Severity Reaction Status Date / Time No Known Allergies Allergy Verified 04/09/22 10:57 Worker's Comp Is this a Worker's Comp case?: No [facility] Disclaimer: The information contained in this section may have been updated after the patient was seen, as this information can be updated by other users. Medical History (Updated 04/26/22 @ 13:55 by Yocasta Crocker APRN) Urinary tract infection Surgical History (Updated 0
[2022-04-26 13:45] LABS: Apearance,Urine Clear (Clear); Bilirubin,Urine Negative (Negative); Blood, Urine Trace (Negative); Color,Urine Dark Yellow (Yellow); Glucose,Urine (UA) Negative (Negative); Ketones,Urine Negative (Negative); PH,Urine 5.5 (5.0-8.5); Protein,Urine Negative (Negative); Specific Gravity, Urine 1.015 (1.005-1.030); Urobilinogen,Urine 0.2 EU/dl (0.2)
[2022-04-26 13:45] LABS: UTC Pregnancy Test, Urine Negative (Negative)
[2022-04-26 13:46] LABS: UTC Leukocyte Esterase,Urine Trace (Negative); UTC Nitrate,Urine Positive (Negative)
== END 2022-04-26 14:10 | disposition home or self-care (01) ==
PROVIDERS: Emergency Provider Nurse Practitioner; PCP Family Medicine
DX: N39.0 Urinary tract infection, site not specified (principal)
CPT/HCPCS: 81003; 81025; 87086; 87088; 87186; 99212; 99213; G0463

== ENCOUNTER 2022-04-27 15:31 | Emergency (ER) | payer BC, SELFPAY ==
[2022-04-27 17:45] VITALS: BMI 25.8
[2022-04-27 17:53] LABS: Coronavirus 19, PCR Not Detected (NotDetected); Influenza A, PCR Not Detected (NotDetected); Influenza B, PCR Not Detected (NotDetected)
--- NOTE | 2022-04-27 18:29 | PC.NURSE ---
1740 - Checked on patient in lobby. Took patient to triage room and checked vitals. Addressed any needs patient might have at the moment. Informed patient the ED was at max capacity and had no beds available at the moment, that patient would be brought back to the ED as soon as possible. Pt requesting to be seen in [facility], flu and covid swab obtained at this time. Pt agreeable at this time, and in stable condition.
[2022-04-27 18:50] VITALS: BP 107/75; PULSE 67; RESP 19; TEMP 37.1; O2SAT 99; BMI 23.2
--- NOTE | 2022-04-27 19:06 | EXP.UTC ---
Discharge Plan Disposition Patient Disposition: Home, Self-Care Condition: Good Prescriptions Prescriptions: New ondansetron 4 mg tablet,disintegrating 4 mg PO Q8H PRN (Reason: nausea and vomiting) Qty: 10 0RF cefdinir 300 mg capsule 300 mg PO BID Qty: 20 0RF No Action phenazopyridine [Pyridium] 200 mg tablet 200 mg PO Q8H 2 Days Qty: 6 0RF nitrofurantoin monohyd/m-cryst [Macrobid] 100 mg capsule 100 mg PO Q12H 7 Days Qty: 14 0RF Rx Instructions: must administer with a meal/food warfarin 6 mg tablet 6 mg PO DIRECTED Rx Instructions: 6 MG M/W/, 3 MG S/S/T/ Referrals Follow up/Referrals: Brian Narayan MD [Primary Care Provider] - See instructions Activity Restrictions/Add. Instructions Additional Instructions/Restrictions: Stop taking the macrobid (nitrofurantoin) and start the oral Cefdinir tomorrow Make sure to let the Warfarin clinic know about your medication You can check your results for the COVID test on the [facility]Info Health Portal Straight to ER if any life threatening symptoms Clinical Impressions Clinical Impression: Flu-like symptoms Discharge ED Provider: Gamaliel Guzman [facility] HPI General Stated complaint: Fever,Vomiting,Bodyaches Time Seen by Provider: 04/27/22 19:06 History of Present Illness Provider Complaint: Patient states that she was seen and treated yesterday for UTI States that she thinks the medication is making her sick States that she woke up with headache felt achy all over and had some N/V after taking it States that she is not sure but thinks she may have had a low grade fever Denies abdominal pain and denies pelvic pain States that she wants to get tested for Flu COVID and strep and get the medication changed Related Data Home Medications Medication Instructions Recorded Confirmed warfarin 6 mg tablet 6 mg PO DIRECTED Blood thinner 04/02/21 04/26/22 Previous Rx's Medication Instructions Recorded nitrofurantoin 100 mg PO Q12H 7 days #14 caps 04/26/22 monohydrate/macrocrystals 100 mg capsule (Macrobid) phenazopyridine 200 mg tablet 200 mg PO Q8H pain 2 days #6 tabs 04/26/22 (Pyridium) cefdinir 300 mg capsule 300 mg PO BID #20 caps 04/27/22 ondansetron 4 mg disintegrating 4 mg PO Q8H PRN nausea and 04/27/22 tablet vomiting #10 tabs Allergies Allergy/AdvReac Type Severity Reaction Status Date / Time No Known Allergies Allergy Verified 04/09/22 10:57 [facility] Disclaimer: The information contained in this section may have been updated after the patient was seen, as this information can be updated by other users. Medical History (Updated 04/27/22 @ 19:30 by Yocasta Crocker APRN) Urinary tract infection Surgical History (Updated 04/26/22 @ 13:36 by Shauna Hector RN) History of open heart surgery History of tubal ligation Social History (Updated 04/26/22 @ 13:36 by Shauna Hector RN) Smoking Status: Never smoker alcohol intake: never current occupational status: other Travel in the last 8 weeks: None household members: spouse housing: house ROS Obtained: Yes All systems reviewed & no additional complaints except as documented and Yes Systems reviewed as appropriate & no additional complaints except as documented Constitutional Constitutional: Reports system reviewed and no additional complaints, except as documented, Reports as per HPI, Reports body ache, Reports fever(s) and Reports headache(s) ENT Ears, Nose, Mouth, and Throat: Reports system reviewed and no additional complaints, except as documented, Reports as per HPI and Reports headache(s) Cardiovascular Cardiovascular: Reports system reviewed and no additional complaints, except as documented and Reports as per HPI Respiratory Respiratory: Reports system reviewed and no additional complaints, except as documented and Reports as per HPI Gastrointestinal Gastrointestingal: Reports system reviewed and no additional complaint
[2022-04-27 19:09] LABS: UTC Strep Screen (Rapid) Negative (Negative)
[2022-04-27 19:28] LABS: UTC Influenza A Antigen Negative (Negative)
[2022-04-27 19:29] LABS: UTC Influenza B Antigen Negative (Negative)
[2022-04-27 20:00] VITALS: BP 107/75; PULSE 67; RESP 19; TEMP 37.1; O2SAT 99
== END 2022-04-27 20:21 | disposition home or self-care (01) ==
PROVIDERS: Nurse Practitioner; Emergency Provider Emergency Medicine; PCP Family Medicine
DX: R50.9 Fever, unspecified (principal)
CPT/HCPCS: 87804; 87880; 96372; 99212; 99213; C9803; G0463; J0696; U0003; U0005

== ENCOUNTER → 2022-05-03 06:53 | Outpatient (CLI) | payer BC, SELFPAY | PROVIDERS: Visit Provider Nurse Practitioner Family | DX: B35.1 Tinea unguium (principal) | CPT/HCPCS: 87102; 87206; 87220 ==

== ENCOUNTER 2022-07-13 08:03 | Emergency (ER) | payer BC, SELFPAY ==
[2022-07-13 08:15] VITALS: BP 115/72; PULSE 73; RESP 20; TEMP 37.2; O2SAT 98; BMI 39.6
--- NOTE | 2022-07-13 08:28 | EXP.UTC ---
Discharge Plan Disposition Patient Disposition: Home, Self-Care Condition: Good Prescriptions Prescriptions: New amoxicillin [amoxicillin] 500 mg tablet 500 mg PO TID 10 Days Qty: 30 0RF oxohvhxlnulajsk-zfjudpaeu-TV [Bromfed DM] 2-30-10 mg/5 mL Syrup 5 ml PO Q6H PRN (Reason: Cough) Qty: 240 0RF No Action warfarin 6 mg tablet 6 mg PO DIRECTED Rx Instructions: 6 MG M//, 3 MG S/S// Referrals Follow up/Referrals: Brian Narayan MD [Primary Care Provider] - See instructions Activity Restrictions/Add. Instructions Additional Instructions/Restrictions: Drink plenty of fluids. Take tylenol or ibuprofen for pain or fever. Take the medications as directed. Follow up with your regular doctor. GO TO THE ER FOR ANY WORSENING SYMPTOMS Clinical Impressions Clinical Impression: Pharyngitis Stand Alone Forms Stand Alone Forms: Work/School Release Instructions Patient Instructions: Sore Throat, DI for Pharyngitis/Tonsillopharyngitis -- Adult Discharge ED Provider: Evin Moran [facility] General Stated complaint: Sore throat, congestion Time Seen by Provider: 07/13/22 08:20 History of Present Illness Provider Complaint: She states that for the past 2 days she has had sore throat, cough, chest congestion, and sinus congestion. Related Data Home Medications Medication Instructions Recorded Confirmed warfarin 6 mg tablet 6 mg PO DIRECTED Blood thinner 04/02/21 07/13/22 Previous Rx's Medication Instructions Recorded amoxicillin 500 mg tablet 500 mg PO TID 10 days #30 tabs 07/13/22 brlptphffzwuiur-cphjwgppuyskphb-QJ 5 ml PO Q6H PRN Cough #240 mL 07/13/22 2 mg-30 mg-10 mg/5 mL oral syrup (Bromfed DM) Allergies Allergy/AdvReac Type Severity Reaction Status Date / Time No Known Allergies Allergy Verified 07/13/22 08:43 [facility] Disclaimer: The information contained in this section may have been updated after the patient was seen, as this information can be updated by other users. Medical History Toenail fungus Urinary tract infection Surgical History History of open heart surgery History of tubal ligation Social History Smoking Status: Never smoker alcohol intake: never current occupational status: other Travel in the last 8 weeks: None household members: spouse housing: house ROS Obtained: Yes All systems reviewed & no additional complaints except as documented Constitutional Constitutional: Reports chills and Denies fever(s) Eyes Eyes: Denies eye discharge ENT Ears, Nose, Mouth, and Throat: Reports as per HPI Cardiovascular Cardiovascular: Denies chest pain Respiratory Respiratory: Denies chest congestion and Reports cough Gastrointestinal Gastrointestingal: Reports nausea; Denies abdominal pain, constipation, cramping, diarrhea or vomiting Musculoskeletal Musculoskeletal: Denies arthralgias Integumentary/Breasts Skin/Breast: Denies rash Neurologic Neurologic: Denies paresthesias Physical Exam General General appearance: alert and in no apparent distress Head Head exam: atraumatic, normocephalic and normal inspection Eye Eye exam: Present normal appearance, PERRL and EOMI ENT ENT exam: Present mucous membranes moist and normal external ear exam Expanded ENT Exam TM/Canal exam: Bilateral TM: erythema and bulging Nose exam: Absent sinus tenderness Mouth exam: Present normal external inspection; Absent drooling Teeth exam: Present normal inspection Throat exam: Present tonsillar erythema, tonsillomegaly and tonsillar exudate Neck Neck exam: Present normal inspection, full ROM and trachea midline; Absent tenderness, meningismus or lymphadenopathy Chest Chest inspection: Present normal inspection and symmetric chest wall rise; Absent tenderness Respiratory Respirator
[2022-07-13 08:36] LABS: UTC Strep Screen (Rapid) Negative (Negative)
[2022-07-13 09:58] VITALS: BP 115/72; PULSE 73; RESP 20; TEMP 37.2; O2SAT 98
== END 2022-07-13 09:58 | disposition home or self-care (01) ==
PROVIDERS: Emergency Provider Nurse Practitioner Family; PCP Family Medicine
DX: J02.9 Acute pharyngitis, unspecified (principal); R05.1 Acute cough; R09.81 Nasal congestion
CPT/HCPCS: 87880; 99212; 99214; G0463

== ENCOUNTER 2022-09-21 11:00 | Outpatient (CLI) | payer BC, SELFPAY ==
[2022-09-21 13:38] LABS: PHA INR Fingerstick 2.5 (0.9-1.1)
== END 2022-09-21 13:58 ==
LOC: ACC 11:01
PROVIDERS: PCP Family Medicine; Visit Provider Family Medicine
DX: Z51.81 Encounter for therapeutic drug level monitoring (principal); Z79.01 Long term (current) use of anticoagulants; Z95.2 Presence of prosthetic heart valve
CPT/HCPCS: 85610; 99211; G0463

== ENCOUNTER 2022-09-21 11:27 | Emergency (ER) | payer BC, SELFPAY ==
[2022-09-21 11:27] VITALS: BP 116/69; PULSE 81; RESP 16; TEMP 36.8; O2SAT 99; BMI 22.9
[2022-09-21 11:46] LABS: Apearance,Urine Clear (Clear); Blood, Urine 1+ (Negative); Color,Urine Dark Yellow (Yellow); Glucose,Urine (UA) Negative (Negative); Ketones,Urine Negative (Negative); Protein,Urine 3+ (Negative); Specific Gravity, Urine 1.025 (1.005-1.030)
[2022-09-21 11:47] LABS: Bilirubin,Urine Negative (Negative); UTC Leukocyte Esterase,Urine 1+ (Negative); UTC Nitrate,Urine Positive (Negative); Urobilinogen,Urine 1 EU/dl (0.2)
--- NOTE | 2022-09-21 11:47 | EXP.UTC ---
Discharge Plan Disposition Patient Disposition: Home, Self-Care Condition: Good Prescriptions Prescriptions: New nitrofurantoin monohyd/m-cryst [Macrobid] 100 mg Capsule 100 mg PO BID Qty: 10 0RF Rx Instructions: must administer with a meal/food phenazopyridine [Pyridium] 200 mg tablet 200 mg PO Q8H 2 Days Qty: 6 0RF No Action warfarin 6 mg tablet 6 mg PO DIRECTED Rx Instructions: 6 MG M//, 3 MG S/S// Referrals Follow up/Referrals: Brian Narayan MD [Primary Care Provider] - See instructions Activity Restrictions/Add. Instructions Additional Instructions/Restrictions: Drink plenty of fluids. Take tylenol or ibuprofen for pain or fever. Take the medications as directed. Follow up with your regular doctor. GO TO THE ER FOR ANY WORSENING SYMPTOMS The pyridium will make your urine turn orange, this is an expected side effect. It will stain your clothes if it comes into contact with them. We will culture the urine. That will tell what bacteria is causing your infection and which antibiotics will treat it best. Sometimes the first antibiotic we prescribe turns out to not work against different bacteria. So, make sure you follow up within 3 days if you are not getting better. Clinical Impressions Clinical Impression: UTI (urinary tract infection) Instructions Patient Instructions: Urine Culture, Phenazopyridine, DI for Urinary Tract Infection (UTI) Discharge ED Provider: Evin Moran [facility] [place] HPI General Stated complaint: Possible UTI Mode of Arrival: Ambulatory Source of Information: Patient Limitations: No Limitations Time Seen by Provider: 09/21/22 11:47 Description of Symptoms (Recalled from Triage Doc. by RN): pt presents to [facility] c/o burning and pressure with urination. pt denies any known fever. HEENT Symptoms (Recalled from RN notes): No Resp Symptoms (Recalled from RN notes): No Skin Symptoms (Recalled from RN notes): No MS Symptoms (Recalled from RN notes): No Functional Status (Recalled from RN notes): na History of Present Illness Provider Complaint: She states that for the past 2 days she has had low back pain, dysuria, lower abdominal pain and malaise. Related Data Home Medications Medication Instructions Recorded Confirmed warfarin 6 mg tablet 6 mg PO DIRECTED Blood thinner 04/02/21 08/02/22 Previous Rx's Medication Instructions Recorded nitrofurantoin 100 mg PO BID #10 caps 09/21/22 monohydrate/macrocrystals 100 mg capsule (Macrobid) phenazopyridine 200 mg tablet 200 mg PO Q8H 2 days #6 tabs 09/21/22 (Pyridium) Allergies Allergy/AdvReac Type Severity Reaction Status Date / Time No Known Allergies Allergy Verified 08/02/22 10:35 Worker's Comp Is this a Worker's Comp case?: No Is this an H Worker's Comp?: No Is this a [place] Worker's Comp?: No [facility] Disclaimer: The information contained in this section may have been updated after the patient was seen, as this information can be updated by other users. Medical History Toenail fungus Urinary tract infection Surgical History History of open heart surgery History of tubal ligation Social History Smoking Status: Never smoker alcohol intake: never current occupational status: other Travel in the last 8 weeks: None household members: spouse housing: house ROS Obtained: Yes All systems reviewed & no additional complaints except as documented Constitutional Constitutional: Reports system reviewed and no additional complaints, except as documented, Denies chills and Denies fever(s) Eyes Eyes: Denies eye discharge ENT Ears, Nose, Mouth, and Throat: Denies dysphagia, Denies sore throat and Denies throat swelling Cardiovascular Cardiovascular: Denies chest pain and Denies dyspnea Respirator
[2022-09-21 11:52] VITALS: BP 116/69; PULSE 81; RESP 16; TEMP 36.8; O2SAT 99
== END 2022-09-21 11:54 | disposition home or self-care (01) ==
PROVIDERS: Emergency Provider Nurse Practitioner Family; PCP Family Medicine
DX: N39.0 Urinary tract infection, site not specified (principal); M54.59 Other low back pain; R53.81 Other malaise
CPT/HCPCS: 81003; 87086; 99212; 99214; G0463

== ENCOUNTER 2022-09-30 12:34 | Emergency (ER) | payer BC, SELFPAY ==
[2022-09-30 12:34] VITALS: BP 140/71; PULSE 80; RESP 18; TEMP 36.8; O2SAT 99; BMI 22.9
--- NOTE | 2022-09-30 12:42 | EXP.UTC ---
Discharge Plan Disposition Patient Disposition: Home, Self-Care Condition: Good Prescriptions Prescriptions: New phenazopyridine 200 mg Tablet 200 mg PO TID 2 Days Qty: 6 0RF sulfamethoxazole-trimethoprim [Bactrim DS] 800-160 mg Tablet 1 tab PO BID Qty: 14 0RF ondansetron 4 mg Tablet,Disintegrating 4 mg PO Q8H PRN (Reason: Nausea) Qty: 12 0RF No Action nitrofurantoin monohyd/m-cryst [Macrobid] 100 mg Capsule 100 mg PO BID Qty: 10 0RF Rx Instructions: must administer with a meal/food phenazopyridine [Pyridium] 200 mg tablet 200 mg PO Q8H 2 Days Qty: 6 0RF warfarin 6 mg tablet 6 mg PO DIRECTED Rx Instructions: 6 MG //, 3 MG S/S// Referrals Follow up/Referrals: Brian Narayan MD [Primary Care Provider] - See instructions Activity Restrictions/Add. Instructions Additional Instructions/Restrictions: Drink plenty of fluids. Take tylenol or ibuprofen for pain or fever. Take the medications as directed. Follow up with your regular doctor. Make sure you are getting your pt/inr checked as you are supposed to. GO TO THE ER FOR ANY WORSENING SYMPTOMS The pyridium will make your urine turn orange, this is an expected side effect. It will stain your clothes if it comes into contact with them. We will culture the urine. That will tell what bacteria is causing your infection and which antibiotics will treat it best. Sometimes the first antibiotic we prescribe turns out to not work against different bacteria. So, make sure you follow up within 3 days if you are not getting better. Clinical Impressions Clinical Impression: UTI (urinary tract infection) Instructions Patient Instructions: Urine Culture, DI for Urinary Tract Infection (UTI) Discharge ED Provider: Evin Moran [facility] General Stated complaint: Possible UTI Nausea stomache hurts Time Seen by Provider: 09/30/22 12:42 History of Present Illness Provider Complaint: She is back to f/u over her uti symptoms. She has not got any better since her previous visit here. She is now having some n/v also. Related Data Home Medications Medication Instructions Recorded Confirmed warfarin 6 mg tablet 6 mg PO DIRECTED Blood thinner 04/02/21 08/02/22 Previous Rx's Medication Instructions Recorded nitrofurantoin 100 mg PO BID #10 caps 09/21/22 monohydrate/macrocrystals 100 mg capsule (Macrobid) phenazopyridine 200 mg tablet 200 mg PO Q8H 2 days #6 tabs 09/21/22 (Pyridium) ondansetron 4 mg disintegrating 4 mg PO Q8H PRN Nausea #12 tabs 09/30/22 tablet phenazopyridine 200 mg tablet 200 mg PO TID 2 days #6 tabs 09/30/22 sulfamethoxazole 800 1 tab PO BID #14 tabs 09/30/22 mg-trimethoprim 160 mg tablet (Bactrim DS) Allergies Allergy/AdvReac Type Severity Reaction Status Date / Time No Known Allergies Allergy Verified 08/02/22 10:35 [facility] Disclaimer: The information contained in this section may have been updated after the patient was seen, as this information can be updated by other users. Medical History Toenail fungus Urinary tract infection Surgical History History of open heart surgery History of tubal ligation Social History Smoking Status: Never smoker alcohol intake: never current occupational status: other Travel in the last 8 weeks: None household members: spouse housing: house ROS Obtained: Yes All systems reviewed & no additional complaints except as documented Constitutional Constitutional: Reports system reviewed and no additional complaints, except as documented, Denies chills and Denies fever(s) Eyes Eyes: Denies eye discharge ENT Ears, Nose, Mouth, and Throat: Denies dysphagia, Denies sore throat and Denies throat swelling Cardiovascular Cardiovascular: Denies ch
[2022-09-30 12:55] LABS: Apearance,Urine Clear (Clear); Color,Urine Orange (Yellow); Glucose,Urine (UA) 100 (Negative); Protein,Urine 3+ (Negative); Specific Gravity, Urine 1.015 (1.005-1.030)
[2022-09-30 12:56] LABS: Bilirubin,Urine 1+ (Negative); Blood, Urine 1+ (Negative); Ketones,Urine TRACE (Negative); UTC Leukocyte Esterase,Urine Negative (Negative); UTC Nitrate,Urine Positive (Negative); Urobilinogen,Urine 4 EU/dl (0.2)
[2022-09-30 13:18] VITALS: BP 140/71; PULSE 80; RESP 18; TEMP 36.8; O2SAT 99
== END 2022-09-30 13:21 | disposition home or self-care (01) ==
PROVIDERS: Emergency Provider Nurse Practitioner Family; PCP Family Medicine
DX: N39.0 Urinary tract infection, site not specified (principal); R11.2 Nausea with vomiting, unspecified
CPT/HCPCS: 81003; 87086; 99212; 99214; G0463

== ENCOUNTER 2022-11-19 10:54 | Outpatient (CLI) | payer BC, SELFPAY ==
[2022-11-19 15:58] LABS: PHA INR Fingerstick 1.9 (0.9-1.1)
== END 2022-11-19 16:09 ==
LOC: ACC 10:56
PROVIDERS: PCP Family Medicine; Visit Provider Family Medicine
DX: Z51.81 Encounter for therapeutic drug level monitoring (principal); Z79.01 Long term (current) use of anticoagulants; I48.91 Unspecified atrial fibrillation; Q24.5 Malformation of coronary vessels; Z95.2 Presence of prosthetic heart valve
CPT/HCPCS: 85610; 99211; G0463

== ENCOUNTER 2023-03-24 12:25 | Emergency (ER) | payer BC, SELFPAY ==
[2023-03-24 12:45] VITALS: BP 125/73; PULSE 76; RESP 20; TEMP 37.2; O2SAT 96; BMI 22.2
--- NOTE | 2023-03-24 13:07 | EXP.UTC ---
Discharge Plan Disposition Patient Disposition: Home, Self-Care Condition: Good Prescriptions Prescriptions: New amoxicillin 500 mg capsule 500 mg PO BID 10 Days Qty: 20 0RF No Action aspirin 81 mg Tablet,Chewable 81 mg PO DAILY warfarin 6 mg tablet 6 mg PO DIRECTED Rx Instructions: 6 MG //, 3 MG S/S// Referrals Follow up/Referrals: Brian Narayan MD [Primary Care Provider] - See instructions Activity Restrictions/Add. Instructions Additional Instructions/Restrictions: Make sure to let [facility] know your on antibiotics *Monitor Temp, Over the counter Motrin or Tylenol as directed/as needed Tylenol every 4 hours and Motrin every 6 hours (as long as your family doctor has told you that you can take it) for fever or pain. and straight to ER if unable to lower temp less than 101.0 after medication given *Warm salt water gargles may help to soothe the throat *Throat Lozenges? *Warm fluids like tea with honey may help to soothe the throat? *Sleep elevated *Humidifier/Vaporizer Your throat swab was sent for culture. Those results are typically sent to your primary care. Be sure to follow up in 2-3 days with your family doctor/primary care physician if no improvement so they can review those result and treat if necessary. If you don?t have a primary care doctor, I recommend you get one but in the mean time, you will have to return to a walk in clinic Follow up IMMEDIATELY for new or worsening symptoms or no Noticeable improvement over the next 48-72 hours. 911 for difficulty breathing or swallowing Clinical Impressions Clinical Impression: Pharyngitis Qualifiers: Pharyngitis/tonsillitis etiology: unspecified etiology Qualified Code(s): J02.9 - Acute pharyngitis, unspecified Instructions Patient Instructions: Sore Throat, Amoxicillin Discharge ED Provider: Yocasta Crocker [facility] General Stated complaint: cough Mode of Arrival: Ambulatory Source of Information: Patient Limitations: No Limitations Time Seen by Provider: 03/24/23 13:07 Description of Symptoms (Recalled from Triage Doc. by RN): PATIENT C/O SORE THROAT AND COUGH X 2 WEEKS HEENT Symptoms (Recalled from RN notes): Yes Resp Symptoms (Recalled from RN notes): Yes Skin Symptoms (Recalled from RN notes): No MS Symptoms (Recalled from RN notes): No Functional Status (Recalled from RN notes): WNL History of Present Illness Provider Complaint: Patient states that for the last couple of weeks she has been having sore throat and cough States over the last couple of days her throat is hurting worse and feels like she may have strep throat Related Data Home Medications Medication Instructions Recorded Confirmed warfarin 6 mg tablet 6 mg PO DIRECTED Blood thinner 04/02/21 03/24/23 aspirin 81 mg chewable tablet 81 mg PO DAILY 03/24/23 03/24/23 Previous Rx's Medication Instructions Recorded amoxicillin 500 mg capsule 500 mg PO BID 10 days #20 caps 03/24/23 Allergies Allergy/AdvReac Type Severity Reaction Status Date / Time No Known Allergies Allergy Verified 11/30/22 08:08 Worker's Comp Is this a Worker's Comp case?: No [facility] Disclaimer: The information contained in this section may have been updated after the patient was seen, as this information can be updated by other users. Medical History Toenail fungus Urinary tract infection Surgical History History of open heart surgery History of tubal ligation Social History Smoking Status: Never smoker alcohol intake: never current occupational status: other Travel in the last 8 weeks: None household members: spouse housing: house ROS Obtained: Yes All systems reviewed & no additional complaints except as documented and Yes Systems reviewed as appr
[2023-03-24 13:08] LABS: UTC Strep Screen (Rapid) Negative (Negative)
[2023-03-24 13:18] VITALS: BP 125/73; PULSE 76; RESP 20; TEMP 37.2; O2SAT 96
== END 2023-03-24 13:23 | disposition home or self-care (01) ==
PROVIDERS: Emergency Provider Nurse Practitioner; PCP Family Medicine
DX: J02.9 Acute pharyngitis, unspecified (principal); R05.9 Cough, unspecified
CPT/HCPCS: 87880; 99212; 99214; G0463

== ENCOUNTER 2023-06-08 11:57 | Outpatient (CLI) | payer BC, SELFPAY ==
[2023-06-08 14:22] LABS: PHA INR Fingerstick 2.6 (0.9-1.1)
== END 2023-06-08 14:35 ==
LOC: ACC 11:58
PROVIDERS: PCP Family Medicine; Visit Provider Family Medicine
DX: Z51.81 Encounter for therapeutic drug level monitoring (principal); Z79.01 Long term (current) use of anticoagulants; I48.91 Unspecified atrial fibrillation; Q24.5 Malformation of coronary vessels; Z95.2 Presence of prosthetic heart valve
CPT/HCPCS: 85610; 99211; G0463

== ENCOUNTER 2023-08-24 10:02 | Outpatient (CLI) | payer SELFPAY ==
[2023-08-24 11:57] LABS: PHA INR Fingerstick 1.8 (0.9-1.1)
== END 2023-08-24 14:12 ==
PROVIDERS: PCP Family Medicine; Visit Provider Family Medicine
DX: Z79.01 Long term (current) use of anticoagulants (principal); Z51.81 Encounter for therapeutic drug level monitoring
CPT/HCPCS: 85610; 99211; G0463

== ENCOUNTER 2023-12-23 11:32 | Outpatient (CLI) | payer MEDICAID, SELFPAY ==
[2023-12-23 13:25] LABS: PHA INR Fingerstick 2.6 (0.9-1.1)
== END 2023-12-23 13:35 ==
LOC: LAB 11:33
PROVIDERS: PCP Family Medicine; Visit Provider Family Medicine
DX: I48.91 Unspecified atrial fibrillation (principal); Q24.5 Malformation of coronary vessels; Z95.2 Presence of prosthetic heart valve
CPT/HCPCS: 85610; 99211; G0463

== ENCOUNTER 2024-01-25 08:40 | Emergency (ER) | payer MEDICAID, SELFPAY ==
[2024-01-25 08:53] VITALS: BP 118/69; PULSE 65; RESP 16; TEMP 36.8; O2SAT 100; BMI 22.8
--- NOTE | 2024-01-25 09:23 | ED_ITS ---
Discharge Plan Disposition Patient Disposition: Home, Self-Care Condition: Good Prescriptions Prescriptions: New benzonatate 100 mg capsule 100 mg PO TID PRN (Reason: cough) Qty: 30 0RF fluticasone propionate [Flonase Allergy Relief] 50 mcg/actuation spra y,suspension 1 - 2 spray intranasal DAILY Qty: 16 0RF Rx Instructions: administer into each nostril daily No Action sertraline [Zoloft] 50 mg tablet 50 mg PO DAILY Qty: 90 3RF Rx Instructions: to improve anxiety symptoms aspirin 81 mg Capsule 81 mg PO DAILY warfarin 6 mg tablet 6 mg PO DIRECTED Rx Instructions: 6 MG M//, 3 MG S/S/T/ Referrals Follow up/Referrals: Brian Narayan MD [Primary Care Provider] - See instructions Activity Restrictions/Add. Instructions Additional Instructions/Restrictions: *Monitor Temp, Over the counter Motrin or Tylenol as directed/as needed Tylenol every 4 hours and Motrin every 6 hours (as long as your family doctor has told you that you can take it) for fever or pain. and straight to ER if unable to lower temp less than 101.0 after medication given *Warm salt water gargles may help to soothe the throat *Throat Lozenges? *Warm fluids like tea with honey may help to soothe the throat? *Sleep elevated *Humidifier/Vaporizer *Flonase 2 sprays in each nostril daily but be aware that it may take 2-3 days before you notice improvement *Your throat swab was sent for culture. Those results are typically sent to your primary care. Be sure to follow up in 2-3 days with your family doctor/primary care physician if no improvement so they can review those result and treat if necessary. If you don?t have a primary care doctor, I recommend you get one but in the mean time, you will have to return to a walk in clinic Follow up IMMEDIATELY for new or worsening symptoms or no Noticeable improvement over the next 48-72 hours. 911 for difficulty breathing or swallowing Clinical Impressions Clinical Impression: Viral upper respiratory tract infection with cough Instructions Patient Instructions: Sore Throat, Cough Print Language Print Language: Maltese Discharge ED Provider: Yocasta Crocker [facility] HPI General Stated complaint: runny nose, sore throat, cough Mode of Arrival: Ambulatory Source of Information: Patient Time Seen by Provider: 01/25/24 09:24 Description of Symptoms (Recalled from Triage Doc. by RN): SORE THROAT, DRAINAGE, COUGH, RUNNY NOSE, AND SNEEZING, PT STATES SHE THINKS ITS ALLERGIES HEENT Symptoms (Recalled from RN notes): Yes Resp Symptoms (Recalled from RN notes): Yes Skin Symptoms (Recalled from RN notes): No MS Symptoms (Recalled from RN notes): No Functional Status (Recalled from RN notes): WNL History of Present Illness Provider Complaint: Patient states that she has been having sore throat, runny nose, cough and sneezing states that she feels like it may be allergies but wanted her to get checked for strep throat so she came in Related Data Home Medications ?Medication ?Instructions ?Recorded ?Confirmed warfarin 6 mg tablet 6 mg PO DIRECTED Blood thinner 04/02/21 01/25/24 aspirin 81 mg capsule 81 mg PO DAILY 01/25/24 01/25/24 Previous Rx's ?Medication ?Instructions ?Recorded sertraline 50 mg tablet (Zoloft) 50 mg PO DAILY #90 tabs 10/03/23 benzonatate 100 mg capsule 100 mg PO TID PRN cough #30 caps 01/25/24 fluticasone propionate 50 1 - 2 spray intranasal DAILY #16 01/25/24 mcg/actuation nasal grams spray,suspension (Flonase Allergy Relief) Allergies Allergy/AdvReac Type Severity Reaction Status Date / Time No Known Allergies Allergy Verified 10/03/23 14:56 Worker's Comp Is this a Worker's Comp case?: No [facility] Disclaimer: The information contained in this section may have been updated after the patient was seen, as this information can be updated by other users. Medical History Toenail fungus Urinary tract infection Surgical History History of tubal ligation History of open heart surgery Social History Smoking Status: Never smoker alcohol intake: never current occupational status: other Travel in the last 8 weeks: None household members: spouse housing: house ROS Obtained: Yes All systems reviewed & no additional complaints except as documented and Yes Systems reviewed as appropriate & no additional complaints except as documented ENT Ears, Nose, Mouth, and Throat: Reports system reviewed and no additional complaints, except as documented, Reports as per HPI, Reports nasal congestion, Reports nasal discharge and Reports sore throat Cardiovascular Cardiovascular: Reports system reviewed and no additional complaints, except as documented and Reports as per HPI Respiratory Respiratory: Reports system reviewed and no additional complaints, except as documented, Reports as per HPI and Reports cough Gastrointestinal Gastrointestingal: Reports system reviewed and no additional complaints, except as documented and as per HPI Physical Exam General General appearance: alert and in no apparent distress ENT ENT exam: Present mucous membranes moist Expanded ENT Exam Nose exam: Present other (clear drainage); Absent sinus tenderness Throat exam: Present tonsillar erythema; Absent tonsillar exudate Respiratory Respiratory exam: Present normal lung sounds bilaterally; Absent respiratory distress or wheezes Cardiovascular Cardiovascular exam: Present regular rate, normal rhythm and normal heart sounds Neurological Exam Neurological exam: Present alert, oriented X3 and normal gait Medical Decision Making Medical Records Screening: Per USPSTF and CDC recommendations, given the prevalence of disease in our region, it is our hospital?s policy to screen for HIV and viral Hepatitis for all patients aged 18 and over and those with ongoing risk factors. Carlos Inquiry Pt receiving controlled substance: No Carlos was queried for this patient: No Vital Signs: 01/25/24 08:53 Temperature 98.2 F Temperature Source Oral Pulse Rate [Left Radial] 65 Respiratory Rate 16 Blood Pressure [Left Arm] 118/69 Blood Pressure Mean [Left Arm] 85 02 Sat by Pulse Oximetry 100 Lab Data Lab results reviewed: Yes I reviewed the patient's lab results.
[2024-01-25 09:45] LABS: UTC Strep Screen (Rapid) Negative (Negative)
[2024-01-25 09:54] VITALS: BP 118/69; PULSE 65; RESP 16; TEMP 36.8; O2SAT 100
== END 2024-01-25 09:58 | disposition home or self-care (01) ==
PROVIDERS: Emergency Provider Nurse Practitioner; PCP Family Medicine
DX: J06.9 Acute upper respiratory infection, unspecified (principal); J02.9 Acute pharyngitis, unspecified; R05.9 Cough, unspecified
CPT/HCPCS: 87880; 99212; G0381

== ENCOUNTER 2024-06-15 10:03 | Outpatient (CLI) | payer MEDICAID, SELFPAY ==
[2024-06-15 11:08] LABS: PHA INR Fingerstick 3.1 (0.9-1.1)
== END 2024-06-15 11:11 ==
LOC: ACC 10:04
PROVIDERS: PCP Family Medicine; Visit Provider Family Medicine
DX: Z79.01 Long term (current) use of anticoagulants (principal); I48.91 Unspecified atrial fibrillation; Z95.2 Presence of prosthetic heart valve
CPT/HCPCS: 85610; 99211; G0463

== ENCOUNTER 2024-09-19 10:49 | Outpatient (CLI) | payer MEDICAID, SELFPAY ==
[2024-09-19 13:45] LABS: PHA INR Fingerstick 2.2 (0.9-1.1)
== END 2024-09-19 23:59 | disposition home or self-care (01) ==
LOC: ACC 10:50
PROVIDERS: PCP Family Medicine; Visit Provider Family Medicine
DX: Z79.01 Long term (current) use of anticoagulants (principal); Z95.2 Presence of prosthetic heart valve
CPT/HCPCS: 85610; 99211; G0463

== ENCOUNTER 2024-12-10 10:56 | Outpatient (CLI) | payer MEDICAID, SELFPAY ==
--- OUTSIDE RECORDS SUMMARY | 2024-12-10 10:59 | XMS_ITS | Clinical Summary ---
Author Organization [facility] Address [address] [place] [address] Care Team Providers Care Spool Sander Name Role Phone Irma Reinoso APRN Primary Care Provider [phone] Susie Hogue MD Unavailable [phone] Allergies No known active allergies Medications warfarin (COUMADIN) 10 MG tabletIndicatio ns:[facility] (INR:2.5-3.5),I NR = 4.0 per congenital heart team Take 6 mg by mouth daily 6 mg on Sun, , Wed, Thurs. 7 mg on Tue and Tuesday.. Active oxyCODONE-aceta minophen (PERCOCET) 5-325 MG Take 1 tablet by mouth every 6 (six) hours as needed for Pain. Max Daily Amount: 4 tablets 12 tablet 10/25/2019 12:58 PM EDT 10/25/2019 Active Active Problems Problem Noted Date Diagnosed Date Sick sinus syndrome 11/23/2019 Tubal occlusion 11/23/2019 Overview (11/23/2019): laparoscopic bilateral tubal occlusion (11/03/2019) H/O dilation and curettage 11/23/2019 Overview (11/23/2019): (11/02/2018) H/O mitral valve replacement with mechanical janel ve 11/23/2019 Overview (11/23/2019): S/P Mitral valve replacement with [address] Raymond mechanical valve (03/21/2000) S/P balloon mitral valvuloplasty 11/23/2019 Overview (11/23/2019): S/P Mitral valvuloplasty for severe MR (05/21/1993) Status post cardiac surgery 11/23/2019 Overview (11/23/2019): S/P coronary artery surgery. with pericardial patch of left coronary ostial stenosis and PRICE bypass to LAD (01/21/1993). 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 Immunizations Immunization Administration Dates Next Due DTaP, Unspecified 11/13/1996 Hep B Ped/Adolescent 12/27/1997,12/17/1996,11/13 INFLUENZA QUADRIVALENT LAIV (NASAL) 01/07/2015 Influenza Vaccine Quadrivalent Pf 01/12/2018, MMR 11/13/1996 OPV 11/13/1996 Td (Adult), 2 Lf Tetanus Tox oid, Preservative Free, Adsorbed 11/20/2003 Family History Medical History Relation Comments defects Brother clef palate; hea ring loss Asthma Maternal Grandmother Diabetes Maternal Grandmother Stroke Maternal Grandmother Hypertension Mother Seizures Mother Spina bifida Other 2019 Father of laverne clancy has Spina Bifida; doesn't think he had surgery; he walks Relation Status Comments Brother Maternal Grandmother Mother Other Social History Tobacco Use Types Packs/Day Years Used Date Smoking Tobacco: Never Smokeless Tobacco: Never Alcohol Use Standard Drinks/Week Comments No 0 (1 standard drink = 0.6 oz pur e alcohol) Comments No Sex and Gender Information Value Date Recorded Sex Assigned at Not on file Legal Sex Female 4:10 PM EST Gender Identity Not on file Sexual Orientation Not on file Last Filed Vital Signs Vital Sign Reading Time Taken Comments Blood Pressure 102/57 10/25/2019 2:15 PM EDT Pulse 76 10/25/2019 2:15 PM EDT Temperature 36.8 C (98.2 F) 10/25/2019 7:39 AM EDT Respiratory Rate 16 10/25/2019 2:15 PM EDT Oxygen Saturation 98% 10/25/2019 2:15 PM EDT Inhaled Oxygen Concentration - - Weight 45.4 kg (100 lb) 10/25/2019 7:39 AM EDT Height 147.3 cm (4' 10 ) 10/25/2019 7:39 AM EDT Body Mass Index 20.9 10/25/2019 7:39 AM EDT Plan of Treatment Health Maintenance Due Date Last Done Comments Polio (IPV) (2 of 3 - 4-dose series) 12/11/1996 11/13/1996 Tdap/Td Vaccine >11 yo (3 - Tdap) 11/21/2003 11/20/2003, 11/13/1996 Cervical Cancer Screening 2013 HPV Vaccine (1 - 3-dose SCDM series) 09/03/2019 Annual SDOH Screening 04/25/2024 Influenza Vaccine (#1) 2024 8, 01/07/2015, 01/07/2015 Hepatitis B (HepB) Vaccine Completed 12/27, 12/17/1996, 11/13/1996 Haemophilus Influenzae Type B (Hib) Vaccine Aged Out No longer eligible b ased on patient's age to complete this topic Hepatitis A (HepA) Vaccine Aged Out N o longer eligible based on patient's age to complete this topic Meningococcal ACWY Aged Out No longer eligible based on patient's age to complete this topic Pneumococcal Vaccines 6-49 y o Risk Aged Out No longer eligible b ased on patient's age to complete this topic Rotavirus (RV) Vaccine Aged Out No lo nger eligible based on patient's age to complete this topic Medical Devices Implanted Type Area Support Representative Device Identifier Shelf Expiration Date Model / Serial / Lot Medt- 4076 Capsurefix Novus Mri Surescan [id number] Pacemakers [employer] 4076 CAPSUREFIX NOVUS MRI SURESCAN / [id number] / Pacemaker Andres Dr Mri [id number] - [id number] Implanted:Qty : 1 on 10/25/2019 by Trino Coulter MD at [facility] Pacemakers Left: Chest Wall [employer] CARDIAC RHYTHM MGMT 01/06/2021 [id number] / [id number] / Medt- [id number] Sylvia Xt Dr Mri [id number] Implanted:05/2019 (Quantity not on file) Pacemakers [employer] [id number] SYLVIA XT DR MRI / [id number] / Explanted Type Area Support Representative Device Identifier Shelf Expiration Date Model / Serial / Lot Medt- [id number] Adapta [id number] Implanted:06/2009 (Quantity not on file) Explanted:Qty: 1 on 10/25/2019 by Trino Coulter MD at [facility] Pacemakers [employer] [id number] ADAPTA / [id number] / Advance Directives * Full Code (Latest Code Status on File) Date Activated Date Inactivated Comments 10/31/2018 1:55 PM 11/06/2018 3:50 PM * Full Code Date Activated Date Inactivated Comments 05/07/2016 10:50 PM 05/08/2016 3:17 PM Care Teams Spool Sander Relationship Specialty Start Date End Date Irma Reinoso APRN [address] [facility] [address] [place] [address] PCP - General Nurse Practitioner Family 10/16/18 Susie Hogue MD [address] [place] [address] [facility] [address] [place] [address] ZEB - OBMARGEN Obstetrics and Gynecology 10/16/18
--- OUTSIDE RECORDS SUMMARY | 2024-12-10 10:59 | XMS_ITS | Clinical Summary ---
Author Organization [facility] Address [address] [place] [address] Care Team Providers Care Activities Counselor Name Role Phone Brian Narayan MD Primary Care Provider [phone] Allergies No known active allergies Medications aspirin 81 MG EC tablet Take 1 tablet (81 mg) by mouth 1 (one) time each day. Active sertraline (Zoloft) 50 MG tablet Take 1 tablet (50 mg) by mouth 1 (one) time each day. 10/03/2023 Active warfarin (Coumadin) 4 MG tablet Take 1 tablet by mouth daily. 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 Rash 05/08/2024 Strep throat 05/08/2024 Onychomycosis 05/08/2024 UTI (urinary tract infection) 05/08/2024 Viral upper respiratory tract infection with cou gh 05/08/2024 Regular astigmatism, bilateral 09/15/2023 S/P CABG x 1 01/18/2020 Stenosis of left anterior descending artery 12/25 H/O mitral valve replacement with mechanical janel ve 11/23/2019 Overview (10/07/2020): S/P Mitral valve replacement with [address] Raymond mechanical valve (03/21/2000) H/O dilation and curettage 11/23/2019 Overview (10/07/2020): (11/02/2018) Sick sinus syndrome 11/23/2019 Tubal occlusion 11/23/2019 Overview (10/07/2020): laparoscopic bilateral tubal occlusion (11/03/2019) History of open heart surgery 11/23/2019 Overview (10/07/2020): S/P Mitral valvuloplasty for severe MR (05/21/1993) S/P coronary artery surgery. with pericardial patch of left coronary ostial stenosis and PRICE bypass to LAD (01/21/1993). 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 Chronic congestive heart failure 05/05/2016 Hypoglycemia 12/16/2015 Depression 12/11/2015 Eczema 12/11/2015 Insomnia 12/11/2015 Encounters Date Type Department Care Team Description 10/25/2024 Telephone Cardiac Imaging [address] [place] [address] Cherelle Gale 09/13/2024 Telephone Cardiac Imaging [address] [place] [address] Cherelle Gale 09/11/2024 11:40 AM EDT Office Visit [facility] [place] [address] [place] [address] Kenny Boyd MD Sick sinus syndrome (CMS/HCC) (Primary Dx); Pacemaker 09/11/2024 Travel from Last 3 Months Immunizations Immunization Administration Dates Next Due DTaP, Unspecified 11/13/1996 Hep B, Adolescent or Pediatric 12/27/1997,1996,11/13/1996 Influenza, injectable, quadrivalent 03/10/2020 Influenza, live, intranasal, quadrivalent 2014 MMR 11/13/1996 OPV 11/13/1996 TD (adult), 2 Lf tetanus tox oid, preservative free, adsorbed 11/20/2003 Family History Medical History Relation Name Comments Cleft palate Brother 1 Conversions - Other Brother 2 deafness or hearing loss Spina bifida Brother 3 Seizures Mother Spina bifida Other Relation Name Status Comments Brother 1 Brother 2 Brother 3 Mother Other Social History Tobacco Use Types Packs/Day Years Used Date Smoking Tobacco: Never Smokeless Tobacco: Never Tobacco Cessation:Counseling Given: Not Answered Alcohol Use Standard Drinks/Week Comments Not Currently 0 (1 standard drink = 0.6 oz pur e alcohol) PHQ-2 Answer Date Recorded Patient Health Questionnaire-2 Score 0 09/11/2024 PHQ-9 Answer Date Recorded Patient Health Questionnaire-9 Score 0 09/11/2024 PHQ-2A Answer Date Recorded Patient Health Questionnaire-2 Score 0 12/17/2022 Comments Unknown Sex and Gender Information Value Date Recorded Sex Assigned at Not on file Legal Sex Female 7:19 PM EDT Gender Identity Not on file Sexual Orientation Not on file Last Filed Vital Signs Vital Sign Reading Time Taken Comments Blood Pressure 116/81 09/11/2024 11:42 AM EDT Pulse 90 09/11/2024 11:42 AM EDT Temperature - - Respiratory Rate - - Oxygen Saturation 98% 09/11/2024 11:42 AM EDT Inhaled Oxygen Concentration - - Weight 52.3 kg (115 lb 4.8 oz) 09/11/2024 11:42 AM EDT Height 147.3 cm (4' 10 ) 09/11/2024 11:42 AM EDT Body Mass Index 24.1 09/11/2024 11:42 AM EDT Plan of Treatment Upcoming Encounters Date Type Department Care Team ([facility] st Contact Info) Description 04/12/2025 1:00 PM EST Appointment Cardiac Imaging [address] [place] [address] 04/12/2025 2:00 PM EST Office Visit [facility] [place] [address] [facility] [address] Viet Gutierres MD [address] [place] [address] 09/10/2025 10:20 AM EDT Office Visit [facility] [place] [address] [facility] [address] Kenny Boyd MD [address] [place] [address] Health Maintenance Due Date Last Done Comments [facility]-HIV Screening 1992 [facility]-Infant/Child/Adol SDOH Screenings 1992 [facility]-IPV Vaccines (2 of 3 - 4-dose series) 12/11/1996 11/13/1996 [facility]-Varicella Vaccines (1 of 2 - 13+ 2-dose series) 2005 [facility]- SDOH Screenings 2010 [facility]-Adult SDOH Screenings 2010 [facility]-Pneumococcal Vaccine: Pediatrics (0 to 5 Years) and At-Risk Patients (6 to 49 Years) (1 of 2 - PCV) 09/03/2011 [facility]-Pap Smear 2013 HPV Vaccines (1 - 3-dose SCDM series) 09/03/2019 [facility]-Cervical Cancer Screening 2022 [facility]-HPV/Cotest 2022 [id number] Vaccine (1 - season) 2023 [facility]-Influenza Vaccine (#1) 12/24/202404/06, 03/10/2020, 01/07/2015 [facility]-Depression Screening 09/11/2025 025, 09/11/2024 [facility]-DTaP,Tdap,and Td Vaccines (4 - Td or Tdap) 04/06/2034 04/06/2024, 11/20/2003, 11/13/1996 [facility]-Zoster Vaccines (1 of 2) 2042 [facility]-Hepatitis B Vaccines Completed 998, 12/17/1996, 11/13/1996 [facility]-Hepatitis C Screening Completed 11/10/2019 [facility]-HIB Vaccines Aged Out No longer e ligible based on patient's age to complete this topic [facility]-Hepatitis A Vaccines Aged Out No longer eligible based on patient's age to complete this topic [facility]-Rotavirus Vaccines Aged Out No lo nger eligible based on patient's age to complete this topic Procedures Procedure Name Priority Date/Time Associated Diagnosis Comments HEPATITIS C ANTIBODY - ED W/REFLEX TO HCV QUANT PCR Routine 11/10/2019 10:02 PM EDT from Last 3 Months or Most Recently Relevant to Health Maintenance Results * [place] Hepatitis C Antibody (11/10/2019 10:02 PM EDT) [place] Hepatitis C Ab NEGATIVE Reference Range: Negative SUNQUEST 11/10/2019 10:0 2 PM EDT 11/10/2019 10:25 PM EDT Dawit Ely MD LAB BLOOD ORDERABLES Final Resu lt SUNQUEST from Last 3 Months or Most Recently Relevant to Health Maintenance Insurance [facility] MEDICAID Care Teams Activities Counselor Relationship Specialty Start Date End Date Brian Narayan MD PCP - General 02/18/21
--- OUTSIDE RECORDS SUMMARY | 2024-12-10 10:59 | XMS_ITS | Encounter Summary ---
Author Organization Healthcare Address [address] [place] [address] Care Team Providers Care Financial Services Specialist Name Role Phone Brian Narayan MD Primary Care Provider [phone] Encounter Details Date Type Department Care Team (Late st Contact Info) Description 10/25/2024 Telephone Cardiac Imaging [address] [place] [address] Cherelle Gale Social History Tobacco Use Types Packs/Day Years Used Date Smoking Tobacco: Never Smokeless Tobacco: Never Alcohol Use Standard Drinks/Week Comments Not Currently [...] on file Sexual Orientation Not on file documented as of this encounter Miscellaneous Notes * Telephone Encounter - Cherelle Gale - 10/25/2024 11:37 AM EDT Device [facility] called and spoke with patient notifying [facility] is not able to connect with the patient???s pacemaker. Patient is adept with phone and opened [facility]ika, checked [employer], low data mode, and updates in settings. Unable to connect we request patient call [employer] [facility] at [phone] for support and f/u with [facility] at [phone] with update.Thank you. documented in this encounter Plan of Treatment Upcoming Encounters Date Type Department Care Team (Late st Contact Info) Description 04/12/2025 1:00 PM EST Appointment Cardiac Imaging [address] [place] [address] 04/12/2025 2:00 PM EST Office Visit [facility] [place] [address] [phone] Viet Gutierres MD [address] [place] [phone] 09/10/2025 10:20 AM EDT Office Visit [facility] [place] [address] [phone] Kenny Boyd MD [address] [place] [phone] documented as of this encounter Visit Diagnoses Not on filedocumented in this encounter Additional Health Concerns Assessment Noted Time PHQ-9 Depression Total Score: 0 09/12/19 11:48 AM EDT A fall risk assessment has been complete d for the patient 09/11/2024 11:48 AM EDT A Body Mass Index follow-up plan has been documented for the patient 09/11/2024 12:18 PM EDT documented as of this encounter Care Teams Financial Services Specialist Relationship Specialty Start Date End Date Brian Narayan MD PCP - General 02/18/21 documented as of this encounter
[2024-12-10 11:39] LABS: PHA INR Fingerstick 1.8 (0.9-1.1)
== END 2024-12-10 11:41 ==
LOC: ACC 10:57
PROVIDERS: PCP Family Medicine; Visit Provider Family Medicine
DX: Z95.2 Presence of prosthetic heart valve (principal)
CPT/HCPCS: 85610; 99211; G0463

== ENCOUNTER 2024-12-18 11:11 | Outpatient (CLI) | payer MEDICAID, SELFPAY ==
--- OUTSIDE RECORDS SUMMARY | 2024-12-17 09:52 | XMS_ITS | Encounter Summary ---
Author Organization Healthcare Address [address] [place] [address] Care Team Providers Care Cage Manager Name Role Phone Brian Narayan MD Primary Care Provider [phone] Encounter Details Date Type Department Care Team (Latest Contact Info) Description 12/17/2024 9:52 AM EDT - 12/17/2024 11:59 PM EDT Hospital Encounter Cardiac Imaging [address] [place] [address] Pacemaker Discharge Disposition: Home or Self Care [...] EST Appointment Cardiac Imaging [address] [place] [address] 04/12/2025 2:00 PM EST Office Visit [facility] 800 [facility]. [address] [address] Viet Gutierres MD [address] [place] [address] 09/10/2025 10:20 AM EDT Office Visit [facility] [address] [phone] Kenny Boyd MD [address] [place] [address] documented as of this encounter Procedures Procedure [...] documented as of this encounter Care Teams Cage Manager Relationship Specialty Start Date End Date Brian Narayan MD PCP - General 02/18/21 documented as of this encounter
--- OUTSIDE RECORDS SUMMARY | 2024-12-18 11:30 | XMS_ITS | Encounter Summary ---
Author Organization Healthcare Address [address] [place] [address] Care Team Providers Care Auto Club Safety Program Coordinator Name Role Phone Brian Narayan MD Primary Care Provider [phone] Encounter Details Date Type Department Care Team (Latest Contact Info) Description 12/17/2024 Travel Social History Tobacco Use Types Packs/Day Years [...] on file documented as of this encounter Plan of Treatment Upcoming Encounters Date Type Department Care Team (Late st Contact Info) Description 04/12/2025 1:00 PM EST Appointment Cardiac Imaging [address] [place] [address] 04/12/2025 2:00 PM EST Office Visit [facility] [address] [place] [phone] Viet Gutierres MD [address] [place] [address] 09/10/2025 10:20 AM EDT Office Visit [facility] [address] [place] [address] Kenny Boyd MD [address] [place] [address] documented as of this encounter Visit Diagnoses [...] documented as of this encounter Care Teams Auto Club Safety Program Coordinator Relationship Specialty Start Date End Date Brian Narayan MD PCP - General 02/18/21 documented as of this encounter
--- OUTSIDE RECORDS SUMMARY | 2024-12-18 11:30 | XMS_ITS | Encounter Summary ---
Author Organization Healthcare Address [address] [place] [address] Care Team Providers Care Manager Risk Management Name Role Phone Brian Narayan MD Primary Care Provider [phone] Encounter Details Date Type Department Care Team (Late st Contact Info) Description 10/25/2024 Telephone Cardiac Imaging [address] [place] [address] Cherelle Gale Social History Tobacco Use Types [...] called and spoke with patient notifying [facility] is not able to connect with the patient???s pacemaker. Patient is adept with phone and opened kanika, checked [employer], low data mode, and updates in settings. Unable to connect we request patient call [employer] [facility] at [phone] for support and f/u with [facility] at [phone] with update.Thank you. documented in this encounter Plan of Treatment Upcoming Encounters Date Type Department Care Team (Late st Contact Info) Description 04/12/2025 1:00 PM EST Appointment Cardiac Imaging [address] [place] [address] 04/12/2025 2:00 PM EST Office Visit [facility] [place] [address] [phone] Viet Gutierres MD [address] [place] [address] 09/10/2025 10:20 AM EDT Office Visit [facility] [place] [address] [phone] Kenny Boyd MD [address] [place] [address] documented as of this encounter Visit Diagnoses [...] documented as of this encounter Care Teams Manager Risk Management Relationship Specialty Start Date End Date Brian Narayan MD PCP - General 02/18/21 documented as of this encounter
--- OUTSIDE RECORDS SUMMARY | 2024-12-18 11:30 | XMS_ITS | Clinical Summary ---
Author Organization [facility] Address [address] [place] [address] Care Team Providers Care Caving Guide Name Role Phone Irma Reinoso APRN Primary Care Provider [phone] Susie Hogue MD Unavailable [phone] Allergies No known active allergies Medications warfarin (COUMADIN) 10 MG tabletIndicatio ns:[facility] Mitral Valve (INR:2.5-3.5),I NR = 4.0 per congenital heart team Take 6 mg by mouth daily 6 mg on Sun, Tu, Wed, Thurs. 7 mg on Tue and [...] (11/23/2019): Added automatically from request for surgery [id number] Generator change (10/25/2019) Missed 11/01/2018 Request for sterilization 11/01/2018 Congenital heart disease in adult 10/31/2018 High-risk 10/31/2018 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 Overview (06/07/2016): Needs hunter trapper Subtherapeutic international normalized ratio (I NR) 05/08/2016 [...] this topic Medical Devices Implanted Type Area Acoustics Teacher Device Identifier Shelf Expiration Date Model / Serial / Lot Medt- 4076 Capsurefix Novus Mri Surescan [id number] Pacemakers [employer] 4076 CAPSUREFIX NOVUS MRI SURESCAN / [id number] / Pacemaker Sylvia Dr Mri [id number] - [id number] Implanted:Qty : 1 on 10/25/2019 by Trino Coulter MD at [facility] Pacemakers Left: Chest Wall [employer] CARDIAC RHYTHM MGMT 01/06/2021 [id number] / [id number] / Medt- [id number] Sylvia Xt Dr Mri [id number] Implanted:05/2019 (Quantity not on file) Pacemakers [employer] [id number] SYLVIA XT DR MRI / [id number] / Explanted Type Area Acoustics Teacher Device Identifier Shelf Expiration Date Model / Serial / Lot Medt- [id number] Adapta [id number] Implanted:06/2009 (Quantity not on file) Explanted:Qty: 1 on 10/25/2019 by Trino Coulter MD at [facility] Pacemakers [employer] [id number] ADAPTA / [id number] / Advance Directives * Full Code (Latest Code Status on File) Date Activated Date Inactivated Comments 10/31/2018 1:55 PM 11/06/2018 3:50 PM * Full Code Date Activated Date Inactivated Comments 05/07/2016 10:50 PM 05/08/2016 3:17 PM Care Teams Caving Guide Relationship Specialty Start Date End Date Irma Reinoso APRN [address] [place] [address] [place] [address] PCP - General Nurse Practitioner Family 10/16/18 Susie Hogue MD [address] [place] [address] [facility] [address] [place] [address] PCP - OBGYN Obstetrics and Gynecology 10/16/18
--- OUTSIDE RECORDS SUMMARY | 2024-12-18 11:30 | XMS_ITS | Clinical Summary ---
Author Organization [facility] Address [address] [place] [address] Care Team Providers Care Acquisition Analyst Name Role Phone Brian Narayan MD Primary Care Provider [phone] Allergies No known active allergies Medications aspirin [...] (10/07/2020): Added automatically from request for surgery [id number] Generator change (10/25/2019) Supervision of high-risk 11/15/2018 Missed 11/01/2018 Request for sterilization 11/01/2018 Congenital heart disease in adult 10/31/2018 High-risk 10/31/2018 Pacemaker 10/17/2018 Anxiety 09/14/2016 Chronic headaches 09/14/2016 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 Overview (10/07/2020): Needs healthcare interpreter Subtherapeutic international normalized ratio (I NR) 05/08/2016 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 Chronic congestive heart failure 05/05/2016 Hypoglycemia 12/16/2015 Depression 12/11/2015 Eczema 12/11/2015 Insomnia 12/11/2015 Encounters Date Type Department Care Team Description 12/17/2024 9:52 AM EDT - 12/17/2024 11:59 PM EDT Hospital Encounter Cardiac Imaging [address] [place] [address] Pacemaker Discharge Disposition: Home or Self Care 12/17/2024 Travel 10/25/2024 Telephone Cardiac Imaging [address] [place] [address] Cherelle Gale from Last 3 Months Immunizations Immunization Administration [...] PM EST Appointment Cardiac Imaging [address] [place] [address] 04/12/2025 2:00 PM EST Office Visit [facility] 800 [facility]. [address] [address] Viet Gutierres MD [address] [place] [address] 09/10/2025 10:20 AM EDT Office Visit [facility] 800 [facility]. [address] [address] Kenny Boyd MD [address] [place] [address] Health Maintenance Due Date Last Done Comments [facility]-HIV Screening 1992 [facility]-/Child/Adol SDOH Screenings 1992 [facility]-IPV Vaccines (2 of [...] 09/03/2019 [facility]-Cervical Cancer Screening 2022 [facility]-HPV/Cotest 2022 CIB-UNTEB-16 Vaccine (1 - season) 2023 [facility]-Influenza Vaccine [...] PACEMAKER Routine 12/17/2024 10:02 AM EDT Pacemaker HEPATITIS C ANTIBODY - ED W/REFLEX TO HCV QUANT PCR Routine 11/10/2019 10:02 PM EDT from Last 3 Months or Most Recently Relevant to Health Maintenance Results * CARDIAC DEVICE CHECK - REMOTE [...] new events since last clinic/remote report evaluation. us Yocasta Ruiz Saulearldiana MAGANA CV IMPLANTABLE CARDIAC DEV ICE PROCEDURES Final Result * [place] Hepatitis C Antibody (11/10/2019 10:02 PM EDT) [place] Hepatitis C Ab NEGATIVE Reference Range: Negative SUNQUEST 11/10/2019 10:0 2 PM EDT 11/10/2019 10:25 PM EDT us Dawit Ely MD LAB BLOOD ORDERABLES Final Resu lt SUNQUEST from Last 3 Months or Most Recently Relevant to Health Maintenance Insurance [facility] MEDICAID Care Teams Acquisition Analyst Relationship Specialty Start Date End Date Brian Narayan MD PCP - General 02/18/21
[2024-12-18 11:39] LABS: PHA INR Fingerstick 3.3 (0.9-1.1)
--- NOTE | 2024-12-18 12:55 | XR_ITS ---
FINAL REPORT CLINICAL HISTORY: pain in middle finger FINDINGS: AP, lateral and oblique views of the right hand were obtained. There is no prior exam for comparison. There is a well-corticated calcification adjacent to the base of the third proximal phalanx favored to be chronic. There is no acute fracture or dislocation. The joint spaces are preserved. Soft tissue edema centered at the third PIP joint. IMPRESSION: Soft tissue edema without acute osseous abnormality of the right hand. Reviewed, Interpreted and Dictated by Frannie Thao MD Transcribed by Lily Chacon Authenticated and [facility]
== END 2024-12-18 11:41 | disposition still patient (30) ==
LOC: ACC 11:13
PROVIDERS: PCP Family Medicine; Visit Provider Nurse Practitioner
DX: M79.89 Other specified soft tissue disorders (principal); S69.90XA Unspecified injury of unspecified wrist, hand and finger(s), initial encounter; M79.646 Pain in unspecified finger(s); Z95.2 Presence of prosthetic heart valve
CPT/HCPCS: 73130; 85610; 99211; G0463

== ENCOUNTER 2024-12-20 04:18 | Day surgery (SDC) | payer MEDICAID, SELFPAY ==
--- OUTSIDE RECORDS SUMMARY | 2024-12-17 09:52 | XMS_ITS | Encounter Summary ---
Author Organization Healthcare Address [address] [place] [address] Care Team Providers Care Airport Operations Duty Manager Name Role Phone Brian Narayan MD Primary Care Provider [phone] Encounter Details Date Type Department Care Team (Latest Contact Info) Description 12/17/2024 9:52 AM EDT - 12/17/2024 11:59 PM EDT Hospital Encounter Cardiac Imaging [address] [place] [address] Pacemaker Discharge Disposition: Home or Self Care Social History Tobacco Use Types Packs/Day Years [...] on file documented as of this encounter Medications at Time of Discharge aspirin 81 MG EC tablet Take 1 tablet (81 mg) by mouth 1 (one) time each day. sertraline (Zoloft) 50 MG tablet Take 1 tablet (50 mg) by mouth 1 (one) time each day. 10/03/2023 warfarin (Coumadin) 4 MG tablet Take 1 tablet by mouth daily. 08/10/2024 documented as of this encounter Plan of Treatment Upcoming Encounters Date Type Department Care Team (Late st Contact Info) Description 04/12/2025 1:00 PM EST Appointment Cardiac Imaging [address] [place] [address] 04/12/2025 2:00 PM EST Office Visit [facility] 800 [facility]. [address] [address] Viet Gutierres MD [address] [place] [address] 09/10/2025 10:20 AM EDT Office Visit [facility] [address] [phone] Kenny Boyd MD [address] [place] [address] documented as of this encounter Procedures Procedure Name Priority Date/Time Associated Diagnosis Comments CARDIAC DEVICE CHECK - REMOTE - PACEMAKER Routine 12/17/2024 10:02 AM EDT Pacemaker documented in this encounter Results * CARDIAC DEVICE CHECK - REMOTE - PACEMAKER (12/17/2024 10:02 AM EDT) Anatomical Region Laterality Modality Other Narrative 12/17/2024 11:03 AM EDT Pacemaker remote interrogation. Device successfully sensing intrinsic cardiac events and marking appropriately. Available impedance values demonstrate stable trend within normal limits. Available lead capture thresholds measured without significant change. Adequate safety margin programmed in device permanent outputs. Battery discharge trend stable, appropriate given total time in service. EGMs reviewed against implant indication and diagnosis. Presenting rhythm is A paced and sensed. Programmed AAI Otherwise unremarkable. No new events since last clinic/remote report evaluation. Yocasta Ruiz Felix MAGANA CV IMPLANTABLE CARDIAC DEV ICE PROCEDURES Final Result documented in this encounter Visit Diagnoses Diagnosis Pacemaker Cardiac pacemaker in situ documented in this encounter Additional Health Concerns Assessment Noted Time PHQ-9 Depression Total Score: 0 09/12/19 25 11:48 AM EDT A fall risk assessment has been complete d for the patient 09/11/2024 11:48 AM EDT A Body Mass Index follow-up plan has been documented for the patient 09/11/2024 12:18 PM EDT documented as of this encounter Care Teams Airport Operations Duty Manager Relationship Specialty Start Date End Date Brian Narayan MD PCP - General 02/18/21 documented as of this encounter
[2024-12-20] VITALS (16 sets, daily range): BP systolic 90–111; BP diastolic 40–81; PULSE 67–84; RESP 14–18; TEMP 36.4–36.7; O2SAT 95–99; BMI 23.3
--- NOTE | 2024-12-20 04:29 | CT_ITS ---
PROCEDURE INFORMATION: Exam: CT Abdomen And Pelvis With Contrast Exam date and time: 12/20/2024 5:18 AM Age: 34 years old Clinical indication: Abdominal pain; Additional info: Rlq/pelvic pain, HX ovarian cysts TECHNIQUE: Imaging protocol: Computed tomography of the abdomen and pelvis with contrast. Radiation optimization: All CT scans at this facility use at least one of these dose optimization techniques: automated exposure control; mA and/or kV adjustment per patient size (includes targeted exams where dose is matched to clinical indication); or iterative reconstruction. Contrast material: ISOVUE; Contrast volume: 75 ml; Contrast route: IV; COMPARISON: US TRANSVAGINAL 09/15/2020 2:17 PM FINDINGS: Liver: Normal. No mass. Gallbladder and biliary ducts: Normal. No calcified stones. No ductal dilation. Pancreas: Normal. No ductal dilation. Spleen: Normal. No splenomegaly. Adrenal glands: Normal. No mass. Kidneys and ureters: Normal. No hydronephrosis. Stomach and bowel: Unremarkable. No obstruction. No mucosal thickening. Appendix: No evidence of appendicitis. Intraperitoneal space: Large amount of intra-abdominal hemorrhage appears to be originating from the pelvis. There is active extravasation within the right lower quadrant adjacent to the ovary measuring 1.7 x 0.6 cm in size. Vasculature: Unremarkable. No abdominal aortic aneurysm. Lymph nodes: Unremarkable. No enlarged lymph nodes. Urinary bladder: Unremarkable as visualized. Reproductive: See Intraperitoneal space finding. Bones/joints: Unremarkable. No acute fracture. Soft tissues: Unremarkable. IMPRESSION: 1. Large amount of intra-abdominal hemorrhage appears to be originating from the pelvis. There is active extravasation within the right lower quadrant adjacent to the ovary measuring 1.7 x 0.6 cm in size. 2. The remainder of the examination is unremarkable.
--- NOTE | 2024-12-20 04:35 | ED_ITS ---
Discharge Plan Disposition Patient Disposition: Admitted Prescriptions Prescriptions: No Action sertraline [Zoloft] 50 mg tablet 50 mg PO DAILY Qty: 90 3RF Rx Instructions: to improve anxiety symptoms warfarin 4 mg tablet 4 mg PO DAILY Qty: 30 1RF aspirin 81 mg Capsule 81 mg PO DAILY fluticasone propionate [Flonase Allergy Relief] 50 mcg/actuation spray,suspension 1 - 2 spray intranasal DAILY Qty: 16 0RF Rx Instructions: administer into each nostril daily Referrals Follow up/Referrals: Brian Narayan MD [Primary Care Provider, Family Practice] - See instructions Clinical Impressions Clinical Impression: Rupture of cyst of right ovary, Intraabdominal hemorrhage Stand Alone Forms Stand Alone Forms: Work/School Release Instructions Patient Instructions: DI for Acute Abdominal Pain Print Language Print Language: [place] Discharge ED Provider: Tanvir Martinez Adult HPI General Chief complaint: Abdominal Pain Stated complaint: pelvic,back pain,history-ovarian cyst rupture Time Seen by Provider: 12/20/24 04:20 Mode of Arrival: Ambulatory Source of Information: Patient Description of Symptoms (Recalled from ER Triage Doc. by RN): Pt reports pelvic pain that began yesterday and rates pain 10/10 and sharp. Pt also reports having pain with taking a breathe. History of Present Illness HPI narrative: 34-year-old female with history of tubal ligation, prior ovarian cyst rupture, presents for severe right lower quadrant abdominal pain/pelvic pain. She reports the pain started yesterday evening, and then became sharp and more severe prior to arrival. Reports it is 10 out of 10. Reports pain with deep breathing. Related Data Home Medications ?Medication ?Instructions ?Recorded ?Confirmed aspirin 81 mg capsule 81 mg PO DAILY 01/25/2411/24 Previous Rx's ?Medication ?Instructions ?Recorded fluticasone propionate 50 1 - 2 spray intranasal DAILY #16 01/25/24 mcg/actuation nasal grams spray,suspension (Flonase Allergy Relief) sertraline 50 mg tablet (Zoloft) 50 mg PO DAILY #90 ta bs 10/22/24 warfarin 4 mg tablet 4 mg PO DAILY #30 tabs 10/22 Allergies Allergy/AdvReac Type Severity Reaction Status Date / Time No Known Allergies Allergy Verified 12/18/24 12:13 [facility] Disclaimer: The information contained in this section may have been updated after the patient was seen, as this information can be updated by other users. Medical History (Updated 12/20/24 @ 05:44 by Tanvir Martinez MD) Injury of right middle finger Finger injury Toenail fungus Urinary tract infection Surgical History History of tubal ligation History of open heart surgery Family History Other Cancer Colon abnormality Hypertension Social History Smoking Status: Never smoker alcohol intake: never current occupational status: other Travel in the last 8 weeks?: None household members: spouse housing: house Have you lived/traveled outside US in past 30 days?: No Contact w/someone who lives/traveled outside US past 30 days?: No Exposure to someone with infectious disease in past 14 days?: No Do you have a fever (greater than 100.4 F or 38 C)?: No Have you tested positive for COVID-19?: No Exposed to someone with COVID-19 in past 14 days?: No Do you have a sore throat?: No Do you have a cough?: No Do you have any weakness?: No Do you have any diarrhea?: No Are you experiencing any unusual bleeding?: No Do you have any muscle aches/pain?: No Do you have any abdominal pain?: Yes Are you experiencing loss of taste or smell?: No Other Medical History Have you received the Flu Vaccine for this season: No Have you received the Pneumonia Vaccine: No ROS Obtained: Yes All systems reviewed & no additional complaints except as documented Physical Exam General General appearance: alert and in distress Head Head exam: atraumatic and normocephalic Eye Eye exam: Present normal appearance, PERRL and EOMI ENT ENT exam: Present normal oropharynx and normal external ear exam Neck Neck exam: Present normal inspection and full ROM Chest Chest inspection: Present normal inspection and symmetric chest wall rise; Absent tenderness Respiratory Respiratory exam: Present normal lung sounds bilaterally; Absent respiratory distress Cardiovascular Cardiovascular exam: Present regular rate and normal rhythm Abdominal Exam Abdominal exam: Present distention, tenderness (Severe generalized abdominal tenderness) and guarding Extremities Exam Extremities exam: Present normal inspection; Absent edema or joint swelling Back Exam Back exam: Present normal inspection; Absent tenderness Neurological Exam Neurological exam: Present alert and oriented X3; Absent motor sensory deficit Psychiatric Psychiatric exam: Present normal affect and normal mood Skin Skin exam: Present warm, dry and normal color Lymphatic Lymphatic Findings: no adenopathy Medical Decision Making Medical Records Medical records reviewed: Yes I reviewed the patient's medical records. Screening: Per USPSTF and CDC recommendations, given the prevalence of disease in our region, it is our hospital?s policy to screen for HIV and viral Hepatitis for all patients aged 18 and over and those with ongoing risk factors. Carlos Inquiry Pt receiving controlled substance: No Carlos was queried for this patient: No Vital Signs: 12/20/24 04:28 12/20/24 04:45 Temperature 98.1 F Temperature Source Oral Pulse Rate 80 Pulse Rate [Left] 82 Respiratory Rate 16 14 Blood Pressure 94/63 L Blood Pressure [Right Arm] 111/69 Blood Pressure Mean [Right Arm] 83 Blood Pressure Source Automatic Cuff Blood Pressure Source [Right Arm] Automatic Cuff Blood Pressure Position Sitting Blood Pressure Position [Right Arm] Supine 02 Sat by Pulse Oximetry 99 99 Oxygen Delivery Method Room Air Room Air Lab Data Lab results reviewed: Yes I reviewed the patient's lab results. Lab Results 12/20/24 04:41: WBC 14.2 H, RBC 4.37, Hgb 13.1, Hct 38.6, MCV 88.3, MCH 30.0, MCHC 33.9, RDW 12.4, Plt Count 255, MPV 9.8, Neut % (Auto) 75.3, Lymph % (Auto) 14.8, Barbour % (Auto) 6.3, Eos % (Auto) 3.0, Baso % (Auto) 0.3, Neut # (Auto) 10.7 H, Lymph # (Auto) 2.1, Barbour # (Auto) 0.9, Eos # (Auto) 0.4, Baso # (Auto) 0.0, Sodium 139, Potassium 3.9, Chloride 105, Carbon Dioxide 26, Anion Gap 11.9, BUN 12, Creatinine 0.60, Estimated Creat Clear 108, Estimated GFR 116, Est GFR ( Amer) 140, Glucose 121 H, Calcium 9.1, Total Bilirubin 1.3, AST 30, ALT 25, Alkaline Phosphatase 63, Total Protein 8.4 H, Albumin 4.8, Globulin 3.6 H, Albumin/Globulin Ratio 1.3, Serum HCG, Qual Negative 12/20/24 04:45: Urine Color Yellow, Urine Appearance Sl cloudy, Urine pH 6.0, Ur Specific Wilmore >= 1.030, Urine Protein Trace, Urine Glucose (UA) Negative, Urine Ketones Negative, Urine Blood Negative, Urine Nitrate Negative, Urine Bilirubin 1+ A, Urine Urobilinogen 1.0, Ur Leukocyte Esterase Negative, Urine RBC None, Urine WBC Occasional, Ur Squamous Epith Cells 5-10, Urine Bacteria 1+ 12/20/24 04:41 12/20/24 04:41 Orders (Tests/Meds): ED MEDICATIONS Generic Name Dose Route Start Last Admin Trade Name Freq PRN Reason Stop Dose Admin Lactated Ringer's 1,000 mls @ 999 mls/hr 12/20/24 05:30 12/20/24 05:35 Lactated Ringer's 1000 Ml Bag IV 12/20/24 06:30 999 mls/hr .Q1H1M KARLIE Administration Iopamidol 75 ml 12/20/24 05:27 12/20/24 05:27 Iopamidol-370 (76%);100ml Bottle IV 12/20/24 05:28 75 ml ONCE ONE Administration Sodium Chloride 10 ml 12/20/24 05:27 12/20/24 05:27 Sodium Chloride 0.9% 10ml Syr (Rad Only) IV 01/19/25 05:26 10 ml NEEDED PRN Administration Maintain IV Site Discontinued Medications Generic Name Dose Route Start Last Admin Trade Name Freq PRN Reason Stop Dose Admin Acetaminophen 1,000 mg 12/20/24 04:29 12/20/24 04:49 Acetaminophen 500mg Tab PO 12/20/24 04:30 1,000 mg ONCE ONE Administration Ketorolac Tromethamine 30 mg 12/20/24 04:29 12/20/24 04:49 Ketorolac 30mg/Ml Vial IV 12/20/24 04:30 30 mg ONCE ONE Administration Morphine Sulfate 4 mg 12/20/24 04:29 12/20/24 04:50 Morphine 4mg/Ml Syringe IV 12/20/24 04:30 4 mg ONCE ONE Administration Ondansetron HCl 4 mg 12/20/24 04:29 12/20/24 04:49 Ondansetron 4mg/2ml Vial IV 12/20/24 04:30 4 mg ONCE ONE Administration ORDERS Category Date Time Status Type and Screen Stat BBK 12/20/24 05:[address] abdomen pelvis w con Stat Cat Scan 12/20/24 04:29 Completed POCUS Point of Care (ER Only) Stat Exams 12/20/24 05:04 Ordered CBC w/Auto Diff [Complete Blood Count Auto Diff] Stat Lab 12/20/24 04:41 Completed CMP [Comprehensive Metabolic Panel] Stat Lab 12/20/24 04:41 Completed HCG Qualitative, Serum Stat Lab 12/20/24 04:41 Completed INR [Prothrombin Time INR] Stat Lab 12/20/24 05:39 Ordered UA [Urinalysis and Microscopic] Stat Lab 12/20/24 04:45 Completed Medical Decision Narrative: 34-year-old female with history of prior ovarian cysts, tubal ligation presents for severe right pelvic pain now radiating to her entire abdomen. History was obtained via interactive discussion with patient, family, chart review. On arrival, patient is [afebrile, hemodynamically stable, satting appropriately, alert, oriented x4, GCS 15], moving all extremities spontaneously. Full physical exam performed and significant for severe generalized abdominal tenderness Differential includes but is not limited to ruptured ovarian cyst, ovarian torsion, appendicitis, colitis. Patient was given morphine Toradol Zofran IV fluid bolus for symptomatic management and correction of underlying abnormalities. Workup initiated including CBC CMP UA hCG CT abdomen pelvis IV contrast. On re-evaluation, patient reports symptomatic improvement Laboratory workup independently interpreted by me and significant for stable hemoglobin, leukocytosis with white count of 14, unremarkable chemistries.. Imaging independently interpreted by me and significant for large volume intra- abdominal hemorrhage with blood extending to the liver and spleen. Active extract noted adjacent to the right ovary consistent with ruptured ovarian cyst that is actively bleeding.. See radiology read for full review of final results. Given patient history, exam and workup, patient's presentation most likely represents ruptured ovarian cyst with active bleeding. Interactive succussion was had with the RETAIL MERCHANDISER TECHNICIAN on-call who is coming in for emergent operative intervention. Procedures Risk/Benefits of Procedure(s) Were Explained: Yes Limited Ultrasound Indication:: Procedure: Ultrasound-guided IV Indication: Abdominal pain Description: Linear ultrasound probe was utilized to identify suitable vein. Images were saved to the patient's permanent record. A 20-gauge long IV was placed by me at bedside using direct ultrasound guidance. Procedure successful. Critical Care Critical Care Time Critical Care Time: Yes Attestation: On 12/20/24, the high probability of a clinically significant, sudden or life threatening deterioration of the following system(s) required my full and direct attention, intervention and personal management. The time I documented below is in addition to time spent performing reported procedures but includes the following listed in this critical care notation. Total Time Total Critical Care Time: 40
--- OUTSIDE RECORDS SUMMARY | 2024-12-20 04:38 | XMS_ITS | Encounter Summary ---
Author Organization Healthcare Address [address] [place] [address] Care Team Providers Care Bed Operator Name Role Phone Brian Narayan MD Primary Care Provider [phone] Encounter Details Date Type Department Care Team [...] PM EST Appointment Cardiac Imaging [address] [place] [phone] 04/12/2025 2:00 PM EST Office Visit [facility] [address] [place] [phone] Viet Gutierres MD [address] [place] [address] 09/10/2025 10:20 AM EDT Office Visit [facility] [address] [place] [address] Kenny Boyd MD [address] [place] [address] documented as of this encounter [...] documented as of this encounter Care Teams Bed Operator Relationship Specialty Start Date End Date Brian Narayan MD PCP - General 02/18/21 documented as of this encounter
--- OUTSIDE RECORDS SUMMARY | 2024-12-20 04:38 | XMS_ITS | Clinical Summary ---
Author Organization [facility] Address [address] [place] [address] Care Team Providers Care Dental Office Manager Name Role Phone Irma Reinoso APRN Primary Care Provider [phone] Susie Hogue MD Unavailable Allergies No known active allergies Medications warfarin (COUMADIN) 10 MG tabletIndicatio ns:[facility] (INR:2.5-3.5),I NR = 4.0 [...] (11/23/2019): Added automatically from request for surgery [id number] Generator change (10/25/2019) Missed 11/01/2018 Request for sterilization 11/01/2018 Congenital heart disease in adult 10/31/2018 High-risk 10/31/2018 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 Overview (06/07/2016): 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 car rental manager Subtherapeutic international normalized ratio (I NR) 05/08/2016 [...] this topic Medical Devices Implanted Type Area Lidder Device Identifier Shelf Expiration Date Model / Serial / Lot Medt- 4076 Capsurefix Novus Mri Surescan [id number] Pacemakers [employer] 4076 CAPSUREFIX NOVUS MRI SURESCAN / [id number] / Pacemaker Sylvia Dr Mri [id number] - [id number] Implanted:Qty : 1 on 10/25/2019 by Trino Coulter MD at [facility] Pacemakers Left: Chest Wall [employer] CARDIAC RHYTHM MGMT 01/06/2021 [id number] / [id number] / Medt- [id number] Sylvia Xt Dr Mri [id number] Implanted:05/2019 (Quantity not on file) Pacemakers [employer] [id number] SYLVIA XT DR MRI / [id number] / Explanted Type Area Lidder Device Identifier Shelf Expiration Date Model / Serial / Lot Medt- [id number] Adapta [id number] Implanted:06/2009 (Quantity not on file) Explanted:Qty: 1 on 10/25/2019 by Trino Coulter MD at [facility] Pacemakers [employer] [id number] ADAPTA / [id number] / Advance Directives * Full Code (Latest Code Status on File) Date Activated Date Inactivated Comments 10/31/2018 1:55 PM 11/06/2018 3:50 PM * Full Code Date Activated Date Inactivated Comments 05/07/2016 10:50 PM 05/08/2016 3:17 PM Care Teams Dental Office Manager Relationship Specialty Start Date End Date Irma Reinoso APRN [address] [place] [address] [place] [id number] PCP - General Nurse Practitioner Family 10/16/18 Susei Hogue MD [address] [place] [address] [facility] [address] [place] [address] PCP - OBGYN Obstetrics and Gynecology 10/16/18
--- OUTSIDE RECORDS SUMMARY | 2024-12-20 04:38 | XMS_ITS | Encounter Summary ---
Author Organization Healthcare Address [address] [place] [address] Care Team Providers Care Electric Meter Inspector Name Role Phone Brian Narayan MD Primary Care Provider Encounter Details Date Type Department Care Team (Late st Contact Info) Description 10/25/2024 Telephone Cardiac Imaging [address] [place] [address] Cherelle Gale Social History Tobacco Use Types [...] called and spoke with patient notifying The [employer] [facility] is not able to connect with the patient???s pacemaker. Patient is adept with phone and opened kanika, checked Blue Tooth, low data mode, and updates in settings. Unable to connect we request patient call [employer] Stay Connected at [phone] for support and f/u with [facility] [place] [facility] at [phone] with update.Thank you. documented in this encounter Plan of Treatment Upcoming Encounters Date Type Department Care Team (Late st Contact Info) Description 04/12/2025 1:00 PM EST Appointment Cardiac Imaging [address] [place] [phone] 04/12/2025 2:00 PM EST Office Visit [facility] [address] [phone] Viet Gutierres MD [address] [place] [phone] 09/10/2025 10:20 AM EDT Office Visit [facility] [address] [phone] Kenny Boyd MD [address] [place] [phone] documented as of this encounter Visit Diagnoses [...] documented as of this encounter Care Teams Electric Meter Inspector Relationship Specialty Start Date End Date Brian Narayan MD PCP - General 02/18/21 documented as of this encounter
--- OUTSIDE RECORDS SUMMARY | 2024-12-20 04:38 | XMS_ITS | Clinical Summary ---
Author Organization [facility] Address [address] [place] [address] Care Team Providers Care Hematology Technician Name Role Phone Brian Narayan MD Primary Care Provider [phone] Allergies No known active allergies Medications aspirin [...] (10/07/2020): Added automatically from request for surgery [id number] Generator change (10/25/2019) Supervision of high-risk 11/15/2018 Missed 11/01/2018 Request for sterilization 11/01/2018 Congenital heart disease in adult 10/31/2018 High-risk 10/31/2018 Pacemaker 10/17/2018 Anxiety 09/14/2016 Chronic headaches 09/14/2016 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 Overview (10/07/2020): Needs geomorphologist Subtherapeutic international normalized ratio (I NR) 05/08/2016 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 Chronic congestive heart failure 05/05/2016 Hypoglycemia 12/16/2015 Depression 12/11/2015 Eczema 12/11/2015 Insomnia 12/11/2015 Encounters Date Type Department Care Team Description 12/17/2024 9:52 AM EDT - 12/17/2024 11:59 PM EDT Hospital Encounter Cardiac Imaging [address] [place] [address] Pacemaker Discharge Disposition: Home or Self Care 12/17/2024 Travel 10/25/2024 Telephone Cardiac Imaging [address] [place] [address] Cherelle Gale from Last 3 Months Immunizations [...] PM EST Appointment Cardiac Imaging [address] [place] [address] 04/12/2025 2:00 PM EST Office Visit [facility] [address] [facility] [address] Viet Gutierres MD [address] [place] [address] 09/10/2025 10:20 AM EDT Office Visit [facility] [address] [facility] [phone] Kenny Boyd MD [address] [place] [address] Health Maintenance Due Date Last Done Comments [...] 09/03/2019 [facility]-Cervical Cancer Screening 2022 [facility]-HPV/Cotest 2022 [facility]-UNHHG-12 Vaccine (1 - season) 2023 [facility]-Influenza Vaccine [...] CARDIAC DEV ICE PROCEDURES Final Result * [place] Hepatitis C Antibody (11/10/2019 10:02 PM EDT) [place] Hepatitis C Ab NEGATIVE Reference Range: Negative SUNQUEST 11/10/2019 10:0 2 PM EDT 11/10/2019 10:25 PM EDT us Dawit Ely MD LAB BLOOD ORDERABLES Final Resu lt SUNQUEST from Last 3 Months or Most Recently Relevant to Health Maintenance Insurance [facility] [place] [address] Care Teams Hematology Technician Relationship Specialty Start Date End Date Brian Narayan MD PCP - General 02/18/21
[2024-12-20 04:49] LABS: Microscopic, Urine URINE MICROSCOPIC (MICROSCOPIC)
[2024-12-20] MEDS: KETOROLAC 30MG/ML VIAL 30 MG IV (04:49)
[2024-12-20] MEDS: ACETAMINOPHEN 500MG TAB 1000 MG PO (04:49)
[2024-12-20] MEDS: ONDANSETRON 4MG/2ML VIAL 4 MG IV (04:49)
[2024-12-20] MEDS: MORPHINE 4MG/ML SYRINGE 4 MG IV (04:50)
[2024-12-20 04:51] LABS: Hematocrit 38.6 % (37.0-47.0); Hemoglobin 13.1 g/dL (12.2-16.2); Immature Granulocytes % 0.3 %; Mean Corpuscular HGB Conc 33.9 g/dL (31.8-35.4); Mean Corpuscular Hemoglobin 30.0 pg (27.0-31.2); Mean Corpuscular Volume 88.3 fl (81-99); Nucleated Red Blood Cells % 0 %; Platelet Count 255 K/mm3 (142-424); Red Blood Count 4.37 M/mm3 (4.20-5.40); Red Cell Distribution Width-SD 40.3 fL; White Blood Count 14.2 K/mm3 (4.8-10.8)
[2024-12-20 04:59] LABS: Color,Urine YELLOW (Yellow); Glucose,Urine (UA) Negative (Negative); Ketones,Urine Negative (Negative); Leukocyte Esterase,Urine Negative (Negative); PH,Urine 6.0 (5.0-8.5); Protein,Urine TRACE (Negative); Specific Gravity, Urine >= 1.030 (1.005-1.030); Urobilinogen,Urine 1.0 EU/dl (0.2)
[2024-12-20 05:00] LABS: Albumin Level 4.8 g/dl (3.5-5.0); Chloride 105 mmol/L (98-107); Sodium 139 mmol/L (136-145)
[2024-12-20 05:01] LABS: Potassium 3.9 mmoL/L (3.5-5.1)
[2024-12-20 05:01] LABS: Bilirubin,Urine 1+ (Negative)
[2024-12-20 05:03] LABS: Alanine Aminotransferase 25 U/L (12-78); Albumin/Globulin Ratio 1.3 (1.1-1.8); Alkaline Phosphatase 63 U/L (38-126); Anion Gap 11.9 mEq/L (5-15); Aspartate Amino Transferase 30 U/L (14-36); Bilirubin,Total 1.3 mg/dl (0.2-1.3); Blood Urea Nitrogen 12 mg/dl (7-17); Carbon Dioxide 26 mmol/L (22.0-30.0); Creatinine Clearance Estimated 108 mL/min (50-200); Creatinine,Serum 0.60 mg/dl (0.52-1.04); Estimated Glomerular Filt Rate 116 ml/min (>60); GFR (African American) 140 ML/MIN (>60); Globulin 3.6 g/dL (1.3-3.2); Total Protein,Serum 8.4 g/dl (6.3-8.2)
[2024-12-20 05:04] LABS: Calcium 9.1 mg/dl (8.4-10.2); Glucose 121 mg/dl (74-100)
[2024-12-20 05:10] LABS: WBC,Urine Occasional #/hpf (0-3)
[2024-12-20 05:11] LABS: Bacteria,Urine 1+ /lpf
[2024-12-20 05:11] LABS: HCG Qualitative, Serum Negative (Negative)
[2024-12-20] MEDS: SODIUM CHLORIDE 0.9% 10ML SYR (RAD ONLY) 10 ML IV (05:27)
[2024-12-20] MEDS: IOPAMIDOL-370 (76%);100ML BOTTLE 75 ML IV (05:27)
[2024-12-20] MEDS: LACTATED RINGERS 1000ML 1,000 ML 999 ML IV (05:35)
[2024-12-20 06:01] LABS: INR 4.00 (0.9-1.1); Prothrombin Time 40.1 seconds (10.1-12.5)
--- NOTE | 2024-12-20 06:29 | P.HP_ITS ---
History of Present Illness *Admission Date: 12/20/24 *Reason for visit:: ruptured ovarian cyst *History of present illness: Philly Garcia is a pleasant 34-year-old female with history of tubal ligation, prior ovarian cyst rupture, presents for severe right lower quadrant abdominal pain/pelvic pain. She reports the pain started yesterday evening, and then became sharp and more severe prior to arrival. Reports it is 10 out of 10. Reports pain with deep breathing. Surgical hx is significant for D&C, tubal ligation, and diagnostic laparoscopy for ovarian cyst rutpure. Per chart review patient has a history of a mechanical heart valve and is on lifetime anticoagulation with warfarin [facility] Disclaimer: The information contained in this section may have been updated after the patient was seen, as this information can be updated by other users. Medical History (Updated 12/20/24 @ 05:44 by Tanvir Martinez MD) Injury of right middle finger Finger injury Toenail fungus Urinary tract infection Surgical History History of tubal ligation History of open heart surgery Family History Other Cancer Colon abnormality Hypertension Social History (Updated 12/20/24 @ 08:33 by eNlson Lee CRNA) Smoking Status: Never smoker alcohol intake: never substance use type: denies use current occupational status: other Travel in the last 8 weeks?: None household members: spouse housing: house Other Medical History Have you received the Flu Vaccine for this season: No Have you received the Pneumonia Vaccine: No Review of Systems Review of Systems Review of systems (narrative): Review of Systems Constitutional: Denies fever, chills, and sweats Eyes: Denies vision change/ pain Respiratory: Denies cough and shortness of breath Cardiovascular: Denies chest pain and lightheadedness Gastrointestinal: Admits abdominal pain. Denies nausea, vomiting. Genitourinary: Denies dysuria and incontinence Musculoskeletal: Denies shoulder pain and back pain Neurological: Denies change in speech or headaches Meds Home Medications and Allergies Home Medications ?Medication ?Instructions ?Recorded ?Confirmed ?Type aspirin 81 mg capsule 81 mg PO DAILY 01/25/2411/24 History fluticasone propionate 50 1 - 2 spray intranasal DAILY #16 01/25/24 12/18/24 Rx mcg/actuation nasal grams spray,suspension (Flonase Allergy Relief) sertraline 50 mg tablet (Zoloft) 50 mg PO DAILY #90 ta bs 10/22/24 12/18/24 Rx warfarin 4 mg tablet 4 mg PO DAILY #30 tabs 10/2212/18/24 Rx New Prescriptions to Start Prescriptions: Allergies Allergy/AdvReac Type Severity Reaction Status Date / Time No Known Allergies Allergy Verified 12/18/24 12:13 Exam Data for Last 24 hours Vital signs and Labs for Last 24 Hours: Temp Pulse Resp BP Pulse Ox O2 Del Method 97.6 F 74 18 104/59 L 98 Room Air 12/20/24 06:19 12/20/24 06:19 12/20/24 06:19 12/20/24 06:19 12/20/24 05:39 12/20/24 06:19 Laboratory Results - last 24 hr 12/20/24 02:14: PT 40.1 H, INR 4.00 H 12/20/24 04:41: WBC 14.2 H, RBC 4.37, Hgb 13.1, Hct 38.6, MCV 88.3, MCH 30.0, MCHC 33.9, RDW 12.4, Plt Count 255, MPV 9.8, Neut % (Auto) 75.3, Lymph % (Auto) 14.8, [place] % (Auto) 6.3, Eos % (Auto) 3.0, Baso % (Auto) 0.3, Neut # (Auto) 10.7 H, Lymph # (Auto) 2.1, [place] # (Auto) 0.9, Eos # (Auto) 0.4, Baso # (Auto) 0.0, Sodium 139, Potassium 3.9, Chloride 105, Carbon Dioxide 26, Anion Gap 11.9, BUN 12, Creatinine 0.60, Estimated Creat Clear 108, Estimated GFR 116, Est GFR ( Amer) 140, Glucose 121 H, Calcium 9.1, Total Bilirubin 1.3, AST 30, ALT 25, Alkaline Phosphatase 63, Total Protein 8.4 H, Albumin 4.8, Globulin 3.6 H, Albumin/Globulin Ratio 1.3, Serum HCG, Qual Negative 12/20/24 04:45: Urine Color Yellow, Urine Appearance Sl cloudy, Urine pH 6.0, Ur Specific Elwin >= 1.030, Urine Protein Trace, Urine Glucose (UA) Negative, Urine Ketones Negative, Urine Blood Negative, Urine Nitrate Negative, Urine Bilirubin 1+ A, Urine Urobilinogen 1.0, Ur Leukocyte Esterase Negative, Urine RBC None, Urine WBC Occasional, Ur Squamous Epith Cells 5-10, Urine Bacteria 1+ I & O for Last 24 hours: Intake & Output 12/17/24 12/18/24 12/19/24 12/20/24 23:59 23:59 23:59 23:59 Weight 112 lb Constitutional Constitutional: no acute distress *Routine HEENT Exam Head: Present normocephalic Eye: Present EOMI and PERRL ENT: Present mucous membranes moist *Routine Neck Exam Neck: Present supple; Absent lymphadenopathy *Routine Respiratory Exam Respiratory: Present CTA bilaterally *Routine Cardiovascular Exam Cardiovascular: Present RRR *Routine Abdominal Exam Abdominal: Present soft and normoactive bowel sounds; Absent tenderness *Routine Rectal Exam Rectal:: deferred *Routine Genitalia Exam Genitalia:: deferred *Routine Extremities Exam Extremities: Absent cyanosis, clubbing or edema *Routine Skin Exam Skin: Present warm; Absent rash *Routine Neurological Exam Neurological: Present alert and oriented X3 Assessment and Plan *Assessment and plan (1) Intraabdominal hemorrhage: Status: Acute Category: Medical Code(s): R58 - Hemorrhage, not elsewhere classified (2) Rupture of cyst of right ovary: Status: Acute Category: Medical Code(s): N83.201 - Unspecified ovarian cyst, right side (3) History of open heart surgery: Status: Acute Category: Surgical Code(s): Z98.890 - Other specified postprocedural states (4) Chronic anticoagulation: Status: Acute Category: Medical Code(s): 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 Discussed the risk of the surgery to include bleeding, infection, injury to the surrounding structures to include the bowel, bladder, ureters. Discussed the possibility of an oophorectomy. Discussed the possibility of an exploratory laparotomy. 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 With interactive discussion with pharmacy at the time that this was discovered the patient was being wheeled to the OR and p.o. vitamin K would have not provided adequate reversal. FFP and blood were on hold. The patient's vital signs were stable and her starting H/H were stable. we will discuss restarting anticoagulation plan with heme/onc. discussed warfarin plan with Yossi in pharmacy and we elected to proceed with a half dose of warfarin today and she will follow up with him tomorrow We will have her see hematology postop as she may need estrogen use surgical menopause and has an increased clot risk which would be further increased with estrogen replacement She will follow-up with me in 1 week
[2024-12-20] MEDS: BUPIVACAINE 0.5% W/EPI 1:200,000 30ML VIAL 30 ML IJ (06:44)
--- NOTE | 2024-12-20 08:32 | EXP.ANES.CKL ---
[facility] Disclaimer: The information contained in this section may have been updated after the patient was seen, as this information can be updated by other users. Medical History (Updated 12/20/24 @ 05:44 by Tanvir Martinez MD) Injury of right middle finger Finger injury Toenail fungus Urinary tract infection Surgical History History of tubal ligation History of open heart surgery Family History Other Cancer Colon abnormality Hypertension Social History Smoking Status: Never smoker alcohol intake: never substance use type: denies use current occupational status: other Travel in the last 8 weeks?: None household members: spouse housing: house [facility] Anesthesia Checklist Patient Identification Patient Identification: Arm Band and Family Structural Data Admitted From: Emergency Dept Planned Operative Procedure/s: Diagnostic Laparoscopy Consent for Planned Operative Procedure(s) Verified: Yes Verified Documents: Surgical Consent and History and Physical NPO Status Verified Time NPO: 00:00 Additional verifications Anesthesia Reactions: No Airway Assessment Mallampati Score:: Class II C-Spine Mobility Assessed: Yes Dentition: Good Dentition Neurological Assessment Level of Consciousness: Awake, Alert and Appropriate Anesthesia Plan Anesthesia Risk discussed: Yes Anesthesia Plan: Verified ASA Class: III (E) Anesthesia Type: General
--- NOTE | 2024-12-20 08:33 | P.PNANES_ITS ---
[facility] Anesthesia Record Part I Anesthesia Record I Intake, IV Amount: 1,500 Hydration: Adequate Estimated blood loss (mL): 1,000 (~10 cc surgical blood loss. Remaining EBL is from hemorrhagic ovarian cyst rupture) Urine output (mL): 0 Blood Products used (#): none Blood Pressure: 105/40 SaO2: 97 Pulse Rate: 84 Airway Patency: Patent Respiratory Rate: 16 Temperature: 97.8 F Patient is:: Drowsy and Stable Stable to PACU at:: 08:30
--- NOTE | 2024-12-20 09:10 | P.OP_ITS ---
Date of procedure: 12/20/24 Pre-op Diagnosis:: 1. Acute pelvic pain 2. History of mechanical heart valve on chronic anticoagulation with warfarin 3. Large intra-abdominal hemoperitoneum 4. CT imaging suggestive of persistent bleeding from a ruptured ovarian follicle 5. History of ruptured ovarian cyst Post-op Diagnosis:: 1. Acute pelvic pain 2. History of mechanical heart valve on chronic anticoagulation with warfarin 3. Large intra-abdominal hemoperitoneum 4. CT imaging suggestive of persistent bleeding from a ruptured ovarian follicle 5. History of ruptured ovarian cyst Procedure performed:: Right salpingo-oophorectomy Evacuation of over 1000 mL of hemoperitoneum Surgeon:: Abi Garcia DO AGRICULTURAL EDUCATION TEACHER:: Nelson Lee Anesthesia: GETA Estimated blood loss (mL): 1,100 Operative findings:: 1. Bimanual examination revealed an anteverted 6-week size uterus 2. Right ovary without significant ovarian cyst noted but with active arterial bleed coming from the ovary. There was approximately 1 L of clotted blood noted in the pelvis and up near the liver 3. There was blood noted around the liver. Normal-appearing uterus. Unable to visualize the left tube and ovary either secondary to surgical removal or dense adhesions. Filshie clip noted at the left uterine cornua. 4. There were adhesions noted extending from the left colon to the left pelvic sidewall and a strand of adhesion extending from the omentum to the anterior abdominal wall. The uterus appeared to be relatively free of adhesions and the adhesions appeared to be primarily from the history of a left ruptured ovarian cyst. Operative note:: The patient is a 34-year-old presenting with a diagnosis of hemoperitoneum with a bleeding right ovarian cyst. She presented to the emergency department with acute onset abdominal pain and peritoneal signs. Patient was consented to proceed with diagnostic laparoscopy and possible oophorectomy. The patient voiced understanding and all of her questions and concerns were addressed. The patient was taken to the operating room in stable condition. The patient was taken to the OR where she was placed under general anesthesia without difficulty for exploratory laparoscopy. She was then prepped and draped in the usual sterile fashion and placed in the dorsal lithotomy position. A preoperative bimanual examination revealed findings as above. An acorn uterine manipulator was placed vaginally for uterine manipulation. An in an out catheter was used to drain the bladder. Attention was then turned to the abdomen where a total of 20mL of 0.5% lidocaine with epinephrine was used to inject the abdominal incisions x3. A 5mm infraumbilical incision was made, under direct visualization the trocar was inserted, and access of the abdominal cavity was achieved. Initial pressure was 7 mmHg and pneumoperitoneum was created to 15 mmHg. An 8 mm port was placed in the left lower quadrant with careful attention to avoid the inferior epigastric vessels, this was placed under direct visualization. This process was repeated with a 5 mm port in the right lower quadrant. No evidence of injury to the bowel, omentum or surrounding structures appreciated. Examined the pelvis revealed a significant hemoperitoneum and dense adhesions from the colon to the left pelvic sidewall where the previous ruptured ovarian cyst had been. There were also some adhesions from the anterior abdominal wall at the infraumbilical point but they did not obstruct entry or the surgery. The abdomen was attempted to be suctioned free of blood clots. Ureter was visualized and noted to be distal from the operative field. The LigaSure was used to cauterize the IP ligament. The LigaSure was used to work serially removing the ovary and fallopian tube following it to the cornua of the uterus. The ovary was placed on the abdominal wall of the uterus between the bladder. The 8 mm incision was extended and a 12 mm trocar was placed. An Endo Catch bag was used to remove the ovary as well as several of the large clots that were not able to be suctioned out. The upper abdomen, diaphragm, and liver were examined and suctioned free of blood products. While pneumoperitoneum was maintained the pelvis was copiously irrigated and suctioned dry. Endo Catch bag was removed and passed off the operative field to be sent to allergy for further evaluation. A Chun Ordaz was used to close the fascial incision with a 0 Vicryl. Pneumoperitoneum was released and all instruments were removed under direct visualization. The 3 incisions were closed with 4-0 Monocryl and Dermabond. Cystoscopy: The cystoscope was placed in the bladder and the mario of the bladder were noted to be free of defect, suture, or injury. Bilateral ureteral jets were noted and noted to be brisk. No suspicion for ureteral injury The patient was cleaned. The patient tolerated the laparoscopic right salpingo- oophorectomy well without complications and was taken to the recovery room in stable condition. Condition: stable Disposition: same day Specimens:: Right ovary and fallopian tube Complications:: None
--- NOTE | 2024-12-20 13:14 | P.PNANES_ITS ---
[facility] Anesthesia Record Part II Anesthesia Record Part II Discharge Time: 09:00 Destination: Surgical Day Care (OP Surgery) PACU nurse assessment reviewed?: Yes Patient Condition:: Good Anesthesia Complications:: None Swallowing reflex intact?: Yes Airway Patency: Patent Cyanosis?: No Blood Pressure: 109/65 SaO2: 99 Respiratory Rate: 17 Pulse Rate: 67 Temperature: 97.9 F Mental Status: Alert & Oriented Pain level:: 0 Nausea and/or vomitting:: None Intake, IV Amount: 0 Hydration: Adequate
== END 2024-12-20 11:00 | disposition home or self-care (01) ==
LOC: ER 05:44 → OR 06:29
PROVIDERS: Emergency Provider Emergency Medicine; PCP Family Medicine; Visit Provider Obstetrics & Gynecology
PROC: (CPT 49320; principal; 2024-12-20 06:30)
DX: N83.201 Unspecified ovarian cyst, right side (principal); K66.1 Hemoperitoneum; N73.6 Female pelvic peritoneal adhesions (postinfective); K66.0 Peritoneal adhesions (postprocedural) (postinfection); Z79.01 Long term (current) use of anticoagulants; Z95.2 Presence of prosthetic heart valve; Z79.82 Long term (current) use of aspirin; Z79.899 Other long term (current) drug therapy
CPT/HCPCS: 58661; 74177; 80053; 81001; 84703; 85025; 85610; 86850; 99285; J1100; J1885; J1920; J2003; J2250; J2270; J2405; J2704; J3010; J7120; Q9967

== ENCOUNTER 2024-12-21 11:29 | Outpatient (CLI) | payer MEDICAID, SELFPAY ==
[2024-12-21 14:19] LABS: INR 5.64 (0.9-1.1); Prothrombin Time 55.1 seconds (10.1-12.5)
[2024-12-21 15:26] LABS: PHA INR Fingerstick 5.1 (0.9-1.1)
== END 2024-12-21 15:29 ==
PROVIDERS: PCP Family Medicine; Visit Provider Family Medicine
DX: Z79.01 Long term (current) use of anticoagulants (principal); Z95.2 Presence of prosthetic heart valve
CPT/HCPCS: 36415; 85610; 99211; G0463

== ENCOUNTER 2024-12-22 11:37 | Outpatient (CLI) | payer MEDICAID, SELFPAY ==
--- OUTSIDE RECORDS SUMMARY | 2024-12-17 09:52 | XMS_ITS | Encounter Summary ---
Author Organization Healthcare Address [address] [place] [address] Care Team Providers Care Weatherization And Housing Inspector Name Role Phone Brian Narayan MD Primary Care Provider [phone] Encounter Details Date Type Department Care Team (Latest Contact Info) Description 12/17/2024 9:52 AM EDT - 12/17/2024 11:59 PM EDT Hospital Encounter Cardiac Imaging [address] [place] [address] Pacemaker Discharge Disposition: Home or Self Care [...] EST Appointment Cardiac Imaging [address] [place] [address] 04/12/2025 2:00 PM EST Office Visit [facility] 800 [facility]. [address] [address] Viet Gutierres MD [address] [place] [phone] 09/10/2025 10:20 AM EDT Office Visit [facility] [address] [phone] Kenny Boyd MD [address] [place] [address] documented as of this encounter Procedures Procedure [...] documented as of this encounter Care Teams Weatherization And Housing Inspector Relationship Specialty Start Date End Date Brian Narayan MD PCP - General 02/18/21 documented as of this encounter
--- OUTSIDE RECORDS SUMMARY | 2024-12-22 11:40 | XMS_ITS | Clinical Summary ---
Author Organization [facility] Address [address] [place] [address] Care Team Providers Care Academic Support Coordinator Name Role Phone Irma Reinoso APRN Primary Care Provider [phone] Susie Hogue MD Unavailable [phone] Allergies No known active allergies Medications warfarin (COUMADIN) 10 MG tabletIndicatio ns:[facility] (INR:2.5-3.5),I NR = 4.0 [...] (11/23/2019): Added automatically from request for surgery [id number] Generator change (10/25/2019) Missed 11/01/2018 Request for sterilization 11/01/2018 Congenital heart disease in adult 10/31/2018 High-risk 10/31/2018 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 Overview (06/07/2016): 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 director biomedical engineering Subtherapeutic international normalized ratio (I NR) 05/08/2016 [...] this topic Medical Devices Implanted Type Area Processing Clerk Device Identifier Shelf Expiration Date Model / Serial / Lot Medt- 4076 Capsurefix Novus Mri Surescan [id number] Pacemakers [employer] 4076 CAPSUREFIX NOVUS MRI SURESCAN / [id number] / Pacemaker Sylvia Dr Mri [id number] - [id number] Implanted:Qty : 1 on 10/25/2019 by Trino Coulter MD at [facility] Pacemakers Left: Chest Wall [employer] CARDIAC RHYTHM MGMT 01/06/2021 [id number] / [id number] / Medt- [id number] Sylvia Xt Dr Mri [id number] Implanted:05/2019 (Quantity not on file) Pacemakers [employer] [id number] SYLVIA XT DR MRI / [id number] / Explanted Type Area Processing Clerk Device Identifier Shelf Expiration Date Model / Serial / Lot Medt- [id number] Adapta [id number] Implanted:06/2009 (Quantity not on file) Explanted:Qty: 1 on 10/25/2019 by Trino Coulter MD at [facility] Pacemakers [employer] [id number] ADAPTA / [id number] / Advance Directives * Full Code (Latest Code Status on File) Date Activated Date Inactivated Comments 10/31/2018 1:55 PM 11/06/2018 3:50 PM * Full Code Date Activated Date Inactivated Comments 05/07/2016 10:50 PM 05/08/2016 3:17 PM Care Teams Academic Support Coordinator Relationship Specialty Start Date End Date Irma Reinoso APRN [address] [place] [address] [place] [id number] PCP - General Nurse Practitioner Family 10/16/18 Susie Hogue MD [address] [place] [address] [facility] [address] [place] [address] PCP - OBGYN Obstetrics and Gynecology 10/16/18
--- OUTSIDE RECORDS SUMMARY | 2024-12-22 11:40 | XMS_ITS | Clinical Summary ---
Author Organization [facility] Address [address] 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 Chronic congestive heart failure 05/05/2016 Hypoglycemia 12/16/2015 Depression 12/11/2015 Eczema 12/11/2015 Insomnia 12/11/2015 Encounters Date Type Department Care Team Description 12/17/2024 9:52 AM EDT - 12/17/2024 11:59 PM EDT Hospital Encounter Cardiac Imaging [address] [place] [address] Pacemaker Discharge Disposition: Home or Self Care 12/17/2024 Travel 10/25/2024 Telephone Cardiac Imaging [address] [place] [address] Cherelle Gale from Last 3 Months Immunizations [...] PM EST Appointment Cardiac Imaging [address] [place] [address] 04/12/2025 2:00 PM EST Office Visit [facility] [address] [facility] [address] Viet Gutierres MD [address] [place] [address] 09/10/2025 10:20 AM EDT Office Visit [facility] [address] [facility] [address] Kenny Boyd MD [address] [place] [address] Health Maintenance Due Date Last Done Comments [...] 09/03/2019 [facility]-Cervical Cancer Screening 2022 [facility]-HPV/Cotest 2022 [id number] Vaccine (1 - season) 2023 [facility]-Influenza Vaccine [...] CARDIAC DEV ICE PROCEDURES Final Result * Dale Hepatitis C Antibody (11/10/2019 10:02 PM EDT) Dale Hepatitis C Ab NEGATIVE Reference Range: Negative SUNQUEST 11/10/2019 10:0 2 PM EDT 11/10/2019 10:25 PM EDT us Dawit Ely MD LAB BLOOD ORDERABLES Final Resu lt SUNQUEST from Last 3 Months or Most Recently Relevant to Health Maintenance Insurance [facility] MEDICAID Care Teams Stock Fitter Relationship Specialty Start Date End Date Brian Narayan MD PCP - General 02/18/21
--- OUTSIDE RECORDS SUMMARY | 2024-12-22 11:40 | XMS_ITS | Encounter Summary ---
Author Organization Healthcare Address [address] [place] [address] Care Team Providers Care Clinical Services Consultant Name Role Phone Brian Narayan MD Primary Care Provider [phone] Encounter Details Date Type Department Care Team [...] PM EST Appointment Cardiac Imaging [address] [place] [address] 04/12/2025 2:00 PM EST Office Visit [facility] [place] [address] [place] [address] Viet Gutierres MD [address] [place] [address] 09/10/2025 10:20 AM EDT Office Visit [facility] [place] [address] [place] [address] Kenny Boyd MD [address] [place] [address] documented as of this encounter [...] documented as of this encounter Care Teams Clinical Services Consultant Relationship Specialty Start Date End Date Brian Narayan MD PCP - General 02/18/21 documented as of this encounter
--- OUTSIDE RECORDS SUMMARY | 2024-12-22 11:40 | XMS_ITS | Encounter Summary ---
Author Organization [facility] Address [address] [place] [address] Care Team Providers Care Linter Tender Name Role Phone Brian Narayan MD Primary Care Provider [phone] Encounter Details Date Type Department Care Team (Late st Contact Info) Description 10/25/2024 Telephone Cardiac Imaging [address] [place] [address] Cherelle Gale Social History Tobacco Use Types [...] called and spoke with patient notifying The [employer] [facility] is not able to connect with the patient???s pacemaker. Patient is adept with phone and opened kanika, checked [employer] Tooth, low data mode, and updates in settings. Unable to connect we request patient call [employer] [facility] at [phone] for support and f/u with [facility] at [phone] with update.Thank you. documented in this encounter Plan of Treatment Upcoming Encounters Date Type Department Care Team (Late st Contact Info) Description 04/12/2025 1:00 PM EST Appointment Cardiac Imaging [address] [place] [address] 04/12/2025 2:00 PM EST Office Visit [facility] [place] [address] [phone] Viet Gutierres MD [address] [place] [phone] 09/10/2025 10:20 AM EDT Office Visit [facility] [place] [address] [phone] Kenny Boyd MD [address] [place] [address] documented as of this encounter Visit Diagnoses [...] documented as of this encounter Care Teams Linter Tender Relationship Specialty Start Date End Date Brian Narayan MD PCP - General 02/18/21 documented as of this encounter
[2024-12-22 11:56] LABS: Hematocrit 29.9 % (37.0-47.0); Hemoglobin 9.8 g/dL (12.2-16.2); Immature Granulocytes % 0.2 %; Mean Corpuscular HGB Conc 32.8 g/dL (31.8-35.4); Mean Corpuscular Hemoglobin 29.4 pg (27.0-31.2); Mean Corpuscular Volume 89.8 fl (81-99); Nucleated Red Blood Cells % 0 %; Platelet Count 176 K/mm3 (142-424); Red Blood Count 3.33 M/mm3 (4.20-5.40); Red Cell Distribution Width-SD 41.8 fL; White Blood Count 4.9 K/mm3 (4.8-10.8)
[2024-12-22 12:22] LABS: INR 2.84 (0.9-1.1); Prothrombin Time 29.2 seconds (10.1-12.5)
== END 2024-12-22 23:59 | disposition home or self-care (01) ==
LOC: LAB 11:38
PROVIDERS: Obstetrics & Gynecology; PCP Family Medicine; Visit Provider Family Medicine
DX: Z79.01 Long term (current) use of anticoagulants (principal); Z95.2 Presence of prosthetic heart valve
CPT/HCPCS: 36415; 85025; 85610

== ENCOUNTER 2024-12-23 12:28 | Emergency (ER) | payer MEDICAID, SELFPAY ==
--- OUTSIDE RECORDS SUMMARY | 2024-12-17 09:52 | XMS_ITS | Encounter Summary ---
Author Organization Healthcare Address [address] [place] [address] Care Team Providers Care Geospatial Analyst Name Role Phone Brian Narayan MD Primary Care Provider [phone] Encounter Details Date Type Department Care Team (Latest Contact Info) Description 12/17/2024 9:52 AM EDT - 12/17/2024 11:59 PM EDT Hospital Encounter Cardiac Imaging [address] [place] [address] Pacemaker Discharge Disposition: Home or Self Care [...] EST Appointment Cardiac Imaging [address] [place] [address] 04/12/2025 2:00 PM EST Office Visit [facility] 800 [facility]. [address] [address] Viet Gutierres MD [address] [place] [phone] 09/10/2025 10:20 AM EDT Office Visit [facility] [address] [phone] Kenny Boyd MD [address] [place] [address] documented as of this encounter Procedures Procedure [...] documented as of this encounter Care Teams Geospatial Analyst Relationship Specialty Start Date End Date Brian Narayan MD PCP - General 02/18/21 documented as of this encounter
--- NOTE | 2024-12-23 12:42 | ED_ITS ---
Discharge Plan Disposition Patient Disposition: Home, Self-Care Condition: Good Prescriptions Prescriptions: No Action sertraline [Zoloft] 50 mg tablet 50 mg PO DAILY Qty: 90 3RF Rx Instructions: to improve anxiety symptoms warfarin 4 mg tablet 4 mg PO DAILY Qty: 30 1RF oxycodone 5 mg tablet 5 mg PO Q6H PRN (Reason: pain) Qty: 10 0RF aspirin 81 mg Capsule 81 mg PO DAILY fluticasone propionate [Flonase Allergy Relief] 50 mcg/actuation spray,suspension 1 - 2 spray intranasal DAILY Qty: 16 0RF Rx Instructions: administer into each nostril daily sennosides [Senna Lax] 8.6 mg Tablet 8.6 mg PO BIDP PRN (Reason: Constipation) Qty: 60 2RF acetaminophen 500 mg tablet 500 mg PO Q6H PRN (Reason: fever or pain) Qty: 30 3RF simethicone 125 mg tablet 125 mg PO DAILY PRN (Reason: abdominal distention) Qty: 60 2RF Referrals Follow up/Referrals: Abi Garcia DO [Staff Physician, STAFF TECHNOLOGIST] - See instructions Trino Delgado MD [Staff Physician, Oncology] - See instructions Brian Narayan MD [Primary Care Provider, Family Practice] - See instructions Activity Restrictions/Add. Instructions Additional Instructions/Restrictions: Please return to the emergency department with any worsening signs or symptoms, please continue take all your medication as prescribed and follow your postoperative restrictions, please follow-up with STAFF TECHNOLOGIST in psychologist experimental in the upcoming days. Clinical Impressions Clinical Impression: Vaginal bleeding, Encounter for anticoagulation monitoring with international normalized ratio (INR) goal of 1.5-2.5 Print Language Print Language: Malian Discharge ED Provider: Maryann Flowers General Adult HPI <ANTONI Smith - Last Filed: 12/23/24 14:37> General Chief complaint: Dizziness Stated complaint: Sent by [facility] for dizzy; lightheaded Time Seen by Provider: 12/23/24 12:32 Mode of Arrival: Ambulatory Source of Information: Patient, Spouse and Medical Record Limitations: No Limitations History of Present Illness HPI narrative: 34-year-old female presents to the emergency department accompanied by her at the request of Pharm.D. for lightheadedness that started today, as well as some shortness of breath, patient is status post oratory laparotomy on 12/20/2024, for pelvic pain/ruptured ovarian cyst, with a large intra-abdominal hemoperitoneum, previous history of right salpingo-oophorectomy. Patient has presbycusis and is legally deaf , according to spouse at the bedside, spouse provides some of the history and performs ASL to the patient, lightheadedness started today generalized weakness as well as shortness of breath started today, the patient denies any fever chills chest pain, no abdominal pain, does have some abdominal soreness status post as stated above, has had some vaginal bleeding, that has been enough to soak through a pad, today, and ever since her procedure, has a urinary type symptomatology, denies any nausea vomiting constipation diarrhea, patient is a non-smoker, denies any alcohol or drug use, other past medical history is consistent with current anticoagulation therapy on warfarin, I was able to review the patient's previous INR through messages from her Pharm.D., INR yesterday was 2.2, but Pharm.D. at warfarin clinic states the patient's blood counts , dropped a little bit, no recorded number, other past medical history consistent with prior CABG, mitral valve replacement mechanical, triage vitals unremarkable. Please note that above description of symptoms, in this electronic medical record under categorization of recalled from ER triage doctor by RN are reflective of an initial nursing assessment, however, is not reflective of my full history and physical exam that was personally taken and clarified. Consequentially, this preceding description of symptoms, which may include the patient's categorized chief complaint in the EMR, do not reflect my personal clinical impression, and the ultimate description of history of present illness and patient stated complaints should be deferred to this section of the note. Unless stated otherwise or congruent with this section of the note, additional signs, symptoms, or incongruence should be interpreted as inaccurate with my clinical impression. Onset (ago): hour(s) Related Data Home Medications ?Medication ?Instructions ?Recorded ?Confirmed aspirin 81 mg capsule 81 mg PO DAILY 01/25/2411/24 Previous Rx's ?Medication ?Instructions ?Recorded fluticasone propionate 50 1 - 2 spray intranasal DAILY #16 01/25/24 mcg/actuation nasal grams spray,suspension (Flonase Allergy Relief) sertraline 50 mg tablet (Zoloft) 50 mg PO DAILY #90 ta bs 10/22/24 warfarin 4 mg tablet 4 mg PO DAILY #30 tabs 10/22 acetaminophen 500 mg tablet 500 mg PO Q6H PRN fever or pain 12/20/24 #30 tabs oxycodone 5 mg tablet 5 mg PO Q6H PRN pain #10 tab s 12/20/24 sennosides 8.6 mg tablet (Senna 8.6 mg PO BIDP PRN Con stipation 12/20/24 Lax) #60 tabs simethicone 125 mg tablet 125 mg PO DAILY PRN abdomina l 12/20/24 distention #60 tabs Allergies Allergy/AdvReac Type Severity Reaction Status Date / Time No Known Allergies Allergy Verified 12/18/24 12:13 [facility] <ANTONI Smith - Last Filed: 12/23/24 14:37> [facility] Disclaimer: The information contained in this section may have been updated after the patient was seen, as this information can be updated by other users. Medical History (Updated 12/23/24 @ 14:37 by ANTONI Smith) Injury of right middle finger Finger injury Toenail fungus Urinary tract infection Surgical History History of tubal ligation History of open heart surgery Family History Other Cancer Colon abnormality Hypertension Social History (Updated 12/20/24 @ 08:33 by Nelson Lee CRNA) Smoking Status: Never smoker alcohol intake: never substance use type: denies use current occupational status: other Travel in the last 8 weeks?: None household members: spouse housing: house Have you lived/traveled outside US in past 30 days?: No Contact w/someone who lives/traveled outside US past 30 days?: No Exposure to someone with infectious disease in past 14 days?: No Do you have a fever (greater than 100.4 F or 38 C)?: No Have you tested positive for COVID-19?: No Exposed to someone with COVID-19 in past 14 days?: No Do you have a sore throat?: No Do you have a cough?: No Do you have any weakness?: No Do you have any diarrhea?: No Are you experiencing any unusual bleeding?: No Do you have any muscle aches/pain?: No Do you have any abdominal pain?: No Are you experiencing loss of taste or smell?: No Other Medical History Have you received the Flu Vaccine for this season: No Have you received the Pneumonia Vaccine: No <ANTONI Smith - Last Filed: 12/23/24 14:37> ROS Obtained: Yes All systems reviewed & no additional complaints except as documented Physical Exam <ANTONI Smith - Last Filed: 12/23/24 14:37> General General appearance: alert and in no apparent distress Head Head exam: atraumatic and normocephalic Eye Eye exam: Present PERRL and EOMI ENT ENT exam: Present mucous membranes moist Neck Neck exam: Present normal inspection Chest Chest inspection: Present normal inspection and symmetric chest wall rise Respiratory Respiratory exam: Present normal lung sounds bilaterally; Absent respiratory distress, wheezes or stridor Cardiovascular Cardiovascular exam: Present regular rate and normal rhythm Abdominal Exam Abdominal exam: Present soft, tenderness and guarding; Absent rebound or rigidity Extremities Exam Extremities exam: Present normal inspection Neurological Exam Neurological exam: Present alert and oriented X3 Psychiatric Psychiatric exam: Present normal affect Skin Skin exam: Present warm and dry Medical Decision Making <ANTONI Smith - Last Filed: 12/23/24 14:37> Medical Records Medical records reviewed: Yes I reviewed the patient's medical records. Screening: Per USPSTF and CDC recommendations, given the prevalence of disease in our region, it is our hospital?s policy to screen for HIV and viral Hepatitis for all patients aged 18 and over and those with ongoing risk factors. Carlos Inquiry Pt receiving controlled substance: No Carlos was queried for this patient: No Vital Signs: 12/23/24 12:57 12/23/24 13:00 12/23/24 13:22 Temperature 98.7 F Temperature Source Oral Pulse Rate 70 71 Pulse Rate [Right Radial] 70 Respiratory Rate 16 Blood Pressure 105/62 L Blood Pressure [Right Arm] 129/58 L Blood Pressure Mean [Right Arm] 81 Blood Pressure Source Blood Pressure Source [Right Arm] Automatic Cuff Blood Pressure Position Blood Pressure Position [Right Arm] Supine 02 Sat by Pulse Oximetry 100 97 99 Oxygen Delivery Method Room Air 12/23/24 13:39 12/23/24 13:45 12/23/24 14:47 Temperature 98.1 F Temperature Source Oral Pulse Rate 65 64 76 Pulse Rate [Right Radial] Respiratory Rate 16 Blood Pressure 110/74 Blood Pressure [Right Arm] Blood Pressure Mean [Right Arm] Blood Pressure Source Automatic Cuff Blood Pressure Source [Right Arm] Blood Pressure Position Supine Blood Pressure Position [Right Arm] 02 Sat by Pulse Oximetry 99 100 Oxygen Delivery Method Room Air Lab Data Lab results reviewed: Yes I reviewed the patient's lab results. Lab Results 12/23/24 12:38: Urine Color Red, Urine Appearance Cloudy, Urine pH 8.0, Ur Specific [place] 1.010, Urine Protein 1+ A, Urine Glucose (UA) Negative, Urine Ketones Negative, Urine Blood 3+ A, Urine Nitrate Negative, Urine Bilirubin Negative, Urine Urobilinogen 0.2, Ur Leukocyte Esterase Negative, Urine RBC 20- 50, Urine WBC 3-5, Ur Squamous Epith Cells 5-10, Urine Bacteria Trace, Urine HCG, Qual Negative 12/23/24 12:52: WBC 5.5, RBC 3.59 L, Hgb 10.5 L, Hct 32.0 L, MCV 89.1, MCH 29.2, MCHC 32.8, RDW 12.5, Plt Count 203, MPV 9.8, Neut % (Auto) 61.7, Lymph % (Auto) 19.1, [place] % (Auto) 7.2, Eos % (Auto) 11.4, Baso % (Auto) 0.4, Neut # (Auto) 3.4, Lymph # (Auto) 1.1, [place] # (Auto) 0.4, Eos # (Auto) 0.6 H, Baso # (Auto) 0.0, PT 19.8 H, INR 1.87 H, APTT 29.9, Sodium 139, Potassium 3.8, Chloride 108 H , Carbon Dioxide 28, Anion Gap 6.8, BUN 9, Creatinine 0.60, Estimated Creat Clear 108, Estimated GFR 116, Est GFR ( Amer) 140, Glucose 89, Calcium 8.9, Magnesium 1.7, Total Bilirubin 0.7, AST 21, ALT 20, Alkaline Phosphatase 50, Troponin I < 0.01, NT-Pro-B Natriuret Pep 369 H, Total Protein 7.4, Albumin 4.2, Globulin 3.2, Albumin/Globulin Ratio 1.3, Lipase 41, HIV Ag/Ab Combo Qual Negative 12/23/24 12:52 12/23/24 12:52 Orders (Tests/Meds): ED MEDICATIONS Discontinued Medications Generic Name Dose Route Start Last Admin Trade Name Tamar PRN Reason Stop Dose Admin Iopamidol 75 ml 12/23/24 13:33 12/23/24 13:33 Iopamidol-370 (76%);100ml Bottle IV 12/23/24 13:34 75 ml ONCE ONE Administration Sodium Chloride 10 ml 12/23/24 13:33 12/23/24 13:33 Sodium Chloride 0.9% 10ml Syr (Rad Only) IV 12/23/24 13:34 10 ml ONCE ONE Administration ORDERS Category Date Time Status CT abdomen pelvis w con Stat Cat Scan 12/23/24 13:05 Completed Complete Blood Count Auto Diff Stat Lab 12/23/24 12:52 Completed Comprehensive Metabolic Panel Stat Lab 12/23/24 12:52 Completed HIV Combo Stat Lab 12/23/24 12:52 Completed Hepatitis C Ab Qual. W/ RFX Stat Lab 12/23/24 12:52 Received Lipase Stat Lab 12/23/24 12:52 Completed Magnesium Stat Lab 12/23/24 12:52 Completed NT Pro Brain Natriuretic Pep. Stat Lab 12/23/24 12:52 Completed PT INR [Prothrombin Time INR] Stat Lab 12/23/24 12:52 Completed PTT [Activated Partial Thrombo Time] Stat Lab 12/23/24 12:52 Completed Troponin I Stat Lab 12/23/24 12:52 Completed Urinalysis and Microscopic Stat Lab 12/23/24 12:38 Completed Urine , HCG Qual. Stat Lab 12/23/24 12:38 Completed Medical Decision Narrative: 34-year-old female presents the emergency department with lightheadedness and shortness of breath started today, differential diagnose include but not limited to, acute blood loss anemia, hypovolemia, post operative bleeding, acute UTI, cardiac arrhythmia, electrolyte status, ACS among others. I discussed patient case with attending physician Dr. Flowers Will obtain basic laboratory studies PT/INR PTT lipase magnesium level proBNP troponin urinalysis and urine hCG qualitative, will obtain CT and pelvis with contrast for further evaluation and EKG. CBC notable for 3 cytopenia 3.59, hemoglobin 10.5 hematocrit 32 PT is 19.8, INR is 1.87, PTT within normal limits CMP unremarkable proBNP is mildly elevated at 369, troponin is less than 0.01 lipase in normal limits otherwise grossly unremarkable CMP UA notable for 3+ hematuria 1+ proteinuria, negative nitrites, negative leukocyte esterase, 20-50 RBCs, 35 WBCs 5-10 squamous epithelial cells and trace bacteria. I reviewed the patient CT abdomen pelvis with contrast along the corresponding radiologic report, subcutaneous gas along the anterior abdomen wall likely from recent procedure, significantly decreased intra-abdominal hemorrhage mild pelvic ascites. I discussed this patient's case with the on-call STAFF TECHNOLOGIST Dr. Garcia who performed the procedure several days ago, discussed the imaging studies and patient's case with her over the phone, patient stable and hemoglobin/INR are improving, patient is cleared to be discharged home to self-care, hemodynamically stable throughout her time in the emergency department. She has follow-up with hematology oncology as well as STAFF TECHNOLOGIST this week. Patient family were given strict ED return precautions. Patient and family are in agreement with current treatment plan/discharge plan will keep follow-ups. <Maryann Folwers MD - Last Filed: 12/23/24 15:28> Vital Signs: 12/23/24 12:57 12/23/24 13:00 12/23/24 13:22 Temperature 98.7 F Temperature Source Oral Pulse Rate 70 71 Pulse Rate [Right Radial] 70 Respiratory Rate 16 Blood Pressure 105/62 L Blood Pressure [Right Arm] 129/58 L Blood Pressure Mean [Right Arm] 81 Blood Pressure Source Blood Pressure Source [Right Arm] Automatic Cuff Blood Pressure Position Blood Pressure Position [Right Arm] Supine 02 Sat by Pulse Oximetry 100 97 99 Oxygen Delivery Method Room Air 12/23/24 13:39 12/23/24 13:45 12/23/24 14:47 Temperature 98.1 F Temperature Source Oral Pulse Rate 65 64 76 Pulse Rate [Right Radial] Respiratory Rate 16 Blood Pressure 110/74 Blood Pressure [Right Arm] Blood Pressure Mean [Right Arm] Blood Pressure Source Automatic Cuff Blood Pressure Source [Right Arm] Blood Pressure Position Supine Blood Pressure Position [Right Arm] 02 Sat by Pulse Oximetry 99 100 Oxygen Delivery Method Room Air Lab Data Lab Results 12/23/24 12:38: Urine Color Red, Urine Appearance Cloudy, Urine pH 8.0, Ur Specific [place] 1.010, Urine Protein 1+ A, Urine Glucose (UA) Negative, Urine Ketones Negative, Urine Blood 3+ A, Urine Nitrate Negative, Urine Bilirubin Negative, Urine Urobilinogen 0.2, Ur Leukocyte Esterase Negative, Urine RBC 20- 50, Urine WBC 3-5, Ur Squamous Epith Cells 5-10, Urine Bacteria Trace, Urine HCG, Qual Negative 12/23/24 12:52: WBC 5.5, RBC 3.59 L, Hgb 10.5 L, Hct 32.0 L, MCV 89.1, MCH 29.2, MCHC 32.8, RDW 12.5, Plt Count 203, MPV 9.8, Neut % (Auto) 61.7, Lymph % (Auto) 19.1, [place] % (Auto) 7.2, Eos % (Auto) 11.4, Baso % (Auto) 0.4, Neut # (Auto) 3.4, Lymph # (Auto) 1.1, [place] # (Auto) 0.4, Eos # (Auto) 0.6 H, Baso # (Auto) 0.0, PT 19.8 H, INR 1.87 H, APTT 29.9, Sodium 139, Potassium 3.8, Chloride 108 H , Carbon Dioxide 28, Anion Gap 6.8, BUN 9, Creatinine 0.60, Estimated Creat Clear 108, Estimated GFR 116, Est GFR ( Amer) 140, Glucose 89, Calcium 8.9, Magnesium 1.7, Total Bilirubin 0.7, AST 21, ALT 20, Alkaline Phosphatase 50, Troponin I < 0.01, NT-Pro-B Natriuret Pep 369 H, Total Protein 7.4, Albumin 4.2, Globulin 3.2, Albumin/Globulin Ratio 1.3, Lipase 41, HIV Ag/Ab Combo Qual Negative Orders (Tests/Meds): ED MEDICATIONS Discontinued Medications Generic Name Dose Route Start Last Admin Trade Name Freq PRN Reason Stop Dose Admin Iopamidol 75 ml 12/23/24 13:33 12/23/24 13:33 Iopamidol-370 (76%);100ml Bottle IV 12/23/24 13:34 75 ml ONCE ONE Administration Sodium Chloride 10 ml 12/23/24 13:33 12/23/24 13:33 Sodium Chloride 0.9% 10ml Syr (Rad Only) IV 12/23/24 13:34 10 ml ONCE ONE Administration ORDERS Category Date Time Status CT abdomen pelvis w con Stat Cat Scan 12/23/24 13:05 Completed Complete Blood Count Auto Diff Stat Lab 12/23/24 12:52 Completed Comprehensive Metabolic Panel Stat Lab 12/23/24 12:52 Completed HIV Combo Stat Lab 12/23/24 12:52 Completed Hepatitis C Ab Qual. W/ RFX Stat Lab 12/23/24 12:52 Received Lipase Stat Lab 12/23/24 12:52 Completed Magnesium Stat Lab 12/23/24 12:52 Completed NT Pro Brain Natriuretic Pep. Stat Lab 12/23/24 12:52 Completed PT INR [Prothrombin Time INR] Stat Lab 12/23/24 12:52 Completed PTT [Activated Partial Thrombo Time] Stat Lab 12/23/24 12:52 Completed Troponin I Stat Lab 12/23/24 12:52 Completed Urinalysis and Microscopic Stat Lab 12/23/24 12:38 Completed Urine , HCG Qual. Stat Lab 12/23/24 12:38 Completed Medical Decision Narrative: 34-year-old female presents the emergency department with lightheadedness and shortness of breath started today, differential diagnose include but not limited to, acute blood loss anemia, hypovolemia, post operative bleeding, acute UTI, cardiac arrhythmia, electrolyte status, ACS among others. I discussed patient case with attending physician Dr. Flowers Will obtain basic laboratory studies PT/INR PTT lipase magnesium level proBNP troponin urinalysis and urine hCG qualitative, will obtain CT and pelvis with contrast for further evaluation and EKG. CBC notable for 3 cytopenia 3.59, hemoglobin 10.5 hematocrit 32 PT is 19.8, INR is 1.87, PTT within normal limits CMP unremarkable proBNP is mildly elevated at 369, troponin is less than 0.01 lipase in normal limits otherwise grossly unremarkable CMP UA notable for 3+ hematuria 1+ proteinuria, negative nitrites, negative leukocyte esterase, 20-50 RBCs, 35 WBCs 5-10 squamous epithelial cells and trace bacteria. I reviewed the patient CT abdomen pelvis with contrast along the corresponding radiologic report, subcutaneous gas along the anterior abdomen wall likely from recent procedure, significantly decreased intra-abdominal hemorrhage mild pelvic ascites. I discussed this patient's case with the on-call STAFF TECHNOLOGIST Dr. Garcia who performed the procedure several days ago, discussed the imaging studies and patient's case with her over the phone, patient stable and hemoglobin/INR are improving, patient is cleared to be discharged home to self-care, hemodynamically stable throughout her time in the emergency department. She has follow-up with hematology oncology as well as STAFF TECHNOLOGIST this week. Patient family were given strict ED return precautions. Patient and family are in agreement with current treatment plan/discharge plan will keep follow-ups. I was consulted by the NATY, and we discussed the complexity of problems being addressed. I approved the treatment and management plan for this patient's care in the emergency department, thus performing a substantial portion of the medical decision making. Maryann Flowers MD Critical Care <ANTONI Smith - Last Filed: 12/23/24 14:37> Critical Care Time Critical Care Time: No
--- OUTSIDE RECORDS SUMMARY | 2024-12-23 12:46 | XMS_ITS | Encounter Summary ---
Author Organization Healthcare Address [address] [place] [address] Care Team Providers Care Furrier Shop Supervisor Name Role Phone Brian Narayan MD Primary Care Provider [phone] Encounter Details Date Type Department Care Team [...] PM EST Appointment Cardiac Imaging [address] [place] [id number] 04/12/2025 2:00 PM EST Office Visit [facility] [address] [place] [id number] Viet Gutierres MD [address] [place] [address] 09/10/2025 10:20 AM EDT Office Visit [facility] [address] [place] [address] Kenny Boyd MD [address] [place] [address] documented as of this encounter [...] documented as of this encounter Care Teams Furrier Shop Supervisor Relationship Specialty Start Date End Date Brian Narayan MD PCP - General 02/18/21 documented as of this encounter
--- OUTSIDE RECORDS SUMMARY | 2024-12-23 12:46 | XMS_ITS | Clinical Summary ---
Author Organization [facility] Address [address] [place] [address] Care Team Providers Care Boarding House Manager Name Role Phone Irma Reinoso APRN Primary Care Provider [phone] Susie Hogue MD Unavailable [phone] Allergies No known active allergies Medications warfarin (COUMADIN) 10 MG tabletIndicatio ns:[facility] Mit[facility] Valve (INR:2.5-3.5),I NR = 4.0 per [...] (11/23/2019): Added automatically from request for surgery [id number] Generator change (10/25/2019) Missed 11/01/2018 Request for sterilization 11/01/2018 Congenital heart disease in adult 10/31/2018 High-risk 10/31/2018 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 Overview (06/07/2016): Needs carousel attendant Subtherapeutic international normalized ratio (I NR) 05/08/2016 [...] this topic Medical Devices Implanted Type Area Manager Clinical Research Device Identifier Shelf Expiration Date Model / Serial / Lot Medt- 4076 Capsurefix Novus Mri Surescan [id number] Pacemakers [employer] 4076 CAPSUREFIX NOVUS MRI SURESCAN / [id number] / Pacemaker Sylvia Dr Mri [id number] - [id number] Implanted:Qty : 1 on 10/25/2019 by Trino Coulter MD at [facility] Pacemakers Left: Chest Wall [employer] CARDIAC RHYTHM MGMT 01/06/2021 [id number] / [id number] / Medt- [id number] Sylvia Xt Dr Mri [id number] Implanted:05/2019 (Quantity not on file) Pacemakers [employer] [id number] SYLVIA XT DR MRI / [id number] / Explanted Type Area Manager Clinical Research Device Identifier Shelf Expiration Date Model / Serial / Lot Medt- [id number] Adapta [id number] Implanted:06/2009 (Quantity not on file) Explanted:Qty: 1 on 10/25/2019 by Trino Coulter MD at [facility] Pacemakers [employer] [id number] ADAPTA / [id number] / Advance Directives * Full Code (Latest Code Status on File) Date Activated Date Inactivated Comments 10/31/2018 1:55 PM 11/06/2018 3:50 PM * Full Code Date Activated Date Inactivated Comments 05/07/2016 10:50 PM 05/08/2016 3:17 PM Care Teams Boarding House Manager Relationship Specialty Start Date End Date Irma Reinoso APRN [address] [place] [address] [place] [id number] PCP - General Nurse Practitioner Family 10/16/18 Susie Hogue MD [address] [place] [address] [facility] [address] [place] [address] PCP - OBGYN Obstetrics and Gynecology 10/16/18
--- OUTSIDE RECORDS SUMMARY | 2024-12-23 12:46 | XMS_ITS | Encounter Summary ---
Author Organization Healthcare Address [address] [place] [address] Care Team Providers Care Heavy Equipment Technician Name Role Phone Brian Narayan MD Primary Care Provider Encounter Details Date Type Department Care Team (Late st Contact Info) Description 10/25/2024 Telephone Cardiac Imaging [address] [place] [address] Cherelle Gale Social History Tobacco Use Types [...] called and spoke with patient notifying [facility] is not able to connect with the patient???s pacemaker. Patient is adept with phone and opened kanika, checked [facility], low data mode, and updates in settings. Unable to connect we request patient call [facility] at [phone] for support and f/u with [facility] at [phone] with update.Thank you. documented in this encounter Plan of Treatment Upcoming Encounters Date Type Department Care Team (Late st Contact Info) Description 04/12/2025 1:00 PM EST Appointment Cardiac Imaging [address] [place] [address] 04/12/2025 2:00 PM EST Office Visit [facility] [place] [address] [phone] Viet Gutierres MD [address] [place] [address] 09/10/2025 10:20 AM EDT Office Visit [facility] [place] [address] [address] Kenny Boyd MD [address] [place] [address] documented as of this encounter Visit Diagnoses [...] documented as of this encounter Care Teams Heavy Equipment Technician Relationship Specialty Start Date End Date Brian Narayan MD PCP - General 02/18/21 documented as of this encounter
--- OUTSIDE RECORDS SUMMARY | 2024-12-23 12:46 | XMS_ITS | Clinical Summary ---
Author Organization [facility] Address [address] [place] [address] Care Team Providers Care Magisterial District Judge Name Role Phone Brian Narayan MD Primary Care Provider [phone] Allergies No known active allergies Medications aspirin [...] (10/07/2020): Added automatically from request for surgery [id number] Generator change (10/25/2019) Supervision of high-risk 11/15/2018 Missed 11/01/2018 Request for sterilization 11/01/2018 Congenital heart disease in adult 10/31/2018 High-risk 10/31/2018 Pacemaker 10/17/2018 Anxiety 09/14/2016 Chronic headaches 09/14/2016 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 Overview (10/07/2020): Needs programmer developer Subtherapeutic international normalized ratio (I NR) 05/08/2016 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 Chronic congestive heart failure 05/05/2016 Hypoglycemia 12/16/2015 Depression 12/11/2015 Eczema 12/11/2015 Insomnia 12/11/2015 Encounters Date Type Department Care Team Description 12/17/2024 9:52 AM EDT - 12/17/2024 11:59 PM EDT Hospital Encounter Cardiac Imaging [address] [place] [address] Pacemaker Discharge Disposition: Home or Self Care 12/17/2024 Travel 10/25/2024 Telephone Cardiac Imaging [address] [place] [address] Cherelle Gale from Last 3 Months Immunizations [...] PM EST Appointment Cardiac Imaging [address] [place] [address] 04/12/2025 2:00 PM EST Office Visit [facility] [address] [facility] [address] Viet Gutierres MD [address] [place] [address] 09/10/2025 10:20 AM EDT Office Visit [facility] [address] [facility]. [address] [address] Kenny Boyd MD [address] [place] [address] Health Maintenance Due Date Last Done Comments [...] 09/03/2019 [facility]-Cervical Cancer Screening 2022 [facility]-HPV/Cotest 2022 [id number] Vaccine (1 - season) 2023 [facility]-Influenza Vaccine [...] CARDIAC DEV ICE PROCEDURES Final Result * [place] Hepatitis C Antibody (11/10/2019 10:02 PM EDT) [place] Hepatitis C Ab NEGATIVE Reference Range: Negative SUNQUEST 11/10/2019 10:0 2 PM EDT 11/10/2019 10:25 PM EDT us Dawit Ely MD LAB BLOOD ORDERABLES Final Resu lt SUNQUEST from Last 3 Months or Most Recently Relevant to Health Maintenance Insurance [facility] MEDICAID Care Teams Magisterial District Judge Relationship Specialty Start Date End Date Brian Narayan MD PCP - General 02/18/21
[2024-12-23 12:57] VITALS: BP 129/58; PULSE 70; RESP 16; TEMP 37.1; O2SAT 100; BMI 23.3
[2024-12-23 13:00] VITALS: BP 105/62; PULSE 70; O2SAT 97
[2024-12-23 13:00] LABS: Microscopic, Urine URINE MICROSCOPIC (MICROSCOPIC)
[2024-12-23 13:04] LABS: Hematocrit 32.0 % (37.0-47.0); Hemoglobin 10.5 g/dL (12.2-16.2); Immature Granulocytes % 0.2 %; Mean Corpuscular HGB Conc 32.8 g/dL (31.8-35.4); Mean Corpuscular Hemoglobin 29.2 pg (27.0-31.2); Mean Corpuscular Volume 89.1 fl (81-99); Nucleated Red Blood Cells % 0 %; Platelet Count 203 K/mm3 (142-424); Red Blood Count 3.59 M/mm3 (4.20-5.40); Red Cell Distribution Width-SD 40.9 fL; White Blood Count 5.5 K/mm3 (4.8-10.8)
--- NOTE | 2024-12-23 13:05 | CT_ITS ---
PROCEDURE INFORMATION: Exam: CT Abdomen And Pelvis With Contrast Exam date and time: 12/23/2024 1:35 PM Age: 34 years old Clinical indication: Other: Vaginal bleeding, S/P 3 days ex lap TECHNIQUE: Imaging protocol: Computed tomography of the abdomen and pelvis with contrast. Radiation optimization: All CT scans at this facility use at least one of these dose optimization techniques: automated exposure control; mA and/or kV adjustment per patient size (includes targeted exams where dose is matched to clinical indication); or iterative reconstruction. Contrast material: ISOVUE; Contrast volume: 75 ml; Contrast route: IV; COMPARISON: CT ABDOMEN PELVIS W CON 12/20/2024 5:18 AM FINDINGS: Heart: Enlarged left ventricle partially visualized. Liver: Fatty infiltration of the liver. Gallbladder and biliary ducts: Normal. No calcified stones. No ductal dilation. Pancreas: Normal. No ductal dilation. Spleen: Normal. No splenomegaly. Adrenal glands: Normal. No mass. Kidneys and ureters: Normal. No hydronephrosis. Stomach and bowel: Unremarkable. No obstruction. No mucosal thickening. Appendix: No evidence of appendicitis. Intraperitoneal space: Significantly decreased intra-abdominal hemorrhage. Mild pelvic ascites. Vasculature: Unremarkable. No abdominal aortic aneurysm. Lymph nodes: Unremarkable. No enlarged lymph nodes. Urinary bladder: Unremarkable as visualized. Reproductive: Tubal ligation clips. Bones/joints: Unremarkable. No acute fracture. Soft tissues: Subcutaneous gas along the anterior abdominal wall, likely from recent procedure. IMPRESSION: 1. Subcutaneous gas along the anterior abdominal wall, likely from recent procedure. 2. Significantly decreased intra-abdominal hemorrhage. Mild pelvic ascites.
[2024-12-23 13:11] LABS: INR 1.87 (0.9-1.1); Prothrombin Time 19.8 seconds (10.1-12.5)
[2024-12-23 13:12] LABS: Albumin Level 4.2 g/dl (3.5-5.0); Chloride 108 mmol/L (98-107); Potassium 3.8 mmoL/L (3.5-5.1); Sodium 139 mmol/L (136-145)
[2024-12-23 13:15] LABS: Alanine Aminotransferase 20 U/L (12-78); Albumin/Globulin Ratio 1.3 (1.1-1.8); Alkaline Phosphatase 50 U/L (38-126); Anion Gap 6.8 mEq/L (5-15); Aspartate Amino Transferase 21 U/L (14-36); Bilirubin,Total 0.7 mg/dl (0.2-1.3); Blood Urea Nitrogen 9 mg/dl (7-17); Calcium 8.9 mg/dl (8.4-10.2); Carbon Dioxide 28 mmol/L (22.0-30.0); Creatinine Clearance Estimated 108 mL/min (50-200); Creatinine,Serum 0.60 mg/dl (0.52-1.04); Estimated Glomerular Filt Rate 116 ml/min (>60); GFR (African American) 140 ML/MIN (>60); Globulin 3.2 g/dL (1.3-3.2); Glucose 89 mg/dl (74-100); Lipase 41 U/L (23-300); Magnesium 1.7 mg/dl (1.6-2.3); Total Protein,Serum 7.4 g/dl (6.3-8.2)
--- NOTE | 2024-12-23 13:15 | ECG_ITS ---
APPROVED REPORT Exam: Resting ECG HR:64 bpm ECG Measurements Heart Rate 64 AXES QRSd 90 QRS -3 QT 408 T -34 QTc 418 Conclusion ATRIAL FIBRILLATION MODERATE VOLTAGE CRITERIA FOR LVH, CONSIDER NORMAL VARIANT [MEETS CRITERIA IN ONE OF: R(aVL), S(V1), R(V5), R(V5/V6)+S(V1)] NONSPECIFIC ST & T-WAVE ABNORMALITY ABNORMAL RHYTHM ECG UNCONFIRMED REPORT Electronically signed by : PARDEEP KUMAR, 12/24/2024 05:07:00
[2024-12-23 13:16] LABS: Activated Partial Thrombo Time 29.9 seconds (22.8-30.6)
[2024-12-23 13:22] VITALS: PULSE 71; O2SAT 99
[2024-12-23 13:25] LABS: NT Pro Brain Natriuretic Pep. 369 pg/mL (0-125)
[2024-12-23 13:33] LABS: Troponin I < 0.01 ng/ml (0.00-0.034)
[2024-12-23] MEDS: SODIUM CHLORIDE 0.9% 10ML SYR (RAD ONLY) 10 ML IV (13:33)
[2024-12-23] MEDS: IOPAMIDOL-370 (76%);100ML BOTTLE 75 ML IV (13:33)
[2024-12-23 13:39] VITALS: PULSE 65; O2SAT 99
[2024-12-23 13:39] LABS: Glucose,Urine (UA) Negative (Negative); Ketones,Urine Negative (Negative); Leukocyte Esterase,Urine Negative (Negative); PH,Urine 8.0 (5.0-8.5); Protein,Urine 1+ (Negative); Specific Gravity, Urine 1.010 (1.005-1.030); Urobilinogen,Urine 0.2 EU/dl (0.2)
[2024-12-23 13:45] VITALS: PULSE 64; O2SAT 100
[2024-12-23 13:45] LABS: Urine Pregnancy, HCG Qual. Negative (Negative)
[2024-12-23 14:05] LABS: Color,Urine Red (Yellow)
[2024-12-23 14:06] LABS: Bilirubin,Urine Negative (Negative)
[2024-12-23 14:07] LABS: Bacteria,Urine Trace /lpf; RBC,Urine 20-50 #/hpf (0-3)
[2024-12-23 14:47] VITALS: BP 110/74; PULSE 76; RESP 16; TEMP 36.7; O2SAT 99
[2024-12-23 15:25] LABS: Hepatitis C Ab Qual. W/ RFX NEGATIVE (Negative)
== END 2024-12-23 14:49 | disposition home or self-care (01) ==
PROVIDERS: Physician Assistant; Emergency Provider Student in an Organized Health Care Education/Training Program; PCP Family Medicine
DX: N93.9 Abnormal uterine and vaginal bleeding, unspecified (principal); R42 Dizziness and giddiness; Z51.81 Encounter for therapeutic drug level monitoring
CPT/HCPCS: 74177; 80053; 81001; 81025; 83690; 83735; 83880; 84484; 85025; 85610; 85730; 86803; 87389; 93005; 99284; Q9967

== ENCOUNTER 2024-12-25 12:00 | Outpatient (CLI) | payer MEDICAID, SELFPAY ==
--- OUTSIDE RECORDS SUMMARY | 2024-12-17 09:52 | XMS_ITS | Encounter Summary ---
Author Organization Healthcare Address [address] [place] [address] Care Team Providers Care Net Mender Name Role Phone Brian Narayan MD Primary Care Provider [phone] Encounter Details Date Type Department Care Team (Latest Contact Info) Description 12/17/2024 9:52 AM EDT - 12/17/2024 11:59 PM EDT Hospital Encounter Cardiac Imaging [address] [place] [address] Pacemaker Discharge Disposition: Home or Self Care [...] EST Appointment Cardiac Imaging [address] [place] [address] 04/12/2025 2:00 PM EST Office Visit [facility] 800 [facility]. [address] [address] Viet Gutierres MD [address] [place] [address] 09/10/2025 10:20 AM EDT Office Visit [facility] [address] [phone] Kenny Boyd MD [address] [place] [address] documented as of this encounter Procedures Procedure [...] documented as of this encounter Care Teams Net Mender Relationship Specialty Start Date End Date Brian Narayan MD PCP - General 02/18/21 documented as of this encounter
--- OUTSIDE RECORDS SUMMARY | 2024-12-25 12:03 | XMS_ITS | Clinical Summary ---
Author Organization [facility] Address [address] [place] [address] Care Team Providers Care Perioperative Assistant Name Role Phone Irma Reinoso APRN Primary Care Provider [phone] Susie Hogue MD Unavailable [phone] Allergies No known active allergies Medications warfarin (COUMADIN) 10 MG tabletIndicatio ns: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 Subtherapeutic international normalized ratio (I NR) [...] this topic Medical Devices Implanted Type Area Window Display Designer Device Identifier Shelf Expiration Date Model / Serial / Lot Medt- 4076 Capsurefix Novus Mri Surescan [id number] Pacemakers [employer] 4076 CAPSUREFIX NOVUS MRI SURESCAN / [id number] / Pacemaker Sylvia Dr Mri [id number] - [id number] Implanted:Qty : 1 on 10/25/2019 by Trino Coulter MD at [facility] Pacemakers Left: Chest Wall [employer]IC CARDIAC RHYTHM MGMT 01/06/2021 [id number] / [id number] / Medt- W1dr01 [place] Xt Dr Mri [id number] Implanted:05/2019 (Quantity not on file) Pacemakers [employer] [id number] SYLVIA XT DR MRI / [id number] / Explanted Type Area Window Display Designer Device Identifier Shelf Expiration Date Model / Serial / Lot Medt- Adsr01 Adapta [id number] Implanted:06/2009 (Quantity not on file) Explanted:Qty: 1 on 10/25/2019 by Trino Coulter MD at [facility] Pacemakers [employer] ADSR01 ADAPTA / [id number] / Advance Directives * Full Code (Latest Code Status on File) Date Activated Date Inactivated Comments 10/31/2018 1:55 PM 11/06/2018 3:50 PM * Full Code Date Activated Date Inactivated Comments 05/07/2016 10:50 PM 05/08/2016 3:17 PM Care Teams Perioperative Assistant Relationship Specialty Start Date End Date Irma Reinoso APRN [address] [place] [address] [place] [address] PCP - General Nurse Practitioner Family 10/16/18 Susie Hogue MD [address] [place] [address] [facility] [address] [place] [address] PCP - OBGYN Obstetrics and Gynecology 10/16/18
--- OUTSIDE RECORDS SUMMARY | 2024-12-25 12:03 | XMS_ITS | Clinical Summary ---
Author Organization [facility] Address [address] [place] [address] Care Team Providers Care Loan Funder Name Role Phone Brian Narayan MD Primary Care Provider [phone] Allergies No known active allergies Medications aspirin [...] (10/07/2020): Added automatically from request for surgery [id number] Generator change (10/25/2019) Supervision of high-risk 11/15/2018 Missed 11/01/2018 Request for sterilization 11/01/2018 Congenital heart disease in adult 10/31/2018 High-risk 10/31/2018 Pacemaker 10/17/2018 Anxiety 09/14/2016 Chronic headaches 09/14/2016 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 Overview (10/07/2020): Needs lining stuffer Subtherapeutic international normalized ratio (I NR) 05/08/2016 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 Chronic congestive heart failure 05/05/2016 Hypoglycemia 12/16/2015 Depression 12/11/2015 Eczema 12/11/2015 Insomnia 12/11/2015 Encounters Date Type Department Care Team Description 12/17/2024 9:52 AM EDT - 12/17/2024 11:59 PM EDT Hospital Encounter Cardiac Imaging [address] [place] [address] Pacemaker Discharge Disposition: Home or Self Care 12/17/2024 Travel 10/25/2024 Telephone Cardiac Imaging [address] [place] [address] Cherelle Gale from Last 3 Months Immunizations [...] PM EST Appointment Cardiac Imaging [address] [place] [address] 04/12/2025 2:00 PM EST Office Visit [facility] [address] [facility]. [address] [address] Viet Gutierres MD [address] [place] [address] 09/10/2025 10:20 AM EDT Office Visit [facility] [address] [facility]. [address] [address] Kenny Boyd MD [address] [place] [address] Health Maintenance Due Date Last Done Comments [...] 09/03/2019 [facility]-Cervical Cancer Screening 2022 [facility]-HPV/Cotest 2022 [id number] Vaccine (1 - season) 2023 [facility]-Influenza Vaccine [...] CARDIAC DEV ICE PROCEDURES Final Result * [place] Hepatitis C Antibody (11/10/2019 10:02 PM EDT) [place] Hepatitis C Ab NEGATIVE Reference Range: Negative SUNQUEST 11/10/2019 10:0 2 PM EDT 11/10/2019 10:25 PM EDT us Dawit Ely MD LAB BLOOD ORDERABLES Final Resu lt SUNQUEST from Last 3 Months or Most Recently Relevant to Health Maintenance Insurance [facility] MEDICAID Care Teams Loan Funder Relationship Specialty Start Date End Date Brian Narayan MD PCP - General 02/18/21
--- OUTSIDE RECORDS SUMMARY | 2024-12-25 12:03 | XMS_ITS | Encounter Summary ---
Author Organization Healthcare Address [address] [place] [address] Care Team Providers Care Criminal Intelligence Analyst Name Role Phone Brian Narayan MD Primary Care Provider [phone] Encounter Details Date Type Department Care Team [...] PM EST Appointment Cardiac Imaging [address] [place] [address] 04/12/2025 2:00 PM EST Office Visit [facility] [place] [address] [place] [address] Viet Gutierres MD [address] [place] [address] 09/10/2025 10:20 AM EDT Office Visit [facility] [place] [facility] [address] [place] [address] Kenny Boyd MD [address] [place] [address] documented as of this encounter [...] documented as of this encounter Care Teams Criminal Intelligence Analyst Relationship Specialty Start Date End Date Brian Narayan MD PCP - General 02/18/21 documented as of this encounter
[2024-12-25 12:20] LABS: Hematocrit 30.0 % (37.0-47.0); Hemoglobin 9.6 g/dL (12.2-16.2); Immature Granulocytes % 0.2 %; Mean Corpuscular HGB Conc 32.0 g/dL (31.8-35.4); Mean Corpuscular Hemoglobin 28.4 pg (27.0-31.2); Mean Corpuscular Volume 88.8 fl (81-99); Nucleated Red Blood Cells % 0 %; Platelet Count 231 K/mm3 (142-424); Red Blood Count 3.38 M/mm3 (4.20-5.40); Red Cell Distribution Width-SD 40.5 fL; White Blood Count 4.6 K/mm3 (4.8-10.8)
[2024-12-25 12:33] LABS: INR 2.68 (0.9-1.1); Prothrombin Time 27.7 seconds (10.1-12.5)
== END 2024-12-25 23:59 | disposition home or self-care (01) ==
LOC: LAB 12:01
PROVIDERS: PCP Family Medicine; Visit Provider Obstetrics & Gynecology
DX: Z79.01 Long term (current) use of anticoagulants (principal)
CPT/HCPCS: 36415; 85025; 85610

== ENCOUNTER 2025-01-02 09:21 | Outpatient (CLI) | payer MEDICAID, SELFPAY ==
--- OUTSIDE RECORDS SUMMARY | 2024-12-17 09:52 | XMS_ITS | Encounter Summary ---
Author Organization Healthcare Address [address] [place] [address] Care Team Providers Care Wicker Molded Candles Name Role Phone Brian Narayan MD Primary Care Provider [phone] Encounter Details Date Type Department Care Team (Latest Contact Info) Description 12/17/2024 9:52 AM EDT - 12/17/2024 11:59 PM EDT Hospital Encounter Cardiac Imaging [address] [place] [address] Pacemaker Discharge Disposition: Home or Self Care [...] EST Appointment Cardiac Imaging [address] [place] [address] 04/12/2025 2:00 PM EST Office Visit [facility] 800 [facility]. [address] [address] Viet Gutierres MD [address] [place] [address] 09/10/2025 10:20 AM EDT Office Visit [facility] [address] [phone] Kenny Byod MD [address] [place] [address] documented as of this encounter Procedures Procedure [...] documented as of this encounter Care Teams Wicker Molded Candles Relationship Specialty Start Date End Date Brian Narayan MD PCP - General 02/18/21 documented as of this encounter
--- OUTSIDE RECORDS SUMMARY | 2025-01-02 09:33 | XMS_ITS | Clinical Summary ---
Author Organization [facility] Address [address] 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 Chronic congestive heart failure 05/05/2016 Hypoglycemia 12/16/2015 Depression 12/11/2015 Eczema 12/11/2015 Insomnia 12/11/2015 Encounters Date Type Department Care Team Description 12/17/2024 9:52 AM EDT - 12/17/2024 11:59 PM EDT Hospital Encounter Cardiac Imaging [address] [place] [address] Pacemaker Discharge Disposition: Home or Self Care 12/17/2024 Travel 10/25/2024 Telephone Cardiac Imaging [address] [place] [address] Cherelle Gale from Last 3 Months Immunizations [...] PM EST Appointment Cardiac Imaging [address] [place] [address] 04/12/2025 2:00 PM EST Office Visit [facility] [address] [facility]. [address] [address] Viet Gutierres MD [address] [place] [address] 09/10/2025 10:20 AM EDT Office Visit [facility] [address] [facility]. [address] [address] Kenny Boyd MD [address] [place] [address] Health Maintenance Due Date Last Done Comments [...] 09/03/2019 [facility]-Cervical Cancer Screening 2022 [facility]-HPV/Cotest 2022 [id number] Vaccine (1 - season) 2024 [facility]-Influenza Vaccine (#1) 12/24/202404/06, 03/10/2020, 01/07/2015 [facility]-Depression [...] CARDIAC DEV ICE PROCEDURES Final Result * [place] Hepatitis C Antibody (11/10/2019 10:02 PM EDT) [place] Hepatitis C Ab NEGATIVE Reference Range: Negative SUNQUEST 11/10/2019 10:0 2 PM EDT 11/10/2019 10:25 PM EDT us Dawit Ely MD LAB BLOOD ORDERABLES Final Resu lt SUNQUEST from Last 3 Months or Most Recently Relevant to Health Maintenance Insurance [facility] MEDICAID Care Teams Auto Travel Counselor Relationship Specialty Start Date End Date Brian Narayan MD PCP - General 02/18/21
--- OUTSIDE RECORDS SUMMARY | 2025-01-02 09:33 | XMS_ITS | Clinical Summary ---
Author Organization [facility] Address [address] [place] [address] Care Team Providers Care Building Associate Name Role Phone Irma Reinoso APRN Primary Care Provider [phone] Susie Hogue MD Unavailable Allergies No known active allergies Medications warfarin (COUMADIN) 10 MG tabletIndicatio ns:[facility] Mitral Valve (INR:2.5-3.5),I NR = 4.0 per [...] (11/23/2019): Added automatically from request for surgery [id number] Generator change (10/25/2019) Missed 11/01/2018 Request for sterilization 11/01/2018 Congenital heart disease in adult 10/31/2018 High-risk 10/31/2018 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 Overview (06/07/2016): 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 liaison Subtherapeutic international normalized ratio (I NR) 05/08/2016 [...] this topic Medical Devices Implanted Type Area Operating Room Manager Device Identifier Shelf Expiration Date Model / Serial / Lot Medt- 4076 Capsurefix Novus Mri Surescan [id number] Pacemakers [employer] 4076 CAPSUREFIX NOVUS MRI SURESCAN / [id number] / Pacemaker [place] Dr Mri W1dr01 - [id number] Implanted:Qty : 1 on 10/25/2019 by Trino Coulter MD at [facility] Pacemakers Left: Chest Wall [employer]TR[employer]IC CARDIAC RHYTHM MGMT 01/06/2021 W1DR01 / [id number] / Medt- W1dr01 [place] Xt Dr Mri [id number] Implanted:05/2019 (Quantity not on file) Pacemakers [employer] W1DR01 SYLVIA XT DR MRI / [id number] / Explanted Type Area Operating Room Manager Device Identifier Shelf Expiration Date Model / Serial / Lot Medt- Adsr01 Adapta [id number] Implanted:06/2009 (Quantity not on file) Explanted:Qty: 1 on 10/25/2019 by Trino Coulter MD at [facility] Pacemakers [employer] ADSR01 ADAPTA / [id number] / Advance Directives * Full Code (Latest Code Status on File) Date Activated Date Inactivated Comments 10/31/2018 1:55 PM 11/06/2018 3:50 PM * Full Code Date Activated Date Inactivated Comments 05/07/2016 10:50 PM 05/08/2016 3:17 PM Care Teams Building Associate Relationship Specialty Start Date End Date Irma Reinoso APRN [address] [place] [address] [place] [address] PCP - General Nurse Practitioner Family 10/16/18 Susie Hogue MD [address] [place] [address] [facility] [address] [place] [address] PCP - OBGYN Obstetrics and Gynecology 10/16/18
--- OUTSIDE RECORDS SUMMARY | 2025-01-02 09:33 | XMS_ITS | Encounter Summary ---
Author Organization Healthcare Address [address] [place] [address] Care Team Providers Care Level Vial Inspector Name Role Phone Brian Narayan MD Primary Care Provider [phone] Encounter Details Date Type Department Care Team [...] PM EST Appointment Cardiac Imaging [address] [place] [address] 04/12/2025 2:00 PM EST Office Visit [facility] [place] [address] [place] [address] Viet Gutierres MD [address] [place] [address] 09/10/2025 10:20 AM EDT Office Visit [facility] [place] [address] [place] [address] Kenny Boyd MD [address] [place] [address] documented as of this encounter [...] documented as of this encounter Care Teams Level Vial Inspector Relationship Specialty Start Date End Date Brian Narayan MD PCP - General 02/18/21 documented as of this encounter
[2025-01-02 12:54] LABS: PHA INR Fingerstick 3.2 (0.9-1.1)
== END 2025-01-02 14:42 ==
LOC: ACC 09:21
PROVIDERS: PCP Family Medicine; Visit Provider Family Medicine
DX: Z79.01 Long term (current) use of anticoagulants (principal)
CPT/HCPCS: 85610; 99211; G0463

== ENCOUNTER 2025-01-08 13:32 | Outpatient (CLI) | payer MEDICAID, SELFPAY ==
--- OUTSIDE RECORDS SUMMARY | 2024-12-17 09:52 | XMS_ITS | Encounter Summary ---
Author Organization Healthcare Address [address] [place] [address] Care Team Providers Care Internet Webmaster Name Role Phone Brian Narayan MD Primary Care Provider [phone] Encounter Details Date Type Department Care Team (Latest Contact Info) Description 12/17/2024 9:52 AM EDT - 12/17/2024 11:59 PM EDT Hospital Encounter Cardiac Imaging [address] [place] [address] Pacemaker Discharge Disposition: Home or Self Care [...] EST Appointment Cardiac Imaging [address] [place] [address] 04/12/2025 2:00 PM EST Office Visit [facility] 800 [facility]. [address] [address] Viet Gutierres MD [address] [place] [address] 09/10/2025 10:20 AM EDT Office Visit [facility] [address] [phone] Kenny Boyd MD [address] [place] [address] documented as of this encounter Procedures Procedure [...] documented as of this encounter Care Teams Internet Webmaster Relationship Specialty Start Date End Date Brian Narayan MD PCP - General 02/18/21 documented as of this encounter
--- OUTSIDE RECORDS SUMMARY | 2025-01-08 13:39 | XMS_ITS | Clinical Summary ---
Author Organization [facility] Address [address] [place] [address] Care Team Providers Care Hand Edger Name Role Phone Brian Narayan MD Primary Care Provider [phone] Allergies No known active allergies Medications aspirin [...] (10/07/2020): Added automatically from request for surgery [id number] Generator change (10/25/2019) Supervision of high-risk 11/15/2018 Missed 11/01/2018 Request for sterilization 11/01/2018 Congenital heart disease in adult 10/31/2018 High-risk 10/31/2018 Pacemaker 10/17/2018 Anxiety 09/14/2016 Chronic headaches 09/14/2016 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 Overview (10/07/2020): Needs translator/interpreter Subtherapeutic international normalized ratio (I NR) 05/08/2016 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 Chronic congestive heart failure 05/05/2016 Hypoglycemia 12/16/2015 Depression 12/11/2015 Eczema 12/11/2015 Insomnia 12/11/2015 Encounters Date Type Department Care Team Description 12/17/2024 9:52 AM EDT - 12/17/2024 11:59 PM EDT Hospital Encounter Cardiac Imaging [address] [place] [address] Pacemaker Discharge Disposition: Home or Self Care 12/17/2024 Travel 10/25/2024 Telephone Cardiac Imaging [address] [place] [address] Cherelle Gale from Last 3 Months Immunizations [...] PM EST Appointment Cardiac Imaging [address] [place] [address] 04/12/2025 2:00 PM EST Office Visit [facility] [address] [facility]. [address] [address] Viet Gutierres MD [address] [place] [address] 09/10/2025 10:20 AM EDT Office Visit [facility] [address] [facility]. [address] [address] Kenny Boyd MD [address] [place] [address] Health Maintenance Due Date Last Done Comments [...] 09/03/2019 [facility]-Cervical Cancer Screening 2022 [facility]-HPV/Cotest 2022 [id number] Vaccine (1 - season) 2024 [facility]-Influenza Vaccine [...] CARDIAC DEV ICE PROCEDURES Final Result * [place] Hepatitis C Antibody (11/10/2019 10:02 PM EDT) [place] Hepatitis C Ab NEGATIVE Reference Range: Negative SUNQUEST 11/10/2019 10:0 2 PM EDT 11/10/2019 10:25 PM EDT us Dawit Ely MD LAB BLOOD ORDERABLES Final Resu lt SUNQUEST from Last 3 Months or Most Recently Relevant to Health Maintenance Insurance [facility] MEDICAID Care Teams Hand Edger Relationship Specialty Start Date End Date Brian Narayan MD PCP - General 02/18/21
--- OUTSIDE RECORDS SUMMARY | 2025-01-08 13:39 | XMS_ITS | Encounter Summary ---
Author Organization Healthcare Address [address] [place] [address] Care Team Providers Care Formula Clerk Name Role Phone Brian Narayan MD Primary Care Provider [phone] Encounter Details Date Type Department Care Team [...] EST Appointment Cardiac Imaging [address] [place] [address] 04/12/2025 2:00 PM EST Office Visit [facility] [place] [address] [place] [address] Viet Gutierres MD [address] [place] [address] 09/10/2025 10:20 AM EDT Office Visit [facility] [place] [address] [place] [address] Kenny Boyd MD [address] [place] [address] documented as of this encounter [...] documented as of this encounter Care Teams Formula Clerk Relationship Specialty Start Date End Date Brian Narayan MD PCP - General 02/18/21 documented as of this encounter
[2025-01-08 14:41] LABS: Hematocrit 37.0 % (37.0-47.0); Hemoglobin 12.3 g/dL (12.2-16.2); Mean Corpuscular HGB Conc 33.2 g/dL (31.8-35.4); Mean Corpuscular Hemoglobin 29.4 pg (27.0-31.2); Mean Corpuscular Volume 88.3 fl (81-99); Platelet Count 288 K/mm3 (142-424); Red Blood Count 4.19 M/mm3 (4.20-5.40); White Blood Count 5.3 K/mm3 (4.8-10.8)
[2025-01-08 14:58] LABS: INR 1.98 (0.9-1.1); Prothrombin Time 20.9 seconds (10.1-12.5)
[2025-01-08 15:10] LABS: RBC Morphology Normal; Total Cells Counted 100
== END 2025-01-08 23:59 | disposition home or self-care (01) ==
PROVIDERS: PCP Family Medicine; Visit Provider Obstetrics & Gynecology
DX: E89.40 Asymptomatic postprocedural ovarian failure (principal); Z79.890 Hormone replacement therapy; Z51.81 Encounter for therapeutic drug level monitoring; Z79.01 Long term (current) use of anticoagulants
CPT/HCPCS: 36415; 85007; 85014; 85018; 85048; 85049; 85610

== ENCOUNTER 2025-02-08 12:16 | Outpatient (CLI) | payer MEDICAID, SELFPAY ==
--- OUTSIDE RECORDS SUMMARY | 2024-12-17 09:52 | XMS_ITS | Encounter Summary ---
Author Organization Healthcare Address [address] [place] [address] Care Team Providers Care Airflight Attendants Supervisor Name Role Phone Brian Narayan MD Primary Care Provider [phone] Encounter Details Date Type Department Care Team (Latest Contact Info) Description 12/17/2024 9:52 AM EDT - 12/17/2024 11:59 PM EDT Hospital Encounter Cardiac Imaging [address] [place] [address] Pacemaker Discharge Disposition: Home or Self Care [...] EST Appointment Cardiac Imaging [address] [place] [address] 04/12/2025 2:00 PM EST Office Visit [facility] 800 [facility]. [address] [address] Viet Gutierres MD [address] [place] [address] 09/10/2025 10:20 AM EDT Office Visit [facility] [address] [phone] Kenny Boyd MD [address] [place] [address] documented as of this encounter Procedures Procedure [...] documented as of this encounter Care Teams Airflight Attendants Supervisor Relationship Specialty Start Date End Date Brian Narayan MD PCP - General 02/18/21 documented as of this encounter
--- OUTSIDE RECORDS SUMMARY | 2025-02-08 12:19 | XMS_ITS | Encounter Summary ---
Author Organization Healthcare Address [address] [place] [address] Care Team Providers Care Physical Therapy Teacher Name Role Phone Brian Narayan MD Primary Care Provider [phone] Encounter Details Date Type Department Care Team [...] PM EST Appointment Cardiac Imaging [address] [place] [address] 04/12/2025 2:00 PM EST Office Visit [facility] [place] [facility] [address] [place] [address] Viet Gutierres MD [address] [place] [address] 09/10/2025 10:20 AM EDT Office Visit [facility] [place] [facility] [address] [place] [address] Kenny Boyd MD [address] [place] [address] documented as of this encounter [...] documented as of this encounter Care Teams Physical Therapy Teacher Relationship Specialty Start Date End Date Brian Narayan MD PCP - General 02/18/21 documented as of this encounter
--- OUTSIDE RECORDS SUMMARY | 2025-02-08 12:19 | XMS_ITS | Clinical Summary ---
Author Organization [facility] Address [address] [place] [address] Care Team Providers Care Title Assistant Name Role Phone Irma Reinoso APRN Primary Care Provider [phone] Susie Hogue MD Unavailable Allergies No known active allergies Medications warfarin (COUMADIN) 10 MG tabletIndicatio ns:[facility] (INR:2.5-3.5),I NR = [...] (11/23/2019): Added automatically from request for surgery [id number] Generator change (10/25/2019) Missed 11/01/2018 Request for sterilization 11/01/2018 Congenital heart disease in adult 10/31/2018 High-risk 10/31/2018 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 Overview (06/07/2016): Needs site interpreter Subtherapeutic international normalized ratio (I NR) [...] this topic Medical Devices Implanted Type Area Statistical Methods Teacher Device Identifier Shelf Expiration Date Model / Serial / Lot Medt- 4076 Capsurefix Novus Mri Surescan [id number] Pacemakers [employer] 4076 CAPSUREFIX NOVUS MRI SURESCAN / [id number] / Pacemaker Sylvia Dr Mri [id number] - [id number] Implanted:Qty : 1 on 10/25/2019 by Trino Coulter MD at [facility] Pacemakers Left: Chest Wall [employer] CARDIAC RHYTHM MGMT 01/06/2021 [id number] / [id number] / Medt- [id number] [place] Xt Dr Mri [id number] Implanted:05/2019 (Quantity not on file) Pacemakers [employer] [id number] SYLVIA XT DR MRI / [id number] / Explanted Type Area Statistical Methods Teacher Device Identifier Shelf Expiration Date Model / Serial / Lot Medt- Adsr01 Adapta [id number] Implanted:06/2009 (Quantity not on file) Explanted:Qty: 1 on 10/25/2019 by Trino Coulter MD at [facility] Pacemakers [employer] [id number] ADAPTA / [id number] / Advance Directives * Full Code (Latest Code Status on File) Date Activated Date Inactivated Comments 10/31/2018 1:55 PM 11/06/2018 3:50 PM * Full Code Date Activated Date Inactivated Comments 05/07/2016 10:50 PM 05/08/2016 3:17 PM Care Teams Title Assistant Relationship Specialty Start Date End Date Irma Reinoso APRN [address] [place] [address] [place] [id number] PCP - General Nurse Practitioner Family 10/16/18 Susie Hogue MD [address] [place] [address] [facility] [address] [place] [address] PCP - OBGYN Obstetrics and Gynecology 10/16/18
--- OUTSIDE RECORDS SUMMARY | 2025-02-08 12:19 | XMS_ITS | Clinical Summary ---
Author Organization [facility] Address [address] [place] [address] Care Team Providers Care Volunteer Fire Fighter Name Role Phone Brian Narayan MD Primary Care Provider [phone] Allergies No known active allergies Medications aspirin [...] viral syndrome 05/08/2024 Atypical chest pain 05/08/2024 Pain due to onychomycosis of toenails of both fe et 05/08/2024 Pincer nail deformity 05/08/2024 Strep throat 05/08/2024 Onychomycosis 05/08/2024 Regular astigmatism, bilateral 09/15/2023 S/P CABG x 1 01/18/2020 Stenosis of left anterior descending artery 12/25 H/O mitral valve replacement with mechanical janel ve 11/23/2019 Overview (10/07/2020): S/P Mitral valve replacement with [address] [place] mechanical valve (03/21/2000) Sick sinus syndrome 11/23/2019 Tubal occlusion 11/23/2019 Overview (10/07/2020): laparoscopic bilateral tubal occlusion (11/03/2019) Unspecified complication of cardiac and vascular prosthetic device, implant and graft, initial encounter 11/13/2019 Unspecified hearing loss, unspecified ear 2019 Pacemaker battery depletion 10/22/2019 Overview (10/07/2020): Added automatically from request for surgery [id number] Generator change (10/25/2019) Supervision of high-risk 11/15/2018 Missed 11/01/2018 Request for sterilization 11/01/2018 Congenital heart disease in adult 10/31/2018 High-risk 10/31/2018 Pacemaker 10/17/2018 Anxiety 09/14/2016 Chronic headaches 09/14/2016 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 Overview (10/07/2020): Needs beeswax bleacher Subtherapeutic international normalized ratio (I NR) 05/08/2016 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 Chronic congestive heart failure 05/05/2016 Hypoglycemia 12/16/2015 Depression 12/11/2015 Eczema 12/11/2015 Resolved Problems Problem Noted Date Diagnosed Date Resolved Date COVID-19 05/08/2024 01/13/2025 Flu-like symptoms 05/08/2024 01/13/2025 Exposure to 2019 novel coronavirus 05/08/2024 01/13/2025 Pharyngitis 05/08/2024 01/13/2025 Rash 05/08/2024 01/13/2025 UTI (urinary tract infection) 05/08/2024 01/13/2025 Viral upper respiratory trac t infection with cough 05/08/2024 01/13/2025 H/O dilation and curettage 11/23/2019 0 01/13/2025 Overview (10/07/2020): (11/02/2018) History of open heart surgery 11/23/2019 01/13/2025 Overview (10/07/2020): S/P Mitral valvuloplasty for severe MR (05/21/1993) S/P coronary artery surgery. with pericardial patch of left coronary ostial stenosis and PRICE bypass to LAD (01/21/1993). Insomnia 12/11/2015 01/13/2025 Encounters Date Type Department Care Team Description 12/17/2024 9:52 AM EDT - 12/17/2024 11:59 PM EDT Hospital Encounter Cardiac Imaging [address] [place] [address] Pacemaker Discharge Disposition: Home or Self Care 12/17/2024 Travel from Last 3 Months Immunizations Immunization [...] Upcoming Encounters Date Type Department Care Team ([facility] st Contact Info) Description 04/12/2025 1:00 PM EST Appointment Cardiac Imaging [address] [place] [address] 04/12/2025 2:00 PM EST Office Visit [facility] [place] [address] [address] Viet Gutierres MD [address] [place] [phone] 09/10/2025 10:20 AM EDT Office Visit [facility] [address] [address] Kenny Boyd MD [address] [place] [address] Health Maintenance Due Date Last Done Comments [...] 09/03/2019 [facility]-Cervical Cancer Screening 2022 [facility]-HPV/Cotest 2022 [id number] Vaccine ( - season) 2024 [facility]-Influenza Vaccine (#1) 12/24/202404/06, [...] CARDIAC DEV ICE PROCEDURES Final Result * [place] Hepatitis C Antibody (11/10/2019 10:02 PM EDT) [place] Hepatitis C Ab NEGATIVE Reference Range: Negative SUNQUEST 11/10/2019 10:0 2 PM EDT 11/10/2019 10:25 PM EDT us Dawit Ely MD LAB BLOOD ORDERABLES Final Resu lt SUNQUEST from Last 3 Months or Most Recently Relevant to Health Maintenance Insurance [facility] MEDICAID Care Teams Volunteer Fire Fighter Relationship Specialty Start Date End Date Brian Narayan MD PCP - General 02/18/21
[2025-02-08 13:39] LABS: PHA INR Fingerstick 2.6 (0.9-1.1)
== END 2025-02-08 13:45 ==
LOC: ACC 12:17
PROVIDERS: PCP Family Medicine; Visit Provider Family Medicine
DX: Z79.01 Long term (current) use of anticoagulants (principal); Z95.2 Presence of prosthetic heart valve
CPT/HCPCS: 85610; 99211; G0463

== ENCOUNTER 2025-03-15 10:54 | Emergency (ER) | payer MEDICAID, SELFPAY ==
[2025-03-15 11:00] VITALS: BP 115/61; PULSE 78; O2SAT 100
[2025-03-15 11:01] VITALS: BP 115/61; PULSE 83; RESP 18; TEMP 36.8; O2SAT 100; BMI 24.6
--- OUTSIDE RECORDS SUMMARY | 2025-03-15 11:04 | XMS_ITS | Clinical Summary ---
Author Organization [facility] Address [address] [place] [address] Care Team Providers Care Patient Relations Representative Name Role Phone Irma Reinoso APRN Primary Care Provider [phone] Susie Hogue MD Unavailable [phone] Allergies No known active allergies Medications warfarin (COUMADIN) 10 MG tabletIndicatio ns:[facility] Mitral Valve (INR:2.5-3.5),I NR = 4.0 per [...] (11/23/2019): Added automatically from request for surgery [id number] Generator change (10/25/2019) Missed 11/01/2018 Request for sterilization 11/01/2018 Congenital heart disease in adult 10/31/2018 High-risk 10/31/2018 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 Overview (06/07/2016): Needs knitting demonstrator Subtherapeutic international normalized ratio (I NR) 05/08/2016 [...] this topic Medical Devices Implanted Type Area Hydramatic Specialist Device Identifier Shelf Expiration Date Model / Serial / Lot Medt- 4076 Capsurefix Novus Mri Surescan [id number] Pacemakers [employer] 4076 CAPSUREFIX NOVUS MRI SURESCAN / [id number] / Pacemaker Sylvia Dr Mri [id number] - [id number] Implanted:Qty : 1 on 10/25/2019 by Trino Coulter MD at [facility] Pacemakers Left: Chest Wall [employer] CARDIAC RHYTHM MGMT 01/06/2021 W1DR01 / [id number] / Medt- W1dr01 [place] Xt Dr Mri [id number] Implanted:05/2019 (Quantity not on file) Pacemakers [employer] W1DR01 SYLVIA XT DR MRI / [id number] / Explanted Type Area Hydramatic Specialist Device Identifier Shelf Expiration Date Model / Serial / Lot Medt- Adsr01 Adapta [id number] Implanted:06/2009 (Quantity not on file) Explanted:Qty: 1 on 10/25/2019 by Trino Coulter MD at [facility] Pacemakers [employer] ADSR01 ADAPTA / [id number] / Advance Directives * Full Code (Latest Code Status on File) Date Activated Date Inactivated Comments 10/31/2018 1:55 PM 11/06/2018 3:50 PM * Full Code Date Activated Date Inactivated Comments 05/07/2016 10:50 PM 05/08/2016 3:17 PM Care Teams Patient Relations Representative Relationship Specialty Start Date End Date Irma Reinoso APRN [address] [place] [address] [place] [id number] PCP - General Nurse Practitioner Family 10/16/18 Susie Hogue MD [address] [place] [address] [facility] [address] [place] [address] PCP - OBGYN Obstetrics and Gynecology 10/16/18
--- OUTSIDE RECORDS SUMMARY | 2025-03-15 11:04 | XMS_ITS | Clinical Summary ---
Author Organization [facility] Address [address] 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 [address] [address] Viet Gutierres MD [address] [place] [address] 09/10/2025 10:20 AM EDT Office Visit [facility] [address] [facility]. [address] [address] Kenny Boyd MD [address] [place] [address] Health Maintenance Due Date Last Done Comments [...] 09/03/2019 [facility]-Cervical Cancer Screening 2022 [facility]-HPV/Cotest 2022 [id number] Vaccine (1 - season) 2024 [facility]-Influenza Vaccine [...] CARDIAC DEV ICE PROCEDURES Final Result * [place] Hepatitis C Antibody (11/10/2019 10:02 PM EDT) [place] Hepatitis C Ab NEGATIVE Reference Range: Negative SUNQUEST 11/10/2019 10:0 2 PM EDT 11/10/2019 10:25 PM EDT us Dawit Ely MD LAB BLOOD ORDERABLES Final Resu lt SUNQUEST from Last 3 Months or Most Recently Relevant to Health Maintenance Insurance [employer] MEDICAID Care Teams Load Blocker Relationship Specialty Start Date End Date Brian Narayan MD PCP - General 02/18/21
--- NOTE | 2025-03-15 11:22 | ECG_ITS ---
APPROVED REPORT Exam: Resting ECG HR:75 bpm ECG Measurements Heart Rate 75 AXES MO 121 P 244 QRSd 86 QRS 76 QT 380 T 149 QTc 408 Conclusion JUNCTIONAL RHYTHM SEPTAL MYOCARDIAL INFARCTION , OF INDETERMINATE AGE [40+ ms Q WAVE IN V1/V2] ABNORMAL ECG UNCONFIRMED REPORT Junctional rhythm. Ventricular rate of 75 bpm. QTc 408 Electronically signed by : IBETH HIGHTOWER, 03/16/2025 15:34:49
[2025-03-15 11:25] LABS: Hematocrit 40.7 % (37.0-47.0); Hemoglobin 13.2 g/dL (12.2-16.2); Immature Granulocytes % 0.2 %; Mean Corpuscular HGB Conc 32.4 g/dL (31.8-35.4); Mean Corpuscular Hemoglobin 28.4 pg (27.0-31.2); Mean Corpuscular Volume 87.7 fl (81-99); Nucleated Red Blood Cells % 0 %; Platelet Count 238 K/mm3 (142-424); Red Blood Count 4.64 M/mm3 (4.20-5.40); Red Cell Distribution Width-SD 39.8 fL; White Blood Count 5.8 K/mm3 (4.8-10.8)
[2025-03-15] MEDS: 0.9 % SODIUM CHLORIDE 1000ML 500 ML 999 ML IV (11:25)
[2025-03-15] MEDS: PROCHLORPERAZINE 10MG/2ML VIAL 10 MG IV (11:26)
[2025-03-15 11:28] LABS: Adenovirus,PCR Not Detected (NotDetected); Chlamydophila Pneumoniae, PCR Not Detected (NotDetected); Coronavirus 19, PCR Not Detected (NotDetected); Coronovirus HKU1,PCR Not Detected (NotDetected); Influenza A, PCR Not Detected (NotDetected); Influenza AH1, 2009 Not Detected (NotDetected); Influenza AH1, PCR Not Detected (NotDetected); Influenza AH3,PCR Not Detected (NotDetected); Influenza B, PCR Not Detected (NotDetected); Mycoplasma Pneumoniae, PCR Not Detected (NotDetected); Parainfluenza 1, PCR Not Detected (NotDetected); Parainfluenza 2, PCR Not Detected (NotDetected); Parainfluenza 3, PCR Not Detected (NotDetected); Parainfluenza 4, PCR Not Detected (NotDetected)
[2025-03-15 11:30] VITALS: BP 115/61; PULSE 74; O2SAT 100
[2025-03-15 11:34] LABS: Alanine Aminotransferase 33 U/L (12-78); Albumin Level 4.9 g/dl (3.5-5.0); Albumin/Globulin Ratio 1.2 (1.1-1.8); Alkaline Phosphatase 93 U/L (38-126); Anion Gap 10.7 mEq/L (5-15); Aspartate Amino Transferase 23 U/L (14-36); Bilirubin,Total 0.6 mg/dl (0.2-1.3); Blood Urea Nitrogen 13 mg/dl (7-17); Calcium 9.4 mg/dl (8.4-10.2); Carbon Dioxide 25 mmol/L (22.0-30.0); Chloride 104 mmol/L (98-107); Creatinine Clearance Estimated 97 mL/min (50-200); Creatinine,Serum 0.70 mg/dl (0.52-1.04); Estimated Glomerular Filt Rate 97 ml/min (>60); GFR (African American) 117 ML/MIN (>60); Globulin 4.0 g/dL (1.3-3.2); Glucose 95 mg/dl (74-100); Magnesium 1.8 mg/dl (1.6-2.3); Phosphorous 3.7 mg/dl (2.5-4.5); Potassium 3.7 mmoL/L (3.5-5.1); Sodium 136 mmol/L (136-145); Total Protein,Serum 8.9 g/dl (6.3-8.2)
[2025-03-15 11:38] LABS: INR 1.18 (0.9-1.1); Prothrombin Time 12.9 seconds (10.1-12.5)
--- NOTE | 2025-03-15 12:16 | ED_ITS ---
<Statement entered by Michele Cueto MD - 03/15/25 15:28> I was consulted by the NATY, and we discussed the complexity of the problems being addressed. I approve the treatment and management plan for this patient's care in the emergency department, thus performing a substantive portion of the medical decision making. Michele Cueto MD Discharge Plan Disposition Patient Disposition: Home, Self-Care Condition: Good Prescriptions Prescriptions: No Action progesterone micronized 200 mg capsule 200 mg PO HS 30 Days Qty: 30 4RF estradiol [Danna] 0.0375 mg/24 hr patch semiweekly 1 patch transdermal 2XW Qty: 8 4RF Rx Instructions: apply 1 patch for 3 days alternating with 1 patch for 4 days each week for 3 wks per 4-wk cycle sertraline 50 mg tablet 50 mg PO DAILY warfarin 4 mg tablet 4 mg PO DAILY Qty: 30 1RF aspirin 81 mg Capsule 81 mg PO DAILY Referrals Follow up/Referrals: Brian Narayan MD [Primary Care Provider, Family Practice] - See instructions Activity Restrictions/Add. Instructions Additional Instructions/Restrictions: Your test today were all within expected limits. Your PT was 12.9 and your INR was 1.18. We did not yet have the results of your respiratory panel. Please check on the patient portal later this afternoon to look for the results. If any of these results are positive, the treatment will be symptomatic treatment only. This will include Tylenol, ibuprofen, fluids such as Pedialyte or Gatorade, and rest. Please follow-up with your primary care provider to discuss today's complaint in this ED visit. Return to the emergency department if you have any worsening of current symptoms such as return of headache with a headache that wakes you from sleep, headache that has any visual changes or nausea and vomiting, shortness of breath, or any other emergent medical complaint or concern. Clinical Impressions Clinical Impression: Dizzy spells, Headache Instructions Patient Instructions: Sinus Headache, DI for Sinus Headache, DI for Headache, Dizziness, Nonvertigo Print Language Print Language: Egyptian Discharge ED Provider: Michele Cueto General Adult HPI <ANTONI Quispe - Last Filed: 03/15/25 14:25> General Chief complaint: Headache Stated complaint: H/A, drowsiness, lethargic Time Seen by Provider: 03/15/25 11:07 Mode of Arrival: Ambulatory Source of Information: Patient Description of Symptoms (Recalled from ER Triage Doc. by RN): Reports headache, drowsiness, overly tired since Tuesday. History of Present Illness HPI narrative: Patient is a pleasant 34-year-old female with hearing loss who presents to the emergency department with complaints of dizziness, headache, and fatigue. Patient states has been going on for nearly a week. Patient was seen in urgent care earlier this morning and they instructed her to come to the emergency department. Patient states that the headache has been like previous headaches in the past and denies any thunderclap style, maximal in onset, or wake from sleep headaches. Patient denies any fever or other new diagnosis and denies any other complaints at this time; denies chest pain, abdominal pain, nausea, vomiting, diarrhea. Related Data Home Medications ?Medication ?Instructions ?Recorded ?Confirmed aspirin 81 mg capsule 81 mg PO DAILY 01/25/2402/24 sertraline 50 mg tablet 50 mg PO DAILY 02/22/2502/24 Previous Rx's ?Medication ?Instructions ?Recorded estradiol 0.0375 mg/24 hr 1 patch transdermal 2XW #8 e a 12/27/24 semiweekly transdermal patch (Danna) progesterone micronized 200 mg 200 mg PO HS 30 days #3 0 caps 12/27/24 capsule warfarin 4 mg tablet 4 mg PO DAILY #30 tabs 01/14 Allergies Allergy/AdvReac Type Severity Reaction Status Date / Time No Known Allergies Allergy Verified 03/15/25 09:52 [facility] <ANTONI Quispe - Last Filed: 03/15/25 14:25> [facility] Disclaimer: The information contained in this section may have been updated after the patient was seen, as this information can be updated by other users. Medical History (Updated 03/15/25 @ 14:22 by ANTONI Quispe) Weakness Headache Ovarian bleed Injury of right middle finger Finger injury Toenail fungus Urinary tract infection Surgical History History of right salpingo-oophorectomy History of tubal ligation History of open heart surgery Family History Other Cancer Colon abnormality Hypertension Social History Smoking Status: Never smoker alcohol intake: never substance use type: denies use current occupational status: other Travel in the last 8 weeks?: None household members: spouse housing: house Have you lived/traveled outside [place] in past 30 days?: No Contact w/someone who lives/traveled outside [place] past 30 days?: No Exposure to someone with infectious disease in past 14 days?: No Do you have a fever (greater than 100.4 F or 38 C)?: No Have you tested positive for COVID-19?: No Exposed to someone with COVID-19 in past 14 days?: No Do you have a sore throat?: No Do you have a cough?: No Do you have any weakness?: No Do you have any diarrhea?: No Are you experiencing any unusual bleeding?: No Do you have any muscle aches/pain?: No Do you have any abdominal pain?: No Are you experiencing loss of taste or smell?: No Other Medical History Have you received the Flu Vaccine for this season: No Have you received the Pneumonia Vaccine: No <ANTONI Quispe - Last Filed: 03/15/25 14:25> ROS Obtained: Yes Systems reviewed as appropriate & no additional complaints except as documented Physical Exam <ANTONI Quispe - Last Filed: 03/15/25 14:25> General General appearance: alert and in no apparent distress Comment: Patient appears fatigued but is alert and oriented Head Head exam: atraumatic and normocephalic Eye Eye exam: Present normal appearance, PERRL and EOMI Neck Neck exam: Present normal inspection and trachea midline Chest Chest inspection: Present normal inspection and symmetric chest wall rise; Absent tenderness Respiratory Respiratory exam: Present normal lung sounds bilaterally; Absent respiratory distress, wheezes or stridor Cardiovascular Cardiovascular exam: Present regular rate, normal rhythm, +S1 and +S2 Abdominal Exam Abdominal exam: Present soft and normal bowel sounds; Absent distention, tenderness or guarding Extremities Exam Extremities exam: Present normal inspection Neurological Exam Neurological exam: Present alert and oriented X3 Psychiatric Psychiatric exam: Present normal affect and normal mood Skin Skin exam: Present warm and dry Medical Decision Making <ANTONI Quispe Last Filed: 03/15/25 14:25> Medical Records Medical records reviewed: Yes I reviewed the patient's medical records. Screening: Per USPSTF and CDC recommendations, given the prevalence of disease in our region, it is our hospital?s policy to screen for HIV and viral Hepatitis for all patients aged 18 and over and those with ongoing risk factors. [place] Inquiry Pt receiving controlled substance: No Vital Signs: 03/15/25 11:00 03/15/25 11:01 03/15/25 11:30 Temperature 98.2 F Temperature Source Oral Pulse Rate 78 74 Pulse Rate [Radial] 83 Respiratory Rate 18 Blood Pressure 115/61 115/61 Blood Pressure [Right Arm] 115/61 Blood Pressure Mean [Right Arm] 79 Blood Pressure Source [Right Arm] Automatic Cuff Blood Pressure Position [Right Arm] Sitting 02 Sat by Pulse Oximetry 100 100 100 Oxygen Delivery Method Room Air Room Air Room Air 03/15/25 13:47 03/15/25 14:00 Temperature Temperature Source Pulse Rate 69 69 Pulse Rate [Radial] Respiratory Rate Blood Pressure Blood Pressure [Right Arm] Blood Pressure Mean [Right Arm] Blood Pressure Source [Right Arm] Blood Pressure Position [Right Arm] 02 Sat by Pulse Oximetry 95 100 Oxygen Delivery Method Lab Data Lab results reviewed: Yes I reviewed the patient's lab results. Lab Results 03/15/25 11:16: WBC 5.8, RBC 4.64, Hgb 13.2, Hct 40.7, MCV 87.7, MCH 28.4, MCHC 32.4, RDW 12.5, Plt Count 238, MPV 9.8, Neut % (Auto) 66.7, Lymph % (Auto) 18.0, Trinity % (Auto) 5.8, Eos % (Auto) 8.8, Baso % (Auto) 0.5, Neut # (Auto) 3.9, Lymph # (Auto) 1.1, Trinity # (Auto) 0.3, Eos # (Auto) 0.5 H, Baso # (Auto) 0.0, PT 12.9 H, INR 1.18 H, Sodium 136, Potassium 3.7, Chloride 104, Carbon Dioxide 25, Anion Gap 10.7, BUN 13, Creatinine 0.70, Estimated Creat Clear 97, Estimated GFR 97, Est GFR ( Amer) 117, Glucose 95, Calcium 9.4, Phosphorus 3.7, Magnesium 1.8, Total Bilirubin 0.6, AST 23, ALT 33, Alkaline Phosphatase 93, Total Protein 8.9 H, Albumin 4.9, Globulin 4.0 H, Albumin/Globulin Ratio 1.2 03/15/25 11:22: Chlamy pneumoniae PCR Not detected, Adenovirus (PCR) Not detected, B. pertussis DNA (PCR) Not detected, Coronavirus OC43 (PCR) Not detected, Coronavirus HKU1 (PCR) Not detected, Coronavirus 229E (PCR) Not detected, SARS-CoV-2 (PCR) Not detected, Coronavirus NL63 (PCR) Not detected, Human Metapneumovir PCR Not detected, Influenza A (H1) PCR Not detected, Influ A (H1N1/09) PCR Not detected, Influenza A (H3) PCR Not detected, Influenza Type A (PCR) Not detected, Influenza Type B (PCR) Not detected, M. pneumoniae (PCR) Not detected, Parainfluenza 1 (PCR) Not detected, Parainfluenza 2 (PCR) Not detected, Parainfluenza 3 (PCR) Not detected, Parainfluenza 4 (PCR) Not detected, RSV (PCR) Not detected, Entero/Rhino (PCR) Not detected 03/15/25 13:46: Urine Color Yellow, Urine Appearance Clear, Urine pH 7.0, Ur Specific [place] 1.015, Urine Protein Negative, Urine Glucose (UA) Negative, Urine Ketones Negative, Urine Blood Negative, Urine Nitrate Negative, Urine Bilirubin Negative, Urine Urobilinogen 0.2, Ur Leukocyte Esterase Negative 03/15/25 11:16 03/15/25 11:16 Orders (Tests/Meds): ED MEDICATIONS Discontinued Medications Generic Name Dose Route Start Last Admin Trade Name Freq PRN Reason Stop Dose Admin Diphenhydramine HCl 25 mg 03/15/25 11:14 03/15/25 11:25 Diphenhydramine 50mg/Ml Vial IV 03/15/25 11:15 25 mg ONCE ONE Administration Sodium Chloride 500 mls @ 999 mls/hr 03/15/25 11:20 03/15/25 12:07 Sod Chlor 0.9% 1000ml Bag IV 03/15/25 11:50 Infused .Q31M ONE Infusion Prochlorperazine Edisylate 10 mg 03/15/25 11:14 03/15/25 11:26 Prochlorperazine 10mg/2ml Vial IV 03/15/25 11:15 10 mg ONCE ONE Administration ORDERS Category Date Time Status CBC w/Auto Diff [Complete Blood Count Auto Diff] Stat Lab 03/15/25 11:16 Completed CMP [Comprehensive Metabolic Panel] Stat Lab 03/15/25 11:16 Completed Full Resp Panel w/COVID ([facility]) Routine Lab 03/15/25 11:22 Completed INR [Prothrombin Time INR] Stat Lab 03/15/25 11:16 Completed MAG [Magnesium] Stat Lab 03/15/25 11:16 Completed PHOS [Phosphorous] Stat Lab 03/15/25 11:16 Completed UA [Urinalysis and Microscopic] Stat Lab 03/15/25 13:46 Results Medical Decision Narrative: In summary patient is an pleasant 34-year-old female who presents to the emergency department for evaluation of headache with dizzy spells. Patient is hemodynamically stable upon arrival, afebrile. Unremarkable physical exam except for hearing loss. Differential diagnosis includes viral infection, UTI, electrolyte derangement. Initial workup will be conducted with EKG and labs. Initial interventions include IV fluids, Compazine, and Benadryl. Initial workup reviewed by nd labs are generally unremarkable with no significant electrolyte derangement, kidney injury, or transaminitis on CMP, no significant leukocytosis or anemia on CBC, with no evidence for infection on UA. Upon repeat evaluation patient had resolution of headache and dizziness. Given this, patient is stable to be discharged home to follow-up with primary care provider. Patient is encouraged to check the patient portal for the results of her respiratory panel later on this afternoon. Appropriate treatment discussed at bedside and in discharge instructions. Patient verbalized understanding of and is amenable to these plans. Additional return precautions also discussed at bedside and in discharge instructions. I reviewed the patient's EKG and did not see any sign of heart block, long QT, WPW, Brugada, or HOCM. Imaging considered but not clinically indicated at this time. Patient's headache is described as essentially like her chronic headaches, no maximal at onset, wake from sleep, or vision changes endorsed when asked. Patient has no concerns for social determinants of health. She does not have any housing or food insecurity and does have regular primary care and specialty appointments. <Michele Cueto MD - Last Filed: 03/15/25 12:21> Vital Signs: 03/15/25 11:00 03/15/25 11:01 03/15/25 11:30 Temperature 98.2 F Temperature Source Oral Pulse Rate 78 74 Pulse Rate [Radial] 83 Respiratory Rate 18 Blood Pressure 115/61 115/61 Blood Pressure [Right Arm] 115/61 Blood Pressure Mean [Right Arm] 79 Blood Pressure Source [Right Arm] Automatic Cuff Blood Pressure Position [Right Arm] Sitting 02 Sat by Pulse Oximetry 100 100 100 Oxygen Delivery Method Room Air Room Air Room Air 03/15/25 13:47 03/15/25 14:00 Temperature Temperature Source Pulse Rate 69 69 Pulse Rate [Radial] Respiratory Rate Blood Pressure Blood Pressure [Right Arm] Blood Pressure Mean [Right Arm] Blood Pressure Source [Right Arm] Blood Pressure Position [Right Arm] 02 Sat by Pulse Oximetry 95 100 Oxygen Delivery Method Lab Data Lab Results 03/15/25 11:16: WBC 5.8, RBC 4.64, Hgb 13.2, Hct 40.7, MCV 87.7, MCH 28.4, MCHC 32.4, RDW 12.5, Plt Count 238, MPV 9.8, Neut % (Auto) 66.7, Lymph % (Auto) 18.0, Trinity % (Auto) 5.8, Eos % (Auto) 8.8, Baso % (Auto) 0.5, Neut # (Auto) 3.9, Lymph # (Auto) 1.1, Trinity # (Auto) 0.3, Eos # (Auto) 0.5 H, Baso # (Auto) 0.0, PT 12.9 H, INR 1.18 H, Sodium 136, Potassium 3.7, Chloride 104, Carbon Dioxide 25, Anion Gap 10.7, BUN 13, Creatinine 0.70, Estimated Creat Clear 97, Estimated GFR 97, Est GFR ( Amer) 117, Glucose 95, Calcium 9.4, Phosphorus 3.7, Magnesium 1.8, Total Bilirubin 0.6, AST 23, ALT 33, Alkaline Phosphatase 93, Total Protein 8.9 H, Albumin 4.9, Globulin 4.0 H, Albumin/Globulin Ratio 1.2 03/15/25 11:22: Chlamy pneumoniae PCR Not detected, Adenovirus (PCR) Not detected, B. pertussis DNA (PCR) Not detected, Coronavirus OC43 (PCR) Not detected, Coronavirus HKU1 (PCR) Not detected, Coronavirus 229E (PCR) Not detected, SARS-CoV-2 (PCR) Not detected, Coronavirus NL63 (PCR) Not detected, Human Metapneumovir PCR Not detected, Influenza A (H1) PCR Not detected, Influ A (H1N1/09) PCR Not detected, Influenza A (H3) PCR Not detected, Influenza Type A (PCR) Not detected, Influenza Type B (PCR) Not detected, M. pneumoniae (PCR) Not detected, Parainfluenza 1 (PCR) Not detected, Parainfluenza 2 (PCR) Not detected, Parainfluenza 3 (PCR) Not detected, Parainfluenza 4 (PCR) Not detected, RSV (PCR) Not detected, Entero/Rhino (PCR) Not detected 03/15/25 13:46: Urine Color Yellow, Urine Appearance Clear, Urine pH 7.0, Ur Specific [place] 1.015, Urine Protein Negative, Urine Glucose (UA) Negative, Urine Ketones Negative, Urine Blood Negative, Urine Nitrate Negative, Urine Bilirubin Negative, Urine Urobilinogen 0.2, Ur Leukocyte Esterase Negative Orders (Tests/Meds): ED MEDICATIONS Discontinued Medications Generic Name Dose Route Start Last Admin Trade Name Freq PRN Reason Stop Dose Admin Diphenhydramine HCl 25 mg 03/15/25 11:14 03/15/25 11:25 Diphenhydramine 50mg/Ml Vial IV 03/15/25 11:15 25 mg ONCE ONE Administration Sodium Chloride 500 mls @ 999 mls/hr 03/15/25 11:20 03/15/25 12:07 Sod Chlor 0.9% 1000ml Bag IV 03/15/25 11:50 Infused .Q31M ONE Infusion Prochlorperazine Edisylate 10 mg 03/15/25 11:14 03/15/25 11:26 Prochlorperazine 10mg/2ml Vial IV 03/15/25 11:15 10 mg ONCE ONE Administration ORDERS Category Date Time Status CBC w/Auto Diff [Complete Blood Count Auto Diff] Stat Lab 03/15/25 11:16 Completed CMP [Comprehensive Metabolic Panel] Stat Lab 03/15/25 11:16 Completed Full Resp Panel w/COVID ([facility]) Routine Lab 03/15/25 11:22 Completed INR [Prothrombin Time INR] Stat Lab 03/15/25 11:16 Completed MAG [Magnesium] Stat Lab 03/15/25 11:16 Completed PHOS [Phosphorous] Stat Lab 03/15/25 11:16 Completed UA [Urinalysis and Microscopic] Stat Lab 03/15/25 13:46 Results ECG Data Tracing #1: I reviewed this ECG and interpreted as documented below: Normal sinus rhythm. No ST elevation or depression. QTc of 408 Critical Care <ANTONI Quispe - Last Filed: 03/15/25 14:25> Critical Care Time Critical Care Time: No
[2025-03-15 13:47] VITALS: PULSE 69; O2SAT 95
[2025-03-15 13:50] LABS: Microscopic, Urine URINE MICROSCOPIC (MICROSCOPIC)
[2025-03-15 14:00] VITALS: PULSE 69; O2SAT 100
--- NOTE | 2025-03-15 14:04 | PC.NURSE ---
I CALLED LAB AND SPOKE TO NAIF TO INQUIRE ABOUT THE PTS UA RESULTS. SHE STATES ITS RUNNING AT THIS TIME.
[2025-03-15 14:07] LABS: Bilirubin,Urine Negative (Negative); Color,Urine YELLOW (Yellow); Glucose,Urine (UA) Negative (Negative); Ketones,Urine Negative (Negative); Leukocyte Esterase,Urine Negative (Negative); PH,Urine 7.0 (5.0-8.5); Protein,Urine Negative (Negative); Specific Gravity, Urine 1.015 (1.005-1.030); Urobilinogen,Urine 0.2 EU/dl (0.2)
[2025-03-15 14:28] LABS: Bacteria,Urine 4+ /lpf; Squamous Epithelial Cell,Urine 50-100 #/hpf (0-5)
[2025-03-15 14:35] VITALS: BP 110/60; PULSE 69; RESP 18; TEMP 36.8; O2SAT 100
== END 2025-03-15 14:36 | disposition home or self-care (01) ==
PROVIDERS: Physician Assistant; Emergency Provider Student in an Organized Health Care Education/Training Program; PCP Family Medicine
DX: R51.9 Headache, unspecified (principal); R42 Dizziness and giddiness; R53.83 Other fatigue
CPT/HCPCS: 0223U; 80053; 81001; 83735; 84100; 85025; 85610; 87086; 93005; 96374; 96375; 99284; 99285; J0780; J1200; J7030